=== PATIENT | female | born 1965 | race Caucasian/White ===

== ENCOUNTER 2023-10-03 13:04 | Outpatient (OUT) | payer OTHER, SELFPAY ==
--- NOTE | 2023-10-03 13:08 | VEIN_ITS ---
Patient Name: ANUPAMA CARDOSO MR#: [id number] : 1965 Exam Date: 10/03/2023 Ordering Doctor: DAISY ALEXANDER CNP RADIOLOGY REPORT PROCEDURE: VC EXT VENOUS REFLUX ALICIA LMTD COMPARISON: None. INDICATIONS: I83.813 Bilateral painful varicose veins TECHNIQUE: Duplex imaging of the lower extremity to assess the deep and superficial venous system for the presence of deep or superficial venous incompetence and to document the location and severity of disease. The study includes evaluation of the great saphenous vein (GSV), anterior accessory saphenous vein (AASV) and small saphenous vein (SSV). Patient scanned in reverse Trendelenburg and standing. FINDINGS: RIGHT LOWER EXTREMITY: Saphenofemoral Junction Reflux: Yes 8.6mm 3.4 sec GSV: Diam (mm) Reflux/ Time (sec) Proximal Thigh 7.5 Yes 0.7 Mid Thigh 5.2 Yes 0.5 Distal Thigh 4.7 Yes 1.1 Prox Calf 4.0 Yes 0.2 Mid Calf 5.2 Yes 0.7 Saphenopopliteal Junction Reflux: 6.3mm Yes 0.7 SSV: Proximal Calf 5.5 Yes 0.5 Mid Calf 5.0 Yes 3.8 AASV: Proximal Thigh 6.1 Yes 1.0 Mid Thigh 4.4 Yes 2.1 Distal Thigh Thrombi: No acute or chronic thrombus. Compressibility: Normal. Flow: Mild deep venous reflux. Preforator: None. Tech Note: Incompetent varicose vein mid posterior calf off of SSV measures 4.1 mm with 0.6s reflux. Varicose vein mid anterior thigh off of AASV measures 4.4 mm with 1.7s reflux. Varicose vein proximal lateral lower leg measures 5.0 mm with 2.1s reflux. Varicose vein proximal medial lower leg measures 4.0 mm with 0.8s reflux. LEFT LOWER EXTREMITY: Saphenofemoral Junction Reflux: Yes 7.0 mm 0.8 sec GSV: Diam (mm) Reflux/Time (sec) Proximal Thigh 8.0 Yes 1.2 Mid Thigh 4.8 Yes 1.0 Distal Thigh 4.2 Yes 3.1 Prox Calf 3.9 Yes 2.1 Mid Calf 2.6 Yes 0.3 Saphenopopliteal Junction Relux: 5.5 mm Yes 0.6 SSV: Proximal Calf 6.1 Yes 0.7 Mid Calf 4.4 Yes 0.7 AASV: Not present Proximal Thigh Mid Thigh Distal Thigh Thrombi: No acute or chronic thrombus. Compressibility: Normal. Flow: Mild deep venous reflux. Hydrochloric Acid Operator: Mid medial lower leg measures 3.2 mm with 3.3s reflux. Tech Note: Incompetent varicose vein proximal medial lower leg measures 4.1 mm with 2.0s reflux. Varicose vein mid lateral calf off of SSV measures 4.0 mm with 1.0s reflux. CONCLUSION: 1. Abnormally dilated and incompetent bilateral great saphenous veins, bilateral small saphenous veins, and right anterior accessory saphenous vein. 2. Multiple incompetent branch saphenous varicosities bilaterally. Dictated by: Heriberto Barnes M.D. on 10/03/2023 at 13:58 Approved by: Heriberto Barnes M.D. on 10/03/2023 at 14:19
--- NOTE | 2023-10-03 13:08 | VEIN_ITS ---
Patient Name: ANUPAMA CARDOSO MR#: [id number] : 1965 Exam Date: 10/03/2023 Ordering Doctor: DAISY ALEXANDER CNP RADIOLOGY REPORT PROCEDURE: FACILITY [facility] VEIN [facility] - OFFICE VISIT INITIAL COMPARISON: None. PROGRESS NOTES: [age] year old female who presents with a 15 year history of gradual onset dilated bulging veins, leg pain, swelling, discolored veins. The patient's leg symptoms are symmetric bilaterally. There has been a progression of symptoms over time. This increases with prolonged leg dependency. The patient describes an improvement with rest, elevation, exercise, support stockings. The patient denies any signs and symptoms to suggest arterial ischemia. The patient describes a family history varicose veins on maternal side. The patient has drinking and smoking history of occasional alcohol consumption; no tobacco use. Patient has a past medical history significant for hypothyroidism, migraine headaches. The patient denies a history of deep venous thrombus or pulmonary embolus. See separate history and physical for medication list. No prior treatment for varicose or spider veins. Current use of compression stockings. After review of nurse notes, history and physical exam I discussed at length the pathophysiology of venous hypertension and possible treatments, therapies and strategies available. We discussed at length the importance of elevating the lower extremities above the level of the heart, increased physical activity and compression stocking use. Ultrasound venous reflux study performed today was discussed at length with the patient. The report demonstrates abnormally dilated and incompetent bilateral great saphenous veins, bilateral small saphenous veins, and right anterior accessory saphenous vein. There are multiple dilated and incompetent branch saphenous varicosities. PHYSICAL EXAM: The right leg demonstrates several varicosities, multiple reticular and spider veins, no ulceration, mild edema, no skin discoloration. The left leg demonstrates several varicosities, multiple reticular and spider veins, no ulceration, mild edema, no skin discoloration. Both thighs, legs and feet were symmetrically warm to the touch. Good posterior tibial and dorsalis pedis pulses were present bilaterally. VEIN/ Facility NEW [facility] IMPRESSION: 1. Bilateral lower extremity venous insufficiency 2. Bilateral lower extremity varicose veins 3. Mild bilateral lower extremity subcutaneous edema 4. No flow significant arterial disease 5. CEAP: C3, EC, , [place] PLAN: 1. Continued use of compression stockings 2. Elevated legs and increased physical activity symptomatic relief 3. Endovenous laser ablation of right great saphenous vein, left great saphenous, right small saphenous, left small saphenous, right anterior accessory saphenous vein. 4. Microfoam chemical ablation of incompetent branch saphenous varicosities bilaterally. 5. Bilateral sclerotherapy for prominent reticular and spider veins. Nurse notes, history and physical were reviewed and confirmed, see attached forms. The nurse was present throughout the physical exam and consultation Dictated by: Heriberto Barnes M.D. on 10/03/2023 at 14:19 Approved by: Heriberto Barnes M.D. on 10/03/2023 at 14:24
== END 2023-10-03 13:05 | disposition home or self-care (01) ==
LOC: VC 13:04
PROVIDERS: PCP Student in an Organized Health Care Education/Training Program
DX: I78.1 Nevus, non-neoplastic (principal); I83.813 Varicose veins of bilateral lower extremities with pain
CPT/HCPCS: 93970; G0463

== ENCOUNTER 2023-10-25 13:03 | Outpatient (OUT) | payer OTHER, SELFPAY ==
--- NOTE | 2023-10-25 13:05 | VEIN_ITS ---
The [address] [address] Patient Name: ANUPAMA CARDOSO MRN: [id number] date: 1965 Sex: F Assigned Patient Location: Current Patient Location: Accession/Order Number: [id number] Exam Date: 10/25/2023 13:14 Report Date: 10/25/2023 15:25 At the request of: FRANCES LEWIS Procedure: VC Endovenous Ablation 1VeinRT EXAMINATION: VC Endovenous Ablation 1VeinRT HISTORY: Pain due to varicose veins of bilateral legs I83.813 The risks and benefits of the procedure had been previously discussed, and were rediscussed at length. Informed written consent was obtained. Rj Mathur RN and Roma Arevalo RDMS, RVT assisted. Time out procedure was performed. The right lower extremity was prepared and draped in the usual sterile fashion to allow knee flexion in the sterile field. Duplex ultrasound probe was draped in a sterile cover, sterile transmission gel was used. Venous mapping was performed with the areas of dilation and large tributaries marked. The total length was 42 cm from the entry proximal calf to 3 cm below the Saphenofemoral junction. The diameter of the right great saphenous vein ranged from 7.5 mm. A 30 gauge needle and 1% buffered lidocaine was used to anesthetize the entry site. A 4 mm incision was made with a scalpel and the saphenous vein was entered percutaneously under direct ultrasound guidance with a micropuncture set, a single stick was successful in gaining access. A micro-guide wire was inserted and the needle removed. A micro-set including a dilator was inserted over the microwire and the needle and dilator were removed. A guide wire was inserted through the micro-set and guided through the saphenous vein to the saphenofemoral junction. The dilator was removed and an introducer sheath was inserted over the wire until the end of the sheath entered the saphenofemoral junction. The dilator and wire were removed and the 600 micron fiber was introduced and placed and positioned so that it extended beyond the sheath and was 3 cm distal to the saphenofemoral or saphenopopliteal junction. Final position of the fiber was determined by ultrasound guidance and duplex imaging. Tumescent anesthetic was delivered by ultrasound guidance. 175 cc of fluid was delivered along the entire course of the saphenous vein. The solution consisted of 1000 cc of normal saline with 40 mL of 1% lidocaine and 20 mL of sodium bicarbonate. A final positioning check was made. The energy source was turned on by means of the foot pedal and the fiber and sheath were withdrawn. The total number of Joules delivered was 2077. The laser was active for 260 seconds under continuous pulse, average laser use of 8 J. Laser start time: 1:56 PM Laser stop time: 2:01 PM Date: 10/25/2023. A duplex ultrasound revealed compressibility and flow at the saphenofemoral junction immediately after the procedure. Hemostasis at the access site was achieved. The skin incision of the saphenous vein was closed with a 4 x 4. A compression stocking was applied. Postop instructions were given. A follow up appointment was recommended and scheduled. The patient tolerated the procedure well. Electronically authenticated by: JOSE FISHER Date: 10/25/2023 15:25
[2023-10-25] MEDS: LIDOCAINE HCL 1% 100 MG/10 ML MDV INJ (13:40)
[2023-10-25] MEDS: 0.9 % SODIUM CHLORIDE 500 ML, LIDOCAINE HCL 20 ML, SODIUM BICARBONATE 10 MEQ INJ (13:41)
== END 2023-10-25 13:04 | disposition home or self-care (01) ==
LOC: VC 13:04
PROVIDERS: PCP Radiology Diagnostic Radiology; Visit Provider Radiology Diagnostic Radiology
DX: I83.813 Varicose veins of bilateral lower extremities with pain (principal)
CPT/HCPCS: 36478

== ENCOUNTER 2023-11-01 14:23 | Outpatient (OUT) | payer OTHER, SELFPAY ==
--- NOTE | 2023-11-01 14:25 | VEIN_ITS ---
Patient Name: ANUPAMA CARDOSO MR#: [id number] : 1965 Exam Date: 11/01/2023 Ordering Doctor: DR DELBERT ROSA M.D. RADIOLOGY REPORT PROCEDURE: VC FACILITY [facility] VEIN CENTER - OFFICE VISIT FOLLOW UP COMPARISON: None. PROGRESS NOTES: The patient reports no significant problems following intravenous laser ablation of the right great saphenous vein. The patient has worn her compression stockings. The patient require oral analgesics. The patient has done exercises as instructed. Physical exam demonstrates no bruising. No erythema or warmth to suggest cellulitis or thrombophlebitis. No active ulceration. The thrombosed right great saphenous vein can be partially palpated Review of the ultrasound performed the same day demonstrates occlusive thrombus extending throughout the treated right great saphenous vein with heat induced thrombus 1.9 cm from the saphenofemoral junction. The patient expressed a desire to proceed with treatment of incompetent left great saphenous vein. VEIN/ Facility EST LMTD IMPRESSION: 1. Successful ablation of the right great saphenous vein. 2. Persistent incompetent left great saphenous vein. PLAN: Intravenous laser ablation left great saphenous vein Nurse notes, history and physical were reviewed and confirmed, see attached forms. The nurse was present throughout the physical exam and consultation Dictated by: Delbert Rosa MD on 11/01/2023 at 14:42 Approved by: Delbert Rosa MD on 11/01/2023 at 14:45
--- NOTE | 2023-11-01 14:26 | VEIN_ITS ---
Patient Name: ANUPAMA CARDOSO MR#: [id number] : 1965 Exam Date: 11/01/2023 Ordering Doctor: DR DELBERT ROSA M.D. RADIOLOGY REPORT PROCEDURE: VC EXT VENOUS RT LMTD COMPARISON: None. INDICATIONS: Phlebitis of superficial veins of rt lower extremity I80.01 TECHNIQUE: Lower extremity corrales scale and Duplex Doppler evaluation of the deep venous system from the inguinal ligament through the calf veins. FINDINGS: REGION: Right lower extremity. THROMBI: Negative for DVT. Heat induced thrombus visualized 1.9cm from the SFJ. The heat induced thrombus extends from groin to proximal calf. COMPRESSIBILITY: Non-compressible segments corresponding to thrombus FLOW: Areas of no flow corresponding to thrombus CONCLUSION: Post ablation occlusion of the right great saphenous vein with heat induced thrombus 1.9 cm from the saphenofemoral junction Dictated by: Delbert Rosa MD on 11/01/2023 at 14:39 Approved by: Delbert Rosa MD on 11/01/2023 at 14:39
== END 2023-11-01 14:24 | disposition home or self-care (01) ==
LOC: VC 14:23
PROVIDERS: PCP Radiology Diagnostic Radiology; Visit Provider Radiology Diagnostic Radiology
DX: I80.02 Phlebitis and thrombophlebitis of superficial vessels of left lower extremity (principal)
CPT/HCPCS: 93971; G0463

== ENCOUNTER 2023-12-14 12:21 | Outpatient (OUT) | payer OTHER, SELFPAY ==
[2023-12-14] MEDS: 0.9 % SODIUM CHLORIDE 500 ML, LIDOCAINE HCL 20 ML, SODIUM BICARBONATE 10 MEQ INJ (12:25)
[2023-12-14] MEDS: LIDOCAINE HCL 1% 100 MG/10 ML MDV INJ (12:25)
--- NOTE | 2023-12-14 12:25 | VEIN_ITS ---
[address] [address] Patient Name: ANUPAMA CARDOSO MRN: [id number] date: 1965 Sex: F Assigned Patient Location: Current Patient Location: Accession/Order Number: [id number] Exam Date: 12/14/2023 12:39 Report Date: 12/14/2023 13:19 At the request of: FRANCES LEWIS Procedure: VC Endovenous Ablation 1VeinLT EXAMINATION: VC Endovenous Ablation 1Vein, left great saphenous vein HISTORY: Pain due to varicose veins of bilateral legs I83.813 COMPARISON: No relevant comparison available. TECHNIQUE: The risks and benefits of the procedure had been previously discussed, and were rediscussed at length. Informed written consent was obtained. Carol Arevalo and Rj Mathur assisted. Time out procedure was performed. The left lower extremity was prepared and draped in the usual sterile fashion to allow knee flexion in the sterile field. Duplex ultrasound probe was draped in a sterile cover, sterile transmission gel was used. Venous mapping was performed with the areas of dilation and large tributaries marked. The total length was 39 cm from the entry mid calf to 3 cm below the saphenofemoral junction. The diameter of the greater saphenous vein ranged from 5-8 mm. A 30 gauge needle and 1% buffered lidocaine was used to anesthetize the entry site. A 4 mm incision was made with a scalpel and the saphenous vein was entered percutaneously under direct ultrasound guidance with a micropuncture set, a single stick was successful in gaining access. A micro-guide wire was inserted and the needle removed. A micro-set including a dilator was inserted over the microwire and the needle and dilator were removed. A 0.018 guide wire was inserted through the micro-set and threaded through the saphenous vein to the saphenofemoral junction. The dilator was removed and an introducer sheath was inserted over the wire until the end of the sheath entered the saphenofemoral junction. The dilator and wire were removed and the 600 micron fiber was introduced and placed and positioned so that it extended beyond the sheath and was 3 cm peripheral to the saphenofemoral femoral junction. Final position of the fiber was determined by ultrasound guidance and duplex imaging. Tumescent anesthetic was delivered by ultrasound guidance. 225 cc of fluid was delivered along the entire course of the saphenous vein. The solution consisted of 1000 cc of normal saline with 40 mL of 1% lidocaine and 20 mL of sodium bicarbonate. A final positioning check was made. The energy source was turned on by means of the foot pedal and the fiber and sheath were withdrawn. The total number of Joules delivered was 1901. The laser was active for 238seconds under continuous pulse, average laser use of 8 J. Laser start time 1311 12/14/2023 . Laser stop time 1315 12/14/2023 . A duplex ultrasound revealed compressibility and flow at the saphenofemoral junction immediately after the procedure. Hemostasis at the access site was achieved. The skin incision of the saphenous vein was closed with a 4 x 4. A compression stocking was applied. Postop instructions were given. A follow up appointment was recommended and scheduled. The patient tolerated the procedure well and was discharged in good condition . VEIN/VC Endovenous Ablation 1VeinLT IMPRESSION: Technically successful endovenous laser ablation of the left great saphenous vein Electronically authenticated by: FRANCES LEWIS Date: 12/14/2023 13:19
--- OUTSIDE RECORDS SUMMARY | 2023-12-14 12:28 | XMS_ITS | CCD ---
Author Organization [facility] Care Team Providers Care Rn Radiation Oncology Name Role Phone Paola ALEXANDER Primary Care Physician [phone] PAOLA ALEXANDER Attending Unavailab PAOLA Burden Attending Unavailab bud Medications Current Medications Medication Drug Class(es) Dates Sig (Normalized) Sig (Original) ciclopirox 80 mg/ml topical solution (3 sources) Start: 08-24-2021 ciclopirox topical 8% solution 1 kelsi, Topical, Daily, 9.9 mL, Refill(s) 2, Apply to adjacent skin and affected nails daily. Remove with alcohol every 7 days., [facility], 170, cm, 08/24/21 14:04:00 EST, Height/Length Dosing, 92.1, kg, 08/24/21 14:04:00 EST, Weight Dosing Start Date: 08/24/21 Status: Ordered FLUoxetine 20 mg oral capsule (3 sources) Serotonin Reuptake Inhibitor Start: 12-18-2014 take 1 capsule by mouth once daily FLUoxetine 20 mg Cap 20 mg = 1 cap(s), Oral, Daily, Refills(s) 0, Depression Start Date: 12/18/14 Status: Ordered levothyroxine sodium 0.05 mg oral tablet (3 sources) l-Thyroxine Start: 07-07-2019 levothyroxine 50 mcg (0.05 mg) Tab Refills(s) 0 Start Date: 07/07/19 Status: Ordered Ventolin HFA 90 mcg/inh Aerosol (3 sources) Start: 07-05-2020 take 2 puff(s) by inhalation four times daily Ventolin HFA 90 mcg/inh Aerosol 2 puff(s), Inhalation, QID Shortness of breath or wheezing, 1 EA, Refill(s) 0, [facility], 170, cm, 07/05/20 14:58:00 EST, Height/Length Dosing, 93.5, kg, 07/05/20 14:58:00 EST, Weight Dosing Start Date: 07/05/20 Status: Ordered Completed/Discontinued Medications Medication Drug Class(es) Dates Sig (Normalized) Sig (Original) rizatriptan 10 mg oral tablet (3 sources) Serotonin-1b and Serotonin-1d Receptor Agonist Start: 08-24-2021 Maxalt 10 mg Tab 10 mg = 1 tab(s), Oral, Daily, PRN Migraine headache, one po at onset migraine. 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 Mycoses (3 sources) Onychomycosis of toenails 08-24-2021 Episodic Other and unspecified benign neoplasm (3 sources) Polyp of colon 07-27-2021 Episodic Other nutritional; endocrine; and metabolic disorders (3 sources) Body mass index 30+ - obesity 08-24-2021 Chronic Other nutritional; endocrine; and metabolic disorders (3 sources) Simple obesity 07-05-2020 Chronic Thyroid disorders (3 sources) Hypothyroidism 07-07-2019 Chronic Results Test Name Value Interpretation Reference Range Facility CHEMISTRYOrdered By: SYSTEM SYSTEM on 07-11-2023 TSH Qn 1.44 m[IU]/L Normal 0.34 - 5.60 mcIU/mL Remisol Chem Physician Orderon 06-07-2023 Physician Order [id number] Normal [facility] Coding Summary.on 06-15-2022 Coding Summary. CD:[id number] +PGhlYWQ+PE1F ASQpE52zvDYaz S6WE8nJHF4TWX TVMIIMAM3KML9 ylJE8XIhuO6As biAv EiuffGDaGJ38U Qu4ATM6yQxhJI hktM3yrFQmW3w 1JeFyLL86zN31 XFtjNUCvBzY1G jZpbjsgbWFy B5exUvWswHHyX yc+PHRhYmxlIH dpZHRoPScxMDA vCsDxtSddVZ7v Ok0yTOGqMQFnj GxhcHNlOiBj l9viGMBqJCfqS M0whBqhM4ByyE S5DRByf5e9Fh2 8dHI+PHRkIHN0 yQqqAWteh206X aDvz0vbAJN6 yYBeJXviMTL7O 90km3Z9KXPzDQ BvUDR9oOX7uH6 jkUqjqjytA7Bw gBXzCbZ2AHZ1a RYgfJ6fwYky aumiiN2oPxw+Q 56FQD0HNCATDC 9GQcb6M7HwIak vdHI+FO21KMHs ML90sJChePMbq 0ejfEl8WzVe GBDiMSJ5kWfxM Cwrl4XdWWOmN1 8msZRxg1U6LHA vbGxhcHNlOyBl vIK9dG3zOGtir hrzm4jqilbj Bvolq3lkda52b P11Y45wSSxnIG ZkIKO1WXUdWWX brMjwsc5rcB9m Ii8+SNlha1jrm 1eroCr7XpLc JSIgdmFsaWduP UK0i2ZvXt51Z0 EnvLdku2LtJpk 2ol35fEKvk4M1 vQV8UBqcPHWml P5bVTutMwG6 QRNfLkYdeV02x HEgCIyaQt6deB ygtIpaVO2bEUY rlxgsWLKpfE6r LWJvdHRvbTogM F0aBKSvkmpf s482HuIdZXA8U YHezJFlX3GjgA 9yOiAjMDAwMDA xY2FvdHOpZUyu Z300ULtzJzY0P FUphsArR2Xv XNGzqNtiGgV8n 8S0Tf1Xu1Kate zgSNV9GZivHDU pQrB7HxDbUqR6 P3XaXdq3ECOil FlmYH7uV1Wn ZGRpbmctcmlna TH2TNVbYAIwlZ 94dQIePFvwPe7 bf9K0m093NVCl TOAqlM07Ld0kt DogMTBwdCBU dU3tmnhcm6xoc jogIzAwMDAwMD x1VAi6DBFenZf pNwNmATR1PjY5 PCP0sDZfxR7kb UfqwhsytU7f Oyc+A35gaF8vM KV7OTT7wqqzVF DiwdNwNF85IT3 8Y7XbTitqcQGy bGU+PGRpdiBzd GlzFM5nDgHl m4ujv0KkZDobA 2RkZGRkZDsnPj c8MGWbDGW8aXR 4xO2sFZAfYLzt q4H6jQG5F4Anc oJcte8ef1fd ECMsNRfxT33go ERad9N3OUYfsB I1XNEtlEmaUlA abU70Ugb+PGNv jLrzm9YcGlvwy 7kbg8gmbJj6 IjMwJSIgdmFsa JnoNJR9i2PdGr 79Q43cVRifKIB oPSIxNSUiIHZh eQehqi3ntH8yO i8+PGNvbCB3 bIC8cB1qNZQqL iX4MFnxV270Ms HjfQMsXrhim9p ie7hwuTy6NsCc JSIgdmFsaWduP DI3w2VyRh26 H89vOEjjQONyE SIyMCUiIHZhbG mvrn9txZ1xOt0 +ZK0lf6qneu38 jW15cBK+PHRkI JH9aNxwWBej CCWwrW6fVQwoH hS5XPIxJwQstP 20aXBvGCntEa3 imWrnnFzrUP3m XMYmrseos258H xBfr8baVVKd mCLwLGtpKII6X 16pd8W8WYQvAQ WpAXD0mPZ7hA5 hbGlnbjogbGVm dDsgdmVydGljY IapZXqiR625 IHRvcDsnPlBhd GllbnQgTmFtZT o7C4YcScy2YJC gcIorKW5iyBGh JIuvAs1jtFjia IqqRZ1hQYZi jolmn460MyUul 2xkIDEwcHQgVG woGWK3O72ox9Z 1TIFkTSOuELZ4 wMQ0wO5mnAsrl jogbGVmdDsg dmVydGljYWwtY KdaH562EAKyzT snPkJpcnRoIER zxUN9AA67CU84 rMHwz4S9yQG6K 3BhZGRpbmct fagngPQ9JZAtS CVrmK38Qn8cuC ppZc3tKTAnARE 4CNCovCZhO6We kF0jJeAyRNUeE INjP9RxnQBs MOocO009ZPyxF oN0KJAgazMeT8 FsLWFsaWduOiB 8v8X2Yv7FL6U4 UV09ZD91uMBjk 7J6kVS4C4Su ZGRpbmctcmlna EV1MTEcFEPttR 38Tz0udNdtGr6 cDAEwPWH2VVNt qMXdV8FjbQ7xB iAjMDAwMDAw S5BrsNIaFWgrA 824HSqnEwH9LK EmtiVfP1PhLLZ akAeiQkC3t0P2 Eq0PSXp6UK17I D33cPDke2X7 mSW8V6EvDHWbs fdqqsnqiVW7UJ NwZQBosF57Je6 wtYkgHc3nHVAy EHG2VXJjfJKkV 2AmqH1uThXw RPQwDIBzU5Gbh XDrIBceF133QG umCwC0NRDfpgM mK4OtUPOhrLgl PtQ2r3A2Qm2VO TFxJE52IPG3 pIA5ZH43EF64X 3RyPjwvdGFibG U+PHRhYmxlIHd pZHRoPScxMDAl JxKznFgiCJ8hQ j8bDPYrLCPp bGxhcHNlOiBjb 2xsYXBzZTsgZW 0qlOmdR2QlaLU 6VXJxq8b8Tb29 B68kK7ZkjIY+P NTleMO6uIP7 cC6yZyWvNsE2G RmlV711UsVvdT FnZpxnz2fmz3y xmBk2VmL6GOQn ntRiwStxLTD3u 3JrFn42Q95m IHdpZHRoPSIxN SUiIHZhbGlnbj 5hxP4wQe9+PGN wcIB6sMD5gQ1o UkNfWgY3PDimB 249InRvcCIv Riyqw5tmr6kaq Zm7AcLuERKiro TnxRsoXDQ7f2O dKg69K8ObnXaj t2IyEgo8lo18n KBpn1G6dUJ8 O5GdJHIuhpbyq SGkhMleZO1iPI BpbjtwYWRkaW5 hAUWuU7r4UcAr JjO2PCjkM4Ymt vR7TBJzwBMa ZAamXVN8V26gp 4L1DDYpXKStHU E0rJR9dP4raKa nbjogbGVmdDsg dmVydGljYWwtY TriL220WBZx wUclMTMgaG2bM WJvdHRvbTogMC 4wNTBpbjsnPlJ PVEhIQUFSLCBL QVRITEVFTiBNP P24HO68sNBi r8T2cBO4B5DyY GRpbmctcmlnaH W0PGQbVYRziS8 1vXGtXRavJv6e q7Z3b733ZSRwJ LIlmD63Al2l dDogMTBwdCBUa E9ljzelu6nsmk ogIzAwMDAwMDt 0ZSu5KZQiyFtk AvSyALE7XeL7K WD7rELhoS4u aGhxbjialI0sP yc+MDQvMDgvMT b0XtypzVB+PHR fVEL6yZfuLGkd XTYvrO9xXXEvK 4y5TwKaIhF4 ZLdbF2FbGQLoj wkeLs41tQ3mOr GeAyL8ASjzO2O edxK0ZYMcxUGr GWjkZXS8I39kb 0D5DMCvFCDq VIF1sWG7iW8zy GlnbjogbGVmdD sgdmVydGljYWw jGVxoM501IESn kWvqHhR5FBucX JMgTY38ED99 dZLcm8Z7kNU0U 3BhZGRpbmctcm jttON9ESZySIZ jxX77bYGpHRsw Cr1gl9E7o785V OGmJGTpgX60 Vx3smSenRPClz QOGdP6bcxwhy5 xvcjogIzAwMDA vNBd4UEh2BHWf pJtaKsErPAU5N wM0VRW9rLRj iP0hwVdaxidct G9wOyc+RmVtYW ldOX54FH47nPV rw0O7cRJ4A1It ZGRpbmctcmlna VD7VCZaKQTs iQ44rXVdELmtQ h5hw6A6j077HE YeEBQzrB03Gh7 udDogMTBwdCBU dG4pvyuru3cyp jogIzAwMDAw LTw9YDe4EFFgw VclVjLpPAS0Vz Y5VTD2yQFwgI5 jgMpujgnszG5i Oyc+A8E2gLZ7t WVudDwvdGQ+ AS82rk28Z6NgM xfdHzr3NHJiNJ N8tIC8lC3gSYI zUCmog3M8xOK7 F5LrbjUeca1es 2xsYXBzZTog P40qqAUzx7U3K WTtjAV2YGVifI xaZfGxqJ57Azq +OWEdnKskr2Id Mppfj6hly3ugf Lh7KmByXOSd ymYpsLwrMHC6t 3EkWp44O96zSW dpZHRoPSIzMCU lKSUyjMxhzf6k uP4qNf8+PGNvb DL8eNT8vC7l OuYoUkB3KUgdA 249InRvcCIvPj gfu2qjq2aqpFl 9IjIwJSIgdmFs nPonCBW3f2JuV c40G0EhwXpj p8CwVtp2pv97i RHzu4L6uCW4L6 BhZGRpbmctbGV ndJgfHI1gGSPq hfavCCVuyO2vX AVsG5w5HcRy ExX1WJddA3Jgo uI9BVKlmVWiQA KhfCVKgK4fgpr te7rwjdixSwBq UPGqPYu6QEd6X WFsaWduOiBs MJZ6QjU4PDI7q NCozB0qsBzzfs qxrZ3aZtd+UGh 1p0lapIHrID7k uZS8TI51SS52a KPmx9V0uZI7 S2EmIJOesmnlr xnwaJL9JMEsAE ZtkA05Uj2mqYf vBc7mHMTtWJB1 PNHtiVAiX2Arw B4mIrQzWCJs OQLnX5YyoFCjA OkuO220FMbnTy Z4ALCdgbHbQ7B sLWFsaWduOiB0 d4Z7Og1LCI31T F70QK53iYNw h3J3dVX8L4XbQ GRpbmctcmlnaH G4DKAwKYBbiS0 7Xw2gpYyjUz1d KAXsHVN1MVDci CHnS6BvoR4s OiAjMDAwMDAwO 6VhbKWuKFruL2 25UMhjZmB5JBL wltCcM6SeEADu bQegScE1j9E5X w0NWe60YN83 HZ48hWKbi8F2f AN1N2BtGHVnyy bkekrjnFE0HIV oCIRumO95Hy7t uSzbTe3oFQIjB TT1IERfiUYc R3FinI5sXnPhE EIkHZWxD8QzhP GyWRblH972SSl cEpL1AEEpwbSu C6GmOSSeyRifY yH6k9S9Wo5P OApeplj8R9ReS jwvdHI+PC90YW QoOB93uZFawZZ um7kyeLs9YaBi GQBkGHY3sRgiT Mcsq8KoBDGp Y29s (more content not included)... Normal [facility] CHEMISTRYOrdered By: SYSTEM SYSTEM on 06-09-2022 25-hydroxyvitamin D3 [Mass/Vol] 49.7 ng/mL Normal 30.0 - 100.0 ng/mL [facility] Remisol Albumin [Mass/Vol] 4.4 g/dL Normal 3.3 - 5.0 gm/dL [facility] Albumin/Globulin [Mass ratio] 1.3 {ratio} Normal 1.1 - 2.2 [facility] ALP [Catalytic activity/Vol] 60 [iU]/d Normal 21 - 98 Int._Unit/L [facility] ALT No additional P-5'-P [Catalytic activity/Vol] 15 [iU]/d Normal 6 - 46 Int._Unit/L [facility] Anion gap [Moles/Vol] 10 mmol/L Normal 6 - 16 mEq/L [facility] AST [Catalytic activity/Vol] 20 [iU]/d Normal 5 - 43 Int._Unit/L [facility] Bilirubin [Mass/Vol] 0.4 mg/dL Normal 0.0 - 1 .1 mg/dL [facility] Calcium [Mass/Vol] 9.6 mg/dL Normal 8.9 - 11. 1 mg/dL [facility] Chloride [Moles/Vol] 104 mmol/L Normal 101 - 1 11 mmol/L [facility] Cholesterol [Mass/Vol] 155 mg/dL Normal 120 - 200 mg/dL [facility] Cholesterol in HDL [Mass/Vol] 53 mg/dL Invalid Interpretation Code [facility] Cholesterol in LDL [Mass/Vol] 85 mg/dL Normal <=129mg/dL [facility] Cholesterol in VLDL [Mass/Vol] 14 mg/dL Normal 7 - 40 mg/dL [facility] CO2 [Moles/Vol] 26 mmol/L Normal 21 - 31 mmol/L [facility] Creatinine [Mass/Vol] 0.8 mg/dL Normal 0.5 - 1.3 mg/dL [facility] GFR/1.73 sq M.predicted among blacks MDRD (S/P/Bld) [Vol rate/Area] mL/min/1.73 m2 Normal >=59mL/min/1.7 3 m2 [facility] Chem S GFR/1.73 sq M.predicted among non-blacks MDRD (S/P/Bld) [Vol rate/Area] mL/min/1.73 m2 Normal >=59mL/min/1.7 3 m2 [facility] Chem S Globulin (S) [Mass/Vol] 3.5 g/dL Normal 1.4 - 4.0 gm/dL [facility] Glucose [Mass/Vol] 98 mg/dL Normal 55 - 199 mg/dL [facility] Potassium [Moles/Vol] 4.4 mmol/L Normal 3.5 - 5.3 mmol/L [facility] Protein [Mass/Vol] 7.9 g/dL High 6.0 - 7.8 gm/dL [facility] Sodium [Moles/Vol] 136 mmol/L Normal 135 - 145 mmol/L [facility] Triglyceride [Mass/Vol] 69 mg/dL Normal <=149mg/dL [facility] TSH Qn 0.75 m[IU]/L Normal 0.34 - 5.60 mcIU/mL [facility] Urea nitrogen [Mass/Vol] 14 mg/dL Normal 5 - 21 mg/dL [facility] Urea nitrogen/Creatinine [Mass ratio] 18 mg/mg Normal 10 - 20 [facility] HEMATOLOGYOrdered By: Darline lewis on 06-09-2022 Erythrocyte distribution width (RBC) [Ratio] 14.0 % Normal 10.9 - 14.2 % [facility] Hematocrit (Bld) [Volume fraction] 42.7 % Normal 34.0 - 46.0 % [facility] S Hemoglobin (Bld) [Mass/Vol] 13.7 g/dL Normal 12.0 - 16.0 gm/dL [facility] MCH (RBC) [Entitic mass] 29.2 pg Normal 27.0 - 34.0 pg [facility] HemeAutoSS MCHC (RBC) [Mass/Vol] 32.0 g/dL Normal 31.4 - 36.0 gm/dL [facility] MCV (RBC) [Entitic vol] 91.1 fL Normal 80.0 - 100.0 fL [facility] Platelet mean volume (Bld) [Entitic vol] 10.3 fL Normal 6.4 - 10.8 fL [facility] HemeAut oSS Platelets (Bld) [#/Vol] 219.0 E9/L Normal 150. 0 - 500.0 E9/L [facility] RBC (Bld) [#/Vol] 4.7 E12/L Normal 4.3 - 5.9 E12/L [facility] HemeAutoSS WBC corrected for nucl RBC Auto (Bld) [#/Vol] 5.7 E9/L Normal 4.0 - 11.0 E9/L [facility] HemeAutoSS Encounters Encounter Date Encounter Type Care Provider Facility Start: 09-18-2023 End: 09-18-2023 ambulatory PAOLA A DONNAMILLER Not Available Start: 08-21-2023 End: 08-21-2023 ambulatory PAOLA A DONNAMILLER Not Available Start: 07-11-2023 End: 07-11-2023 Patient encounter procedure Jonnathan Miranda [facility] Start: 06-09-2022 End: 06-09-2022 Patient encounter procedure Jonnathan Miranda [facility] Start: 05-10-2022 End: 05-10-2022 Lab Drop off Jonnathan Miranda [facility] Procedures Date Procedure Procedure Detail Performing Clinician Start: 12-25-2014 left needle-localize d ultrasound-guided left breast biopsy times two Jonnathan Miranda Start: 07-02-2001 Diagnostic laparoscopy Jonnathan Miranda Comment on above: 2001 Start: 07-02-1999 section Jonnathan Miranda Breast biopsy and re lated procedures Jonnathan Mirnada Comment on above: multiple both breast s Endometrial ablation Jonnathan encarnacion Excisional biopsy of breast Jonnathan Miranda Comment on above: left; 12/2003, 10/2006 Hernia repair Jonnathan Miranda Comment on above: pedriatric, right Immunizations Immunization Date Immunization Notes Care Provider Fa cility 03-23-2022 influenza virus vaccine, unspecified formulation Jonnathan Miranda [facility] Comment on above: Result Comment: R melva m - Lot#[id number] - Exp 12/18/2022 04-29-2021 influenza virus vaccine, unspecified formulation Jonnathan Miranda [facility] 04-01-2021 influenza virus vaccine, unspecified formulation Jonnathan Miranda [facility] 05-16-2020 zoster vaccine, live Jonnathan encarnacion [facility] 02-23-2020 zoster vaccine, live Jonnathan encarnacion [facility] 02-20-2020 influenza virus vaccine, unspecified formulation Jonnathan Miranda [facility] Payers Date Payer Category Payer Unknown [id number] 1965 Unknown [id number] 1965 Unknown [id number] Social History Date Type Detail Facility Start: 08-24-2021 Tobacco smoking status Never s moked tobacco (finding) [facility] Tobacco smoking status Never Nayane [facility] Sex Assigned At Female [facility] Evaluation + Plan note Radiology Note Date & Type Note Facility Evaluation + Plan note Future Appointments Appointment Date:06/19/2022 03:00:00 PM Scheduled Provider: Location:FT.BD Appointment Type:BD Bone Density (FT) Appointment Date:06/19/2022 03:30:00 PM Scheduled Provider: Location:FT.MAMMOGRAM Appointment Type:MA Screen (FT) Future Scheduled TestsBD Bone Density DEXA 06/19/22MA Mamm Screen w/CAD if perf and 3D Yosi 06/19/22 [facility] Hospital course Narrative Note Date & Type Note Facility Hospital course Narrative No data available for this section [facility] Hospital Discharge instructions Note Date & Type Note [facility] Hospital Discharge instructions No data available for this section [facility] Progress note Note Date & Type Note [facility] Progress note No data available for this section [facility] Summary Purpose Family History No Family History Records Found No data available for this section No Family History Records Found Advance Directives No Advanced Directives Records FoundNo Advanced Directives Records Found Additional Source Comments Patient Care team informatio n (unrecognized section and content) Personnel Name: Paola ALEXANDER CNP Address: Address: [place] [address]- Personnel Name: Paola ALEXANDER CNP Address: Address: [place] [address]- Personnel Name: Paola ALEXANDER CNP Address: Address: [place] [address]- INFORMATION SOURCE (unrecogn ized section and content) DATE CREATED AUTHOR 06/10/2023 [facility] DATE CREATED AUTHOR AUTHOR'S ORGANIZ ATION 09/19/2023 [facility] EPIC FOR RECORDS PERTAINING TO PATIENTS WHO ARE OR HAVE BEEN ENROLLED IN A CHEMICAL DEPENDENCY/SUBSTANCEABUSE PROGRAM, SOME INFORMATION MAY BE OMITTED. This clinical summary was aggregated from multiple sources. Caution should be exercised in using it in the provision of clinical care. This summary normalizes information from multiple sources, and as a consequence, information in this document may materially change the coding, format and clinical context of patient data. In addition, data may be omitted in some cases. CLINICAL DECISIONS SHOULD BE BASED ON THE PRIMARY CLINICAL RECORDS. [facility]. provides no warranty or guarantee of the accuracy or completeness of information in this document.
== END 2023-12-14 12:22 | disposition home or self-care (01) ==
LOC: VC 12:21
PROVIDERS: PCP Radiology Diagnostic Radiology; Visit Provider Radiology Diagnostic Radiology
DX: I83.813 Varicose veins of bilateral lower extremities with pain (principal)
CPT/HCPCS: 36478

== ENCOUNTER 2023-12-19 14:21 | Outpatient (OUT) | payer OTHER, SELFPAY ==
--- NOTE | 2023-12-19 14:24 | VEIN_ITS ---
Patient Name: ANUPAMA CARDOSO MR#: [id number] : 1965 Exam Date: 12/19/2023 Ordering Doctor: DR FRANCES LEWIS M.D. RADIOLOGY REPORT PROCEDURE: VC EXT VENOUS LT LIMITED COMPARISON: None. INDICATIONS: Phlebitis of superficial veins of left lower extremity I80.02 TECHNIQUE: FINDINGS: REGION: Left lower extremity. THROMBI: Negative for DVT. Heat induced thrombus in left GSV 1.6 cm from SFJ and extends to proximal calf. COMPRESSIBILITY: Non-compressible segments corresponding to thrombus FLOW: Areas of no flow corresponding to thrombus OTHER: CONCLUSION: 1. Successful post ablation occlusion of left great saphenous vein. Dictated by: Heriberto Barnes M.D. on 12/19/2023 at 15:03 Approved by: Heriberto Barnes M.D. on 12/19/2023 at 15:05
--- NOTE | 2023-12-19 14:24 | VEIN_ITS ---
Patient Name: ANUPAMA CARDOSO MR#: [id number] : 1965 Exam Date: 12/19/2023 Ordering Doctor: DR FRANCES LEWIS M.D. RADIOLOGY REPORT PROCEDURE: [facility] EST [facility] - OFFICE VISIT FOLLOW UP [facility] PROGRESS NOTES: The patient reports improvement in leg symptoms. There has been interval reduction in varicosities. The patient has followed our recommendations to walk 20-30 minutes once or twice per day since the procedure. Physical exam demonstrates decrease in varicosities of the leg. Persistent varicosities are identified along the legs bilaterally. Review of the ultrasound performed the same day demonstrates occlusive thrombus extending throughout the treated vein(s), see separate report, consistent with a successful ablation. No thrombus extending into or beyond the saphenofemoral junction. The patient expressed a desire to proceed with treatment of remaining incompetent varicosities. The patient was informed that treatment was a process and would require several procedures/sessions. VEIN/[facility] EST LMTD IMPRESSION: 1. Successful ablation of the left great saphenous vein(s). 2. Persistent varicose veins and lower extremity symptoms. PLAN: Endovenous laser ablation of right small saphenous vein. Nurse notes, history and physical were reviewed and confirmed, see attached forms. The nurse was present throughout the physical exam and consultation Dictated by: Heriberto Barnes M.D. on 12/19/2023 at 15:05 Approved by: Heriberto Barnes M.D. on 12/19/2023 at 15:06
--- OUTSIDE RECORDS SUMMARY | 2023-12-19 14:41 | XMS_ITS | CCD ---
Author Organization [facility] Care Team Providers Care Private Client Advisor Name Role Phone Paola ALEXANDER Primary Care Physician [phone] PAOLA ALEXANDER Attending Unavailab PAOLA Burden Attending [...] 24hrs, # 18 tab(s), Refills(s) 1, Pharmacy: [id number], 170, cm, 08/24/21 14:04:00 [...] Chem Physician Orderon 06-07-2023 Physician Order [id number] Normal [facility] Coding Summary.on 06-15-2022 Coding Summary. CD:[id number] +PGhlYWQ+PE1F HROiW51ejIYfr V4QI2qMAD4LIK HYPOGZQR6NDM9 ltDD5ONeaQ5Di biAv GluphSRlOI44O Hk2TBU7aZtrZC lvuT4zkJQoT7y 4HbHhYV03jZ80 WStrIVWsVsI8R jZpbjsgbWFy A3luLfKgrGBxI yc+PHRhYmxlIH dpZHRoPScxMDA pFgJnkVfgUL7i Ci2wIVAqSHRzj GxhcHNlOiBj v1ryIRUpVTyiR Z9liGmkJ1BtbW D2LVElw3d7Cr5 8dHI+PHRkIHN0 tXlpKOfrm146B eLff2xjTSV4 aFNzTEonLQF8J 96rx6U4OLSiVB HkLXS2cND3aO3 jfUfzfwflU7Km hRDhReW4LQW0m QIonQ3gcVos ohcsmS0pQfe+Q 24JZW3ZFBQGAR 2AUui8K3PaMaj vdHI+GX76MJOt LK59xXVgeKKyp 7ivfEp2OrBf RVHgKKE9bSxqZ Mryf2WeXVKlL9 5fdUKyg8V5DMH vbGxhcHNlOyBl rSJ2dG9yNCoff vozl3kdunlq Jmkst5ktdm66b P04R09iEXxeAV GvKMN6GBKmYHH hgJhxxm1apX9j Ii8+HKzoe9xdv 9gtdNk2NmUw JSIgdmFsaWduP HI8z1KaJv30N7 EluUwaz0YiZmp 4bp06dLEve3N9 oYV3VLefQVQvc D9bXVrlDuY3 RJAqUgAsuX69n LNoXPehUh0mfF laeVmsNQ4fGLM odytjEMQiiX2h LWJvdHRvbTogM P7wARJrjkob x613XjQlMRR2O WXvuEUnG4KpzS 9yOiAjMDAwMDA yX6MawQMcJBfn O497PArrQhX7W DDjqpJgL5Ex TOWhjAlyAkS3w 9O1Km1Je2Uhvx ilIKM4VJcuJAG mYlX6AdIjIcZ3 A9TyYxo3BTTrn LrcYQ2uD8Ei ZGRpbmctcmlna II6EPMjXDOvjM 35vPFfMEwuDi4 uf6U9g974LVNo KCWhjV00Ce9ya DogMTBwdCBU cF4jnwibb2ohj jogIzAwMDAwMD x5YQd9CZIiqPn dClAgXIK9YmF9 XLQ5nTQepI4bd HcokmhaoV5p Oyc+Y66bjT9oA YC9GDX8yrbhWF WzpwRaAL88OZ0 9W6YwUvsagJXi bGU+PGRpdiBzd IbzBG2eZjDl d6yae4UnRZzdX 2RkZGRkZDsnPj p9IECaTHB9rAY 8bQ1fWGIpLFnm n1U7vDJ9Y9Uez wNewu5fw9zh TFSxEDxqI05ui MBbw7X5XXRpsX X3VZLykEckOtK ldF57Dst+PGNv cOfwh1GiElvfh 9eof1tpxIk3 IjMwJSIgdmFsa DnyBXI7s9FrAg 77K12uIYczTIH oPSIxNSUiIHZh cKuzzc7hkK0zJ i8+PGNvbCB3 qXZ0yY6fAEBmE rL3FYwoM178Pk AgpRZfCwflr2r qw9oseNo0TfPz JSIgdmFsaWduP ZN5q0NkGe47 I36vWQjmYYFkI SIyMCUiIHZhbG qbfk9hzD2xBl6 +KZ2fk6bzfl02 uB75mDC+PHRkI GL6aIpqGWsk DXPpyU1rMOiyR qH2DAYxUmJjfF 34aCMyWWcpEn5 zdXnzzBdsCC2l OKBiljwac785M cPdd0dsUGCv uVGdEGygHFK9R 14pz4Q4QTPoHM YwWTI5kDG9mE3 hbGlnbjogbGVm dDsgdmVydGljY HorNLfvN818 IHRvcDsnPlBhd GllbnQgTmFtZT o7N7MtMgb9OZJ xtRxdDM1apJNn ITgpGx5oaHidi QhwNX0rWEYr tydje030DkZah 2xkIDEwcHQgVG qfSIZ8Z21sm1V 9EHSgEJYuVXN7 hBH9dJ4vuWarh jogbGVmdDsg dmVydGljYWwtY JwgM420PDUyvU snPkJpcnRoIER ecDD0IE30SR72 hFDax6V6eYY2P 3BhZGRpbmct eoxudFT9PWWxF MKxxX71Xl5xzI naLe3tVNOxCUM 8WITcjJJeG6Ce jL9gPzJyGNLbR BFfY4WlcMIy QKlgV862FLogL uQ4MKHpmmRqD5 FsLWFsaWduOiB 5p7J1Wu2YJ3C8 TG96ZA93xGVxn 4W3cKB1V9Ne ZGRpbmctcmlna RO0BUHgKEIdoK 76Ah1kmWtzNn4 xWQXmZSP9RZLy kBWnW3VzqO3lQ iAjMDAwMDAw X0BebZZvAGazO 179GBowNnF5ZR BmwkQnJ1BcKMG srPsiZcY9t0B1 Wf1ONHp4HY63N I82rWMnt2V0 hLY6J2FeGRJdp gvfdxfgpRH8ZC IiPNFmjA17Vi4 bbNyfQu6xCABf CBM0MCPzgBJzG 9DtvW8lSaQy YUSxDZLdV1Jdu GDuHVggU345UV fvSwM4XIVqkwB hF2VzWCFxtEay BzZ3m9A1Sv7NV JByNU40ARQ6 sMY8LF63PS10W 3RyPjwvdGFibG U+PHRhYmxlIHd pZHRoPScxMDAl JeYpgMkaQU0cD s8oRBIhQAHc bGxhcHNlOiBjb 2xsYXBzZTsgZW 0tiGwlE8AvxPD 1YYCxb3h6Af74 O92cY0RraIK+P PSdyNY5tVH3 bW0dQyJcDeF3L KkzJ481KgGeoR TsJhzlc8oxx4x msAs0LjR5JVJl uxSluKzgPBI4q 1PbOd84B71a IHdpZHRoPSIxN SUiIHZhbGlnbj 0mpX9jVr2+PGN jdNJ8hGK1oF5q OpRoVgZ5XIrhL 249InRvcCIv Eictf7yvm7bjx Iv0KgXmGRWmyr SygOcpYCT0z5R zIl53U6ToxQez i7LtPpj2xj10v XMao8I7dRA0 N6JcDYZkyasly FIzfTuiDJ2tQT BpbjtwYWRkaW5 lHCQrL5u5UqLp XwW2ZMtuS3Osx cI0MAJmnSGu SKrlFXW7W96ji 1N4MDBdVLOfDE U3oOG6nB8nqNv nbjogbGVmdDsg dmVydGljYWwtY YfwO338WMIg pSxnCRZwcJ4xX WJvdHRvbTogMC 4wNTBpbjsnPlJ PVEhIQUFSLCBL QVRITEVFTiBNP G96II74fRBa u3D4nZE5S5OiL GRpbmctcmlnaH K5RUIeRTOfjC5 0uXWrKIvyEy0k o9E6s669OFZaI CUqfB32Ks3y dDogMTBwdCBUa J2eyhctr6bdbv ogIzAwMDAwMDt 7LNu4IJJazByb WuLqTBY3EbU8W DO2vYRxcM8w nPhtyzakyP3jP yc+MDQvMDgvMT r4FfpyuWR+PHR rDDR7fYgyCYck DRJtaJ4iECYqT 9r7LwMvDoX2 CYziH7ViLHHsm wfdGg49jG5dQk HiWgF7NYgvP8V gfnD1OXKghKLp CSpbETA8Q88fw 7H8ZIMtUUOa TYJ5yHZ8tB8ks GlnbjogbGVmdD sgdmVydGljYWw yUYglR991CABa cOdnAvW0JChyD YDxRC39HE62 hWCme0R1qIG5N 3BhZGRpbmctcm pilDZ0PDMoQUG ckH24yVXtMDks Eg6ra6M7v537C BZwUYRpcX29 Xg5ikWwoSOMbp DFUsX8orsmla8 xvcjogIzAwMDA jXYa4DFr0VKTo aPnpCdApGBY8Y kK7ZYP3cZFj pY0siBqupzswj G9wOyc+RmVtYW bnIZ33MU39zTY yx3N4uOX0M1Cq ZGRpbmctcmlna JO6DSRcQNOk xA63gKXjDFloE n4rb0N8t311TI KlGDStxZ73Os5 udDogMTBwdCBU bX8yrvkiu2pja jogIzAwMDAw ZMx7MNy2YDYme AhcAwDlAUG7Lh D5PCZ6mLNrhE3 eePiexdtepL1k Oyc+F8C4vPJ2x WVudDwvdGQ+ RK31gk27S7MeJ fqzWix7DBBpKF E5oVQ4bL8wGJW aVUcfe9I1hWK6 A1DydxTvou3md 2xsYXBzZTog R57wxMPio6K3W QXvfBT3SCCkuG zpRgQhfG17Cqv +ZEWydLylb1Cr Xpxcy0oov6jum Xd8CuAmMVNu ruDqoVthEJI7y 7FcGe76A78wYG dpZHRoPSIzMCU tANKbhGecpa0p uZ3iUv1+PGNvb ER0vGA6wT0x EpByNxH9XEfaK 249InRvcCIvPj wxd1vat8kbzLm 9IjIwJSIgdmFs fXxqZQJ7b0RyH c19F7NldZvi u4RiOao3mi29x CPrl5B4qEX7E9 BhZGRpbmctbGV wkUuvDD7nIXJp ldoiGYTenG1vD CNhB0g4SnUa ObY5UIupP2Bwg uN0BBLkjRMrPH DayAUWyD4rcoz pm2jqwxytIxLo GYHoZVk3HXl2D WFsaWduOiBs PJJ4HhF0MQB7n JXybC8gkCjuqd blfI7aEmu+UGh 3u4slbRLnPP3b bKS0KZ75ZK74g TFvs3V4sPC8 N0GzFVRpooait dufvBS0KZEfAU BfxC59Tk8btVq zXp9jZSBuTWK1 SIPkiNZyV3Mkm B0bKcPqMLWr NNKcW1NfxPRpB MozM039VNciAh W1HLKzbxPaH6R sLWFsaWduOiB0 z8K5Uf9KDR36Q Z36AH01kGNx p4G1jYO3D4QbZ GRpbmctcmlnaH S8JQJqTKDhnC6 5Qv0faOsiYf0g DIPpDTF0MIFmd DXbA3AovH0v OiAjMDAwMDAwO 7VcdWMpBRiqG6 78AAxoZhJ8HEY ojiBzA1PvABNl lGkbOyM3j2T9D r3KKm59KS06 VH30qAJzz8U3x JW3O9VmWGUwut triutvvYE2PYL eNSPtfY53Oy5d lQctSz8yOMRqE GB7KJObhVRs J1YosA7mPvIyX EQuTOFiL5KulA XkXSvjZ574LWi hRbQ7CYRpaxDz G9EzTVCplYyxN sD5t7U0Pz2Y MPyhaoq3L1DwT jwvdHI+PC90YW XlAZ71dIAfgFF ym1gnfAf5BpPk OMUiMJX8mFasG Xilw0OwDUDd Y29s (more content not included)... Normal [facility] CHEMISTRYOrdered By: SYSTEM SYSTEM on 06-09-2022 [...] 29.2 pg Normal 27.0 - 34.0 pg [facility] HemeAutoSS MCHC (RBC) [Mass/Vol] 32.0 g/dL Normal 31.4 - 36.0 gm/dL FT HemeAutoSS MCV (RBC) [Entitic vol] 91.1 fL Normal 80.0 - 100.0 fL FT HemeAutoSS Platelet mean volume (Bld) [Entitic vol] 10.3 fL Normal 6.4 - 10.8 fL [facility] HemeAut oSS Platelets (Bld) [#/Vol] 219.0 E9/L Normal 150. 0 - 500.0 E9/L FT HemeAutoSS RBC (Bld) [#/Vol] 4.7 E12/L Normal 4.3 - 5.9 E12/L [facility] HemeAutoSS WBC corrected for nucl RBC Auto (Bld) [#/Vol] 5.7 E9/L Normal 4.0 - 11.0 E9/L [facility] HemeAutoSS Encounters Encounter Date Encounter Type Care Provider Facility Start: 09-18-2023 End: 09-18-2023 ambulatory PAOLA A DONNAMILLER Not Available Start: 08-21-2023 End: 08-21-2023 ambulatory PAOLA A DONNAMILLER Not Available Start: 07-11-2023 End: 07-11-2023 Patient encounter procedure Jonnathan Miranda [facility] Start: 06-09-2022 End: 06-09-2022 Patient encounter procedure Jonnathan Miranda [facility] Start: 05-10-2022 End: 05-10-2022 Lab Drop off Jonnathan Miranda [facility] Procedures Date Procedure Procedure Detail Performing Clinician Start: 12-25-2014 left needle-localize d ultrasound-guided left breast biopsy times two Jonnathan Miranda Start: 07-02-2001 Diagnostic laparoscopy Jonnathan Miranda Comment on above: 2001 Start: 07-02-1999 section Jonnathan Miranda Breast biopsy and re lated procedures Jonnathan Miranda Comment on above: multiple both breast s Endometrial ablation Jonnathan encarnacion Excisional biopsy of breast Jonnathan Miranda Comment on above: left; 12/2003, 10/2006 Hernia repair Jonnathan Miranda Comment on above: pedriatric, right Immunizations Immunization Date Immunization Notes Care Provider Fa cility 03-23-2022 influenza virus vaccine, unspecified formulation Jonnathan Miranda [facility] Comment on above: Result Comment: R melva m - Lot#[id number] - Exp 12/18/2022 04-29-2021 influenza virus vaccine, unspecified formulation Jonnathan Miranda [facility] 04-01-2021 influenza virus vaccine, unspecified formulation Jonnathan Miranda [facility] 05-16-2020 zoster vaccine, live Jonnathan encarnacion [facility] 02-23-2020 zoster vaccine, live Jonnathan encarnacion [facility] 02-20-2020 influenza virus vaccine, unspecified formulation Jonnathan Miranda [facility] Payers Date Payer Category Payer Unknown [id number] 1965 Unknown [id number] 1965 Unknown [id number] Social History Date Type Detail Facility Start: 08-24-2021 Tobacco smoking status Never s moked tobacco (finding) [facility] Tobacco smoking status Never Nayane [facility] Sex Assigned At Female [facility] Evaluation + Plan note Radiology Note Date & Type Note Facility Evaluation + Plan note Future Appointments Appointment Date:06/19/2022 03:00:00 PM Scheduled Provider: Location:FT.BD Appointment Type:BD Bone Density (FT) Appointment Date:06/19/2022 03:30:00 PM Scheduled Provider: Location:FT.MAMMOGRAM Appointment Type:MA Screen (FT) Future Scheduled TestsBD Bone Density DEXA 06/19/22MA Mamm Screen w/CAD if perf and 3D Yosi 06/19/22 [facility] Hospital course Narrative Note Date & Type Note Facility Hospital course Narrative No data available for this section [facility] Hospital Discharge instructions Note Date & Type Note [facility] Hospital Discharge instructions No data available for this section [facility] Progress note Note Date & Type Note [facility] Progress note No data available for this section [facility] Summary Purpose Family History No Family History Records Found No data available for this section No Family History Records Found Advance Directives No Advanced Directives Records FoundNo Advanced Directives Records Found Additional Source Comments Patient Care team informatio n (unrecognized section and content) Personnel Name: Paola ALEXANDER CNP Address: Address: [address] [place] [address]- Personnel Name: Paola ALEXANDER CNP Address: Address: [address] [place] [address]- Personnel Name: Paola ALEXANDER CNP Address: Address: [address] [place] [address]- INFORMATION SOURCE (unrecogn ized section and content) DATE CREATED AUTHOR 06/10/2023 [facility] DATE CREATED AUTHOR AUTHOR'S ORGANIZ ATION 09/19/2023 [facility] EPIC FOR RECORDS PERTAINING TO [...] BE BASED ON THE PRIMARY CLINICAL RECORDS. [facility]. provides no warranty or guarantee of the accuracy or completeness of information in this document.
== END 2023-12-19 14:22 | disposition home or self-care (01) ==
LOC: VC 14:21
PROVIDERS: PCP Radiology Diagnostic Radiology; Visit Provider Radiology Diagnostic Radiology
DX: I80.02 Phlebitis and thrombophlebitis of superficial vessels of left lower extremity (principal)
CPT/HCPCS: 93971; G0463

== ENCOUNTER 2023-12-31 12:50 | Outpatient (OUT) | payer OTHER, SELFPAY ==
--- NOTE | 2023-12-31 12:52 | VEIN_ITS ---
[address] [address] Patient Name: ANUPAMA CARDOSO MRN: [id number] date: 1965 Sex: F Assigned Patient Location: Current Patient Location: Accession/Order Number: [id number] Exam Date: 12/31/2023 12:52 Report Date: 12/31/2023 14:44 At the request of: FRANCES LEWIS Procedure: VC Endovenous Ablation 1VeinRT EXAMINATION: VC Endovenous Ablation 1VeinRT HISTORY: Pain due to varicose veins of bilateral legs I83.813 The risks and benefits of the procedure had been previously discussed, and were rediscussed at length. Informed written consent was obtained. Aliya Horne RDMS and Roma Arevalo RDMS, RVCayla assisted. Time out procedure was performed. The right lower extremity was prepared and draped in the usual sterile fashion to allow knee flexion in the sterile field. Duplex ultrasound probe was draped in a sterile cover, sterile transmission gel was used. Venous mapping was performed with the areas of dilation and large tributaries marked. The total length was 24 cm from the entry 3 cm above the ankle to 3 cm below the Saphenopopliteal junction. The diameter of the right small saphenous vein ranged from 6.3 mm. A 30 gauge needle and 1% buffered lidocaine was used to anesthetize the entry site. A 4 mm incision was made with a scalpel and the saphenous vein was entered percutaneously under direct ultrasound guidance with a micropuncture set, a single stick was successful in gaining access. A micro-guide wire was inserted and the needle removed. A micro-set including a dilator was inserted over the microwire and the needle and dilator were removed. A guide wire was inserted through the micro-set and guided through the saphenous vein to the saphenofemoral junction. The dilator was removed and an introducer sheath was inserted over the wire until the end of the sheath entered the saphenofemoral junction. The dilator and wire were removed and the 600 micron fiber was introduced and placed and positioned so that it extended beyond the sheath and was 3 cm distal to the saphenofemoral or saphenopopliteal junction. Final position of the fiber was determined by ultrasound guidance and duplex imaging. Rhondacent anesthetic was delivered by ultrasound guidance. 100 cc of fluid was delivered along the entire course of the saphenous vein. The solution consisted of 1000 cc of normal saline with 40 mL of 1% lidocaine and 20 mL of sodium bicarbonate. A final positioning check was made. The energy source was turned on by means of the foot pedal and the fiber and sheath were withdrawn. The total number of Joules delivered was 1147. The laser was active for 143 seconds under continuous pulse, average laser use of 8 J. Laser start time: 1:41 PM Laser stop time: 1:43 PM Date: 12/31/2023. A duplex ultrasound revealed compressibility and flow at the saphenofemoral junction immediately after the procedure. Hemostasis at the access site was achieved. The skin incision of the saphenous vein was closed with a 4 x 4. A compression stocking was applied. Postop instructions were given. A follow up appointment was recommended and scheduled. The patient tolerated the procedure well. Electronically authenticated by: JOSE FISHER Date: 12/31/2023 14:44
--- OUTSIDE RECORDS SUMMARY | 2023-12-31 13:09 | XMS_ITS | CCD ---
Author Organization [facility] Care Team Providers Care Automation Specialist Name Role Phone Paola ALEXANDER Primary Care Physician PAOLA ALEXANDER Attending Unavailab PAOLA Burden Attending [...] 24hrs, # 18 tab(s), Refills(s) 1, Pharmacy: [facility]-[address], 170, cm, 08/24/21 14:04:00 [...] Chem Physician Orderon 06-07-2023 Physician Order [id number] Normal [facility] Coding Summary.on 06-15-2022 Coding Summary. [id number] +PGhlYWQ+PE1F JMItC52hbYJjb P4YK4sAQH8UNI DIFKQSEU0KUE5 awCM6EKizH5Tk biAv WujrdDNmOQ86G Xi7BFD3nPcuHH sbbC7diUCtX0w 9MdVuHM01sP67 AYftQVDeGaH1P jZpbjsgbWFy Z0pkWjYsnPQmA yc+PHRhYmxlIH dpZHRoPScxMDA lJrRsbKflNV2j Kr1zSOVlTMWug GxhcHNlOiBj l1saNJAtZNpdN P2suUssT4UpeI Q2WWPyo2b6Xp6 8dHI+PHRkIHN0 gGohIGowf961D yIkf7raRHG4 pGQhWVmgGVY5O 18qp1J7XCRvEI UkBOS4qAO8cF8 owRvigrhsG7Bo kTDbKkQ5LSM3c LVfsZ5dmDwp fwshgY9uBjr+Q 79GOP7NXDLUHN 7QFsu0W6YqLnp vdHI+RR63LUFd HK71vPNaoYBkp 1fbeRy9NmEe HEVwSEK3mDplP Gbkq6JeDIQyT7 7jaXQsu6J4USY vbGxhcHNlOyBl yCH3tH8uHYqds msra3eyohtd Ohdii5arzu36j F17H20zDGhyUK DbCUK9JNMfOGP yxBqltv4trD7n Ii8+QThoe0kpy 7goyUi4KvUo JSIgdmFsaWduP MG2c7SqSc96W7 PuvMqaa1EgSuk 1kz89zBDnx3G9 lIX1SHstGXHst I9eAJapYhC3 CAXuGbTwiD21g PCmFUwzFg1njU aijGtoYR0gNLI impkcMIUluW0l LWJvdHRvbTogM Y1pRLOssfxo d583UhTjPNL6G QViiCTdB1UsbH 9yOiAjMDAwMDA dZ0HruUVjQOnp J017UCleGkN1V OBjevRxE0Wz NBOoaDwtRiT4l 0U7Pa9Yv6Vspy wfOZF4IOxyXOR aPdI9FrAmHiV0 X5HoScx4JEDbt ZwxQN6kN8Jr ZGRpbmctcmlna WO9ORVmLPHavK 03iZJsIBsiNu8 kf2C5w893PJYj CBNbfB04Ly5fp DogMTBwdCBU mW3nlxdus2kin jogIzAwMDAwMD p9DOy1BPBomVx hOyPvJCG3ZdQ3 DHE1vLYqjK5mx GmdvoracK2p Oyc+K54pdX1sD DZ2FUJ4yzpkVI EmceSjGB58CW0 2H4EnIzyxlJHc bGU+PGRpdiBzd NdxQV6lOnRb k6nbl1KkYMxhV 2RkZGRkZDsnPj w1HTLyOTU9jWA 3vC3yILRmYNan i5I6pPT9O3Mic pIpjt7ej7dv LVXuVJqkP71oi IVgx4K4RINnuD X1YUIsnUzvSjC yoJ07Knh+PGNv kZjxh9WkZftou 2jcd9zgaFr1 IjMwJSIgdmFsa GiwKBP8c9PbFu 92D70aPKleNML oPSIxNSUiIHZh rDdowq4rnV5wI i8+PGNvbCB3 gMN4nO7eKCQrW tU0WVndP321Qm PhpSLvWtgdk5i oy7extEf3NnRc JSIgdmFsaWduP QG4r0VmEq67 X83rXHprUMZpC SIyMCUiIHZhbG vvlu7msG3pXt9 +QD1og6uufd38 sI27iHY+PHRkI BN1gOucSDdf AWHwfZ2cQGzkU oY7AMNwGuYsdL 92dZAnTEuyVm7 poQzgbErxLY4b PFAcsodmj029R qOle2pkQYMx kJAmPLolDWQ6Y 57lv4A7UYCpLP QxJVT5pJJ5bG5 hbGlnbjogbGVm dDsgdmVydGljY LeuENbwL143 IHRvcDsnPlBhd GllbnQgTmFtZT s6W7LcUmq1RZT boUbfPT0ojPBf FHbcSe6hcXtds FmiFW1vGHCo zsqnk347NhYih 2xkIDEwcHQgVG ehHQE1S58vh7H 3WFDiAJXdCIO4 bHW1hX6mnQcso jogbGVmdDsg dmVydGljYWwtY BfiZ733NBUzyU snPkJpcnRoIER byJL1BX42PP85 sKYqg6U1jOF7N 3BhZGRpbmct skjfgMD8DWJzY BMdpO87Tb9vtT qeHj2kHROcZLE 7AIOwvJIhK7Mz iE3lUqGuAVPqP MXhJ5DdsPGb LDaqX088DIvxW qF3VZEvagMoS6 FsLWFsaWduOiB 3i3M9Tk2UA5G9 JA47RS12zDBjm 1Z5hAC9I5Ui ZGRpbmctcmlna RU9VXKmKNYqeA 64Xy3gwKxlQc1 oPORnZOM5RRYf uEYxK1IqfJ9cZ iAjMDAwMDAw W6MfhASbEEvfK 182EQjcFaX0XE SmxgGwY0CiZAC mjCxxFnK7i4U4 Ov1PPJq9JA55R W49bNCrl9W5 qMT2S1DoZSBad yzsphojxQQ1AX WvIJNuiF95Ce1 srEgaFa7fUEFw UXT9JPDhkVEzR 7MhvC4nEeAw IVLzQDIoK0Mpy XOwQCrxI807JH guLyS0PRQhhyG cM2EkGMImkQub GbG6t0H2Oi8RM XYhUY48DZO0 vSW1IX21WH10R 3RyPjwvdGFibG U+PHRhYmxlIHd pZHRoPScxMDAl HqNhbHglWH0rV m4oTOYpQSYr bGxhcHNlOiBjb 2xsYXBzZTsgZW 1eyYjxI9HulWF 3EEWtu0y1Tr64 B56jU3DofBF+P PJqmNM0oDC7 oM6cLdPiPxA1W MkyW888FyFnvR ZkHwskz7ygi9r agAk0NkX5GTEc yoEjsHrqLDI1i 4PmTi59K93r IHdpZHRoPSIxN SUiIHZhbGlnbj 8ppK2qVt9+PGN xfES0gXZ3lI8f WpSwVvV8XVlnJ 249InRvcCIv Vdqap9muo7vpg Cf5LbIyQHUkmh SpuTvfNFW7l0N hSj85S7IldDjy u1ZiIik0ga75j CCnk1F0vQF6 Z4TfUNRfdutej HFzfLwtCG7qGG BpbjtwYWRkaW5 wPDVhW9n9UsPi IqW5YPtkZ3Mhw oW1NWTopEGu VWdxGWX9C16pi 7T4CPYvKQEmHE W7yTK4qC8idRy nbjogbGVmdDsg dmVydGljYWwtY AzvH905IWZi cLpuFSKbjL3cI WJvdHRvbTogMC 4wNTBpbjsnPlJ PVEhIQUFSLCBL QVRITEVFTiBNP H20AB20vYHk i9V3dBE6T6PmZ GRpbmctcmlnaH B3RGChOVGcmX0 3cXHzXRkvXe6r g9M6t594BLUcI SEsaO39Qj1o dDogMTBwdCBUa G5rhaanq8ukiu ogIzAwMDAwMDt 9PKu6AVMvcHvr RwUbRCS0HhV5J DZ7oMLvvX6v bXhfiwfdtS4bP yc+MDQvMDgvMT r0IhtopIB+PHR pZFO7kAryGKcd TVSbwF5mWCJsP 0u0HsNsZzJ8 GOewE9CeFWKqh mtnMt62oI6wRu NhDoF0OBcfL7T hryU9ZFCpaJJz GBskZKF7L00mc 0U8WVDzUBZa HHG2uXY2bB2xp GlnbjogbGVmdD sgdmVydGljYWw vSQlyS928NDTi gWdlVxL9SLofP VWnKL02LP80 tWHat3G1gXN7B 3BhZGRpbmctcm sclAW7YLCaVXI soZ15pYGlIZpp Hc6xn1C3v358V DPsCUDvyR01 Sp4jbBheHNWqz BKNeA1qcgzwj9 xvcjogIzAwMDA vYZo5USh9GWKs oIlmJmTbXAL8V bX9XMF5zGZf aT7yzEzyvfosn G9wOyc+RmVtYW vqQB46QH07iQQ ej7E2nXH9I0Nu ZGRpbmctcmlna XO6UZUiHPUt jI10dSMfNQzpC b9nk6C6r029GI TnGYFewR08Ti6 udDogMTBwdCBU fW0xbupio1bxp jogIzAwMDAw EVx0UGp1EANwo JsjGcJoXYQ5Pz E2CLB5wLZacT7 ldFlaxafngB5e Oyc+X6A7aJM2d WVudDwvdGQ+ RB58oq49I9ViM likExx6HUWuCQ J8nZP9pC5lESN hHIuup9V7sTD7 H2JxomNhsb1gf 2xsYXBzZTog K68tcQVlm8Q3F PJcsYG9OPZkaG xyBhNcqB41Cxj +QPZyfUczo2Hn Jswmr3mjk1ahd Yb4NfEeXUPq ebOjtUhzSPX4e 4GtNi36W01tBM dpZHRoPSIzMCU kMPLpjMmdyo5y wH7eAl9+PGNvb BZ8jIY5mU1w TsYqNeQ2HOtyH 249InRvcCIvPj hbg1jjd7odoIg 9IjIwJSIgdmFs hSrvGTP0h4GxR s93N4HjkPyu k0GvRpz8ww15h BJwu1R2qPM9B9 BhZGRpbmctbGV lpGhpGB9uRGHl mxhsFYInpH6rR UTdF3m9IdJr GaE9BBzfC1Vzk oY8IVWfrONdRI VofSYFrE9hywo yx9ulhvrsDkQj GPYdQOt7ZNt5D WFsaWduOiBs LWV8CuS7LUY4z ZMvjX4ubLqkhk mplD7gCkv+UGh 6e5kdrSDuTC0j dXK8XO80IT76i UVkk5G9aWW4 A5DbMIYmqcdqf deorMU5DXEcHU DmqT50Pq3wbXo oCo2sTJFvRJM8 PBLmtWTjW2Kzt R0yWhQhVREh DYBfM1PljCEoO RzzY638JKubIx C5NOGgxjQoG1T sLWFsaWduOiB0 v2D5Hu1NIN06F D06CH20bDLi t4L3xQL2R4EoT GRpbmctcmlnaH C3QVBhNJIreV6 1Ko8qvVcwKl5j RIPnBFT2WOLji QZoU3UfwJ7p OiAjMDAwMDAwO 8NeeYNyOKczW8 06OHalDeT8VKZ bfoBsP7UmBRYe ySzwQhM4p7A8U c7BGn80CO85 JO55bIJqm8T0g UL8A9WmUCGsbh looxypyIE5MIT tHVDgsI70Ry4e rIbeDc5jPENuN GX8TIVdySJn U0MugF1uHuMsZ JFbUYUfH8OrbO XcTNvsH769HZg kJmI5KDRbqaQb C3UnHHKiyNuiT aO7a0N3We2M GUtxpqn0Z3MiZ jwvdHI+PC90YW RmDU08rSHeaMX td7cflDz0WbZl EASnVUL6hOhlA Sfdf2LdATEx Y29s (more content not included)... Normal [facility] CHEMISTRYOrdered By: SYSTEM SYSTEM on 06-09-2022 25-hydroxyvitamin [...] 29.2 pg Normal 27.0 - 34.0 pg [facility] HemeAutoSS MCHC (RBC) [Mass/Vol] 32.0 g/dL Normal 31.4 - 36.0 gm/dL FT HemeAutoSS MCV (RBC) [Entitic vol] 91.1 fL Normal 80.0 - 100.0 fL FT HemeAutoSS Platelet mean volume (Bld) [Entitic vol] 10.3 fL Normal 6.4 - 10.8 fL [facility] HemeAut oSS Platelets (Bld) [#/Vol] 219.0 E9/L Normal 150. 0 - 500.0 E9/L FT HemeAutoSS RBC (Bld) [#/Vol] 4.7 E12/L Normal 4.3 - 5.9 E12/L [facility] HemeAutoSS WBC corrected for nucl RBC Auto (Bld) [#/Vol] 5.7 E9/L Normal 4.0 - 11.0 E9/L [facility] HemeAutoSS Encounters Encounter Date Encounter Type Care Provider Facility Start: 09-18-2023 End: 09-18-2023 ambulatory PAOLA A DONNAMILLER Not Available Start: 08-21-2023 End: 08-21-2023 ambulatory PAOLA A DONNAMILLER Not Available Start: 07-11-2023 End: 07-11-2023 Patient encounter procedure Jonnathan Miranda [facility] Start: 06-09-2022 End: 06-09-2022 Patient encounter procedure Jonnathan Miranda [facility] Start: 05-10-2022 End: 05-10-2022 Lab Drop off Jonnathan Miranda [facility] Procedures Date Procedure Procedure Detail Performing Clinician [...] influenza virus vaccine, unspecified formulation Jonnathan Miranda [facility] Comment on above: Result Comment: R melva m - Lot#[id number] - Exp 12/18/2022 04-29-2021 influenza virus vaccine, unspecified formulation Jonnathan Miranda [facility] 04-01-2021 influenza virus vaccine, unspecified formulation Jonnathan Miranda [facility] 05-16-2020 zoster vaccine, live Jonnathan encarnacion [facility] 02-23-2020 zoster vaccine, live Jonnathan encarnacion [facility] 02-20-2020 influenza virus vaccine, unspecified formulation Jonnathan Miranda [facility] Payers Date Payer Category Payer Unknown [id number] 1965 Unknown [id number] 1965 Unknown [id number] Social History Date Type Detail Facility Start: 08-24-2021 Tobacco smoking status Never s moked tobacco (finding) [facility] Tobacco smoking status Never [facility] Sex Assigned At Female [facility] Evaluation + Plan note Radiology Note Date & Type Note Facility Evaluation + Plan note Future Appointments Appointment Date:06/19/2022 03:00:00 PM Scheduled Provider: Location:FT.BD Appointment Type:BD Bone Density (FT) Appointment Date:06/19/2022 03:30:00 PM Scheduled Provider: Location:FT.MAMMOGRAM Appointment Type:MA Screen (FT) Future Scheduled TestsBD Bone Density DEXA 06/19/22MA Mamm Screen w/CAD if perf and 3D Yosi 06/19/22 [facility] Hospital course Narrative Note Date & Type Note Facility Hospital course Narrative No data available for this section [facility] Hospital Discharge instructions Note Date & Type Note [facility] Hospital Discharge instructions No data available for this section [facility] Progress note Note Date & Type Note [facility] Progress note No data available for this section [facility] Summary Purpose Family History No Family History Records Found No data available for this section No Family History Records Found Advance Directives No Advanced Directives Records FoundNo Advanced Directives Records Found Additional Source Comments Patient Care team informatio n (unrecognized section and content) Personnel Name: Paola ALEXANDER CNP Address: Address: [place] [address]- Personnel Name: Paola ALEXANDER CNP Address: Address: [place] [address]- Personnel Name: Paola ALEXANDER CNP Address: Address: [place] [address]- INFORMATION SOURCE (unrecogn ized section and content) DATE CREATED AUTHOR 06/10/2023 [facility] DATE CREATED AUTHOR AUTHOR'S ORGANIZ ATION 09/19/2023 [facility] EPIC FOR RECORDS PERTAINING [...] BE BASED ON THE PRIMARY CLINICAL RECORDS. [facility]. provides no warranty or guarantee of the accuracy or completeness of information in this document.
[2023-12-31] MEDS: LIDOCAINE HCL 1% 100 MG/10 ML MDV INJ (13:13)
[2023-12-31] MEDS: 0.9 % SODIUM CHLORIDE 500 ML, LIDOCAINE HCL 20 ML, SODIUM BICARBONATE 10 MEQ INJ (13:13)
[2023-12-31 15:09] VITALS: BP 104/74; PULSE 82; BMI 28.2
--- NOTE | 2023-12-31 15:09 | VEINCLINIC_ITS ---
Vital Signs 12/31/23 15:09 Height 5 ft 7 in Weight 81.647 kg BMI 28.2 BP 104/74 BP Location Left Brachial BP Position Sitting BP Cuff Size Adult BP Source Manual Cuff Respiration 18 Pulse 82 Varicose Veins Heriberto Miller MD personally performed the services described in this documentation, as scribed by Roma Arevalo RVT, RDMS in my presence and it is both accurate and complete. Roma Miller RVT, RDMS, am scribing for, and in the presence of, Dr. Heriberto Barnes and in the presence of the patient. medial thigh: bilateral, knee: bilateral, calf: bilateral, ankle: bilateral and nunes: bilateral sharp, intermittent and tender 6 15+ years Worsened in recent months: Yes standing and sitting bed rest, elevating extremities, compression stockings and other Reports edema, leg edema and other History of lower extremity trauma: No Superficial thrombophlebitis: No Family history of varicose veins: yes Has patient had previous lower extremity venous surgery: No Patient has previously received the following treatment(s) for lower extremity varicose veins: Reports sclerotherapy Does patient have a history of : yes Does patient intend to have future pregnancies: no Has patient had lower extremity venous scan with relux testing: Yes Support hose used: Yes (15+ years) Problems walking or doing physical activity: No How does it affect you: prolonged sitting required for work Do you walk much: Yes Do you stand much: Yes Medication compliance: good Large amounts of Vitamin K: No Review of Systems ROS Narrative Heriberto Miller MD personally performed the services described in this documentation, as scribed by Roma Arevalo RVT, RDMS in my presence and it is both accurate and complete. Roma Miller RVT, RDMS, am scribing for, and in the presence of, Dr. Heriberto Barnes and in the presence of the patient. Status of ROS 10 or more systems reviewed and unremark able except as noted in history and below Cardiovascular Reports: edema, swelling of feet/ankles and leg pain with exertion Musculoskeletal Reports: extremity pain, extremity swelling and muscle cramps Integumentary/Breast Reports: itching, skin pain, skin tenderness, skin swelling and changes in skin color [facility] Medical History (Updated 12/31/23 @ 15:21 by Roma Arevalo) Parity 3 ?Z87.898 - Personal history of other specified conditions (ICD-10) 4 Onychomycosis ?B35.1 - Tinea unguium (ICD-10) Hypothyroidism ?E03.9 - Hypothyroidism, unspecified (ICD-10) Depression ?F32.A - Depression, unspecified (ICD-10) Varicose veins of bilateral lower extremities with pain ?I83.813 - Varicose veins of bilateral lower extremities with pain (ICD-10) Migraine ?G43.909 - Migraine, unspecified, not intractable, without status migrainosus (ICD-10) Telangiectasia ?I78.1 - Nevus, non-neoplastic (ICD-10) Surgical History (Updated 12/31/23 @ 15:28 by Roma Arevalo) Status post laser ablation of incompetent vein ?Z98.890 - Other specified postprocedural states (ICD-10) S/P sclerotherapy of varicose veins ?Z98.890 - Other specified postprocedural states (ICD-10) ?Z86.79 - Personal history of other diseases of the circulatory system (ICD- 10) History of laparoscopy-assisted vaginal hysterectomy ?Z90.710 - Acquired absence of both cervix and uterus (ICD-10) Previous section ?Z98.891 - History of uterine scar from previous surgery (ICD-10) Family History (Updated 12/31/23 @ 15:22 by Roma Arevalo) Father Family history of cancer Family history of hypertension Mother Family history of hypertension Varicose veins of bilateral lower extremities with pain Social History (Updated 12/31/23 @ 15:22 by Roma Arevalo) Within the past year, how often did you have a drink containing alcohol: 2-4 times a month Smoking status: Never smoker Non-prescribed substance use: denies use Meds Home Medications and Allergies Home Medications ?Medication ?Instructions ?Recorded ?Confirmed ?Type albuterol 90 mcg-budesonide 80 2 inh inhalation DAILY PRN 12/31/23 12/31/23 History mcg/actuation HFA aerosol inhaler shortness of breath (Airsupra) amoxicillin 875 mg-potassium 1 tab PO BID 12/31/23 12/31/23 History clavulanate 125 mg tablet atogepant 60 mg tablet (Qulipta) 60 mg PO DAILY 12/31/23 12/31/23 History fluoxetine 20 mg capsule 20 mg PO DAILY 12/31/23 12/31/23 History levothyroxine 75 mcg tablet 75 mcg PO DAILY 12/31/23 12/31/23 History (Euthyrox) rizatriptan 10 mg tablet (Maxalt) See Rx Instructions PO .COMPLEX 12/31/23 12/31/23 History terbinafine HCl 250 mg tablet 250 mg PO DAILY 12/31/23 12/31/23 History ubrogepant 100 mg tablet (Ubrelvy) mg 12/31/23 History Allergies Allergy/AdvReac Type Severity Reaction Status Date / Time No Known Drug Allergies Allergy Verified 10/19/23 15:25 Exam Narrative Exam Narrative: IHeriberto MD personally performed the services described in this documentation, as scribed by Roma Arevalo RVT, RDMS in my presence and it is both accurate and complete. I, Roma Arevalo RVT, RDMS, am scribing for, and in the presence of, Dr. Heriberto Barnes and in the presence of the patient. Constitutional Documenting provider has reviewed patient's vital signs: yes Common normals: oriented x3 Lymph Lymphatic: no lymphedema noted Cardio Common normals: regular rate Rate: regular rate Peripheral pulses: posterior tibial pulses present and dorsalis pedis pulses present Extremity Common normals: normal capillary refill General: calf tenderness and edema Right lower extremity: upper leg and lower leg Left lower extremity: upper leg and lower leg Neuro Common normals: oriented x3 Assessment and Plan Assessment and Plan (1) Status post laser ablation of incompetent vein: Plan Plan of care: Risks and benefits of the procedure were discussed at length and informed w ritten consent was obtained.? Time-out completed for verification of correct patient, procedure and site.? Staff present during time-out: ? Heriberto Barnes MD, Roma Arevalo RDMS, RVT and Aliya Menendez RDMS Time Out Time___1331____ Patient prepped and procedure performed in usual sterile fashion. Risk of injury related to use of Diode laser and/or laser devices? __ME___ ? Serial number of laser used :? [id number] Control panel self test performed, electrical cords in good condition, floor is dry, basin of water available, fire extinguisher in close proximity_EM__ Polycarbonate goggles available and Laser warning signs outside of doors___ME___ Eye protection provided to patient and staff in room_ME___ Use of laser retardant drapes and dull blackened instruments as directed__ME___ Use of nonflammable prep solutions and use of saline soaked sponges to protect tissues as indicated _ME___ Length ____24____ cm Laser operated by ____Dr. Barnes Physician verbal confirmation laser locked in place__ME__ Laser start time (date and time) 1341____ Laser stop time(date and time) ____1343 Forrester _8.0___ Average laser use __1147 Joules Average laser use__143 seconds Pulse continuous ___ME_? Pulse intermittent ___ Amount of Tumescent used __100____ Evaluated patient for signs and symptoms of electrical injury __ME___ ? Skin clear at insertion site __ME__ Patient tolerated procedure well.? Right leg Coban dressing applied to access site.? Applied Right thigh high leg compression stocking. Will return on 01/07/2024 for Right leg limited venous ultrasound and exam. IHeriberto MD personally performed the services described in this documentation, as scribed by Roma Arevalo RVT, RDMS in my presence and it is both accurate and complete. I, Roma Arevalo RVT, RDMS, am scribing for, and in the presence of, Dr. Heriberto Barnes and in the presence of the patient.
--- NOTE | 2023-12-31 15:32 | P.DS_ITS ---
Discharge Plan Discharge Disposition: Home, Self-Care Outpatient Diagnostics: VC EXT Venous RT LMTD (Routine) Timeframe: 2 Weeks Facility: [facility] - Location: [facility] Center Ordered By: Heriberto Barnes Follow Up Appointments: 01/07/2024 Patient Instructions: Endovenous Ablation (DC) Print Language: Paraguayan Discharge Date/Time: 12/31/23 15:34
== END 2023-12-31 15:34 | disposition home or self-care (01) ==
PROVIDERS: PCP Radiology Diagnostic Radiology; Visit Provider Radiology Diagnostic Radiology
DX: I83.813 Varicose veins of bilateral lower extremities with pain (principal)
CPT/HCPCS: 36478

== ENCOUNTER 2024-01-07 13:53 | Outpatient (OUT) | payer OTHER, SELFPAY ==
--- NOTE | 2024-01-07 13:55 | VEIN_ITS ---
Patient Name: ANUPAMA CARDOSO MR#: [id number] : 1965 Exam Date: 01/07/2024 Ordering Doctor: DR DELBERT ROSA M.D. RADIOLOGY REPORT PROCEDURE: VC EXT VENOUS RT LMTD COMPARISON: VC EXT VENOUS RT LMTD, 11/01/2023. INDICATIONS: Phlebitis of superficial veins of rt lower extremity I80.01 TECHNIQUE: Lower extremity corrales scale and Duplex Doppler evaluation of the deep venous system from the inguinal ligament through the calf veins. FINDINGS: REGION: Right lower extremity. THROMBI: Negative for DVT. Heat induced thrombus in right SSV 1.8cm from SPJ and extends to distal lower leg. COMPRESSIBILITY: Non-compressible segments corresponding to thrombus FLOW: Areas of no flow corresponding to thrombus CONCLUSION: Post ablation occlusion of the right small saphenous vein with heat induced thrombus 1.8 cm from the saphenopopliteal junction Dictated by: Delbert Rosa MD on 01/07/2024 at 14:18 Approved by: Delbert Rosa MD on 01/07/2024 at 14:19
--- NOTE | 2024-01-07 13:55 | VEIN_ITS ---
Patient Name: ANUPAMA CARDOSO MR#: [id number] : 1965 Exam Date: 01/07/2024 Ordering Doctor: DR DELBERT ROSA M.D. RADIOLOGY REPORT PROCEDURE: [facility] EST LMTD VEIN [facility]ENTER - OFFICE VISIT FOLLOW UP COMPARISON: [facility] EST LMTD, 12/19/2023. [facility] EST LMTD, 11/01/2023. PROGRESS NOTES: The patient reports no significant problems following intravenous laser ablation of the right small saphenous vein. The patient did not require oral analgesics. The patient has worn her compression stocking and tried exercise. Physical exam demonstrates no erythema or warmth to suggest cellulitis or thrombophlebitis. no active ulceration. The small saphenous vein cannot be palpated. The incision cannot be visualized. Review of the ultrasound performed the same day demonstrates occlusive thrombus extending throughout the treated right small saphenous vein with heat induced thrombus 1.8 cm from the saphenous popliteal junction. The patient expressed a desire to proceed with treatment of incompetent left small saphenous vein. VEIN/[facility] EST LMTD IMPRESSION: 1. Successful ablation of the right small saphenous vein. 2. Persistent incompetent left small saphenous vein. PLAN: Intravenous laser ablation left small saphenous vein Nurse notes, history and physical were reviewed and confirmed, see attached forms. The nurse was present throughout the physical exam and consultation Dictated by: Delbert Rosa MD on 01/07/2024 at 14:27 Approved by: Delbert Rosa MD on 01/07/2024 at 14:28
[2024-01-07 14:20] VITALS: BP 122/78; PULSE 71; O2SAT 95; BMI 28.2
--- NOTE | 2024-01-07 14:20 | V.VEINS.HP ---
Vital Signs 01/07/24 14:20 Height 5 ft 7 in Weight 81.647 kg BMI 28.2 BP 122/78 BP Location Left Brachial BP Position Sitting BP Cuff Size Adult Respiration 16 Pulse 71 Pulse Oximetry (%) 95 Comment The patient's blood pressure is elevated. Varicose Veins Delbert Miller MD personally performed the services described in this documentation, as scribed by Aliya Menendez RDMS in my presence and it is both accurate and complete. I, Aliya Menendez RDMS, am scribing for, and in the presence of, Dr. Delbert Rosa and in the presence of the patient. medial thigh: bilateral, knee: bilateral, calf: bilateral, ankle: bilateral and nunes: bilateral sharp, intermittent and tender 6 15+ years Worsened in recent months: Yes standing and sitting bed rest, elevating extremities, compression stockings and other Reports edema, leg edema and other History of lower extremity trauma: No Superficial thrombophlebitis: No Family history of varicose veins: yes Has patient had previous lower extremity venous surgery: No Patient has previously received the following treatment(s) for lower extremity varicose veins: Reports vein ablation (Rt GSV, Rt SSV, Lt GSV) and sclerotherapy Does patient have a history of : yes Does patient intend to have future pregnancies: no Has patient had lower extremity venous scan with relux testing: Yes Support hose used: Yes (15+ years) Problems walking or doing physical activity: No How does it affect you: prolonged sitting required for work Do you walk much: Yes Do you stand much: Yes Medication compliance: good Large amounts of Vitamin K: No Review of Systems ROS Narrative Delbert Miller MD personally performed the services described in this documentation, as scribed by Aliya Menendez RDMS in my presence and it is both accurate and complete. Aliya Miller RDMS, am scribing for, and in the presence of, Dr. Delbert Rosa and in the presence of the patient. Status of ROS 10 or more systems reviewed and unremarkable except as noted in history and below Cardiovascular Reports: edema, swelling of feet/ankles and leg pain with exertion Musculoskeletal Reports: extremity pain, extremity swelling and muscle cramps Integumentary/Breast Reports: itching, skin pain, skin tenderness, skin swelling and changes in skin color [facility] Medical History (Updated 12/31/23 @ 15:33 by Roma Arevalo) Phlebitis and thrombophlebitis of superficial vessels of right lower extremity ?I80.01 - Phlebitis and thrombophlebitis of superficial vessels of right lower extremity (ICD-10) Parity 3 ?Z87.898 - Personal history of other specified conditions (ICD-10) 4 Onychomycosis ?B35.1 - Tinea unguium (ICD-10) Hypothyroidism ?E03.9 - Hypothyroidism, unspecified (ICD-10) Depression ?F32.A - Depression, unspecified (ICD-10) Varicose veins of bilateral lower extremities with pain ?I83.813 - Varicose veins of bilateral lower extremities with pain (ICD-10) Migraine ?G43.909 - Migraine, unspecified, not intractable, without status migrainosus (ICD-10) Telangiectasia ?I78.1 - Nevus, non-neoplastic (ICD-10) Surgical History (Updated 12/31/23 @ 15:28 by Roma Arevalo) Status post laser ablation of incompetent vein ?Z98.890 - Other specified postprocedural states (ICD-10) S/P sclerotherapy of varicose veins ?Z98.890 - Other specified postprocedural states (ICD-10) ?Z86.79 - Personal history of other diseases of the circulatory system (ICD-10) History of laparoscopy-assisted vaginal hysterectomy ?Z90.710 - Acquired absence of both cervix and uterus (ICD-10) Previous section ?Z98.891 - History of uterine scar from previous surgery (ICD-10) Family History (Updated 12/31/23 @ 15:22 by Roma Arevalo) Father Family history of cancer Family history of hypertension Mother Family history of hypertension Varicose veins of bilateral lower extremities with pain Social History (Updated 12/31/23 @ 15:22 by Roma Arevalo) Within the past year, how often did you have a drink containing alcohol: 2-4 times a month Smoking status: Never smoker Non-prescribed substance use: denies use Meds Home Medications and Allergies Home Medications ?Medication ?Instructions ?Recorded ?Confirmed ?Type albuterol 90 mcg-budesonide 80 2 inh inhalation DAILY PRN 12/31/23 12/31/23 History mcg/actuation HFA aerosol inhaler shortness of breath (Airsupra) amoxicillin 875 mg-potassium 1 tab PO BID 12/31/23 12/31/23 History clavulanate 125 mg tablet atogepant 60 mg tablet (Qulipta) 60 mg PO DAILY 12/31/23 12/31/23 History fluoxetine 20 mg capsule 20 mg PO DAILY 12/31/23 12/31/23 History levothyroxine 75 mcg tablet 75 mcg PO DAILY 12/31/23 12/31/23 History (Euthyrox) rizatriptan 10 mg tablet (Maxalt) See Rx Instructions PO .COMPLEX 12/31/23 12/31/23 History terbinafine HCl 250 mg tablet 250 mg PO DAILY 12/31/23 12/31/23 History ubrogepant 100 mg tablet (Ubrelvy) mg 12/31/23 History Allergies Allergy/AdvReac Type Severity Reaction Status Date / Time No Known Drug Allergies Allergy Verified 10/19/23 15:25 Exam Narrative Exam Narrative: Delbert Miller MD personally performed the services described in this documentation, as scribed by Aliya Menendez RDMS in my presence and it is both accurate and complete. Aliya Miller RDMS, am scribing for, and in the presence of, Dr. Delbert Rosa and in the presence of the patient. Constitutional Documenting provider has reviewed patient's vital signs: yes Common normals: oriented x3 Lymph Lymphatic: no lymphedema noted Cardio Common normals: regular rate Rate: regular rate Peripheral pulses: posterior tibial pulses present and dorsalis pedis pulses present Extremity Common normals: normal capillary refill General: calf tenderness and edema Right lower extremity: upper leg and lower leg Left lower extremity: upper leg and lower leg Neuro Common normals: oriented x3 Results Imaging Venous US: Radiologist's impression: Heat induced thrombus in right SSV 1.8 cm from SPJ and extends to distal lower leg. Delbert Miller MD personally performed the services described in this documentation, as scribed by Aliya Menendez RDMS in my presence and it is both accurate and complete. Aliya Miller RDMS, am scribing for, and in the presence of, Dr. Delbert Rosa and in the presence of the patient. Assessment and Plan Assessment and Plan (1) Varicose veins of bilateral lower extremities with pain: Plan Patient in today for follow up ultrasound of right lower extremity following EVLT of right SSV completed on 12/31/23. IDelbert MD personally performed the services described in this documentation, as scribed by Aliya Menendez RDMS in my presence and it is both accurate and complete. I, Aliya Menendez RDMS, am scribing for, and in the presence of, Dr. Delbert Roas and in the presence of the patient.
--- NOTE | 2024-01-07 14:31 | W.VEIN ---
Discharge Plan Discharge Disposition: Home, Self-Care Outpatient Diagnostics: [facility] Facility EST LMTD (Routine) Timeframe: 2 Weeks Facility: [facility] - Location: [facility] Center Ordered By: Delbert Rosa VC Endovenous Ablation 1VeinLT (Routine) Timeframe: 2 Weeks Facility: [facility] - Location: Vein Center Ordered By: Delbert Rosa Follow Up Appointments: 01/29/24 EVLT of left SSV Plan of Treatment: Left SSV Allergies: NKDA EVLT Tumescent Anesthesia: 500 mL 0.9% NS with 20 mL 1% Lidocaine and 10 mL 8.4% NAHCO3 Buffered Local Anesthesia: 10 mL of 1% Lidocaine Buffered Print Language: [place] Discharge Date/Time: 01/07/24 14:33
== END 2024-01-07 14:33 | disposition home or self-care (01) ==
PROVIDERS: PCP Radiology Diagnostic Radiology; Visit Provider Radiology Diagnostic Radiology
DX: I80.01 Phlebitis and thrombophlebitis of superficial vessels of right lower extremity (principal)
CPT/HCPCS: 93971; G0463

== ENCOUNTER 2024-01-29 13:59 | Outpatient (OUT) | payer OTHER, SELFPAY ==
--- NOTE | 2024-01-29 07:41 | V.VEINS.HP ---
Vital Signs 01/29/24 07:46 01/29/24 14:05 Height 5 ft 7 in Weight 81.647 kg BP 118/56 BP Location Left Brachial BP Position Sitting BP Cuff Size Adult BP Source Manual Cuff Respiration 16 Pulse 82 Pulse Source Monitor Pulse Oximetry (%) 97 Oxygen Delivery Method Room Air Varicose Veins Patient in this day for EVLT of left small saphenous vein . Delbert Miller MD personally performed the services described in this documentation, as scribed by Rj Mathur RN in my presence and it is both accurate and complete. IRj RN, am scribing for, and in the presence of, Dr. Delbert Rosa and in the presence of the patient. medial thigh: bilateral, knee: bilateral, calf: bilateral, ankle: bilateral and nunes: bilateral sharp, intermittent and tender 6 15+ years Worsened in recent months: Yes standing and sitting bed rest, elevating extremities, compression stockings and other Reports edema, leg edema and other History of lower extremity trauma: No Superficial thrombophlebitis: No Family history of varicose veins: yes Has patient had previous lower extremity venous surgery: No Patient has previously received the following treatment(s) for lower extremity varicose veins: Reports vein ablation (Rt GSV, Rt SSV, Lt GSV) and sclerotherapy Does patient have a history of : yes Does patient intend to have future pregnancies: no Has patient had lower extremity venous scan with relux testing: Yes Support hose used: Yes (15+ years) Problems walking or doing physical activity: No How does it affect you: prolonged sitting required for work Do you walk much: Yes Do you stand much: Yes Medication compliance: good Large amounts of Vitamin K: No Review of Systems ROS Narrative Delbert Miller MD personally performed the services described in this documentation, as scribed by Rj Mathur RN in my presence and it is both accurate and complete. Rj Miller RN, am scribing for, and in the presence of, Dr. Delbert Rosa and in the presence of the patient. Status of ROS 10 or more systems reviewed and unremarkable except as noted in history and below Cardiovascular Reports: edema, swelling of feet/ankles and leg pain with exertion Musculoskeletal Reports: extremity pain, extremity swelling and muscle cramps Integumentary/Breast Reports: itching, skin pain, skin tenderness, skin swelling and changes in skin color PFSH PFS Medical History (Updated 01/29/24 @ 07:47 by Rj Mathur) Phlebitis of superficial vein of left lower extremity ?I80.02 - Phlebitis and thrombophlebitis of superficial vessels of left lower extremity (ICD-10) Phlebitis and thrombophlebitis of superficial vessels of right lower extremity ?I80.01 - Phlebitis and thrombophlebitis of superficial vessels of right lower extremity (ICD-10) Parity 3 ?Z87.898 - Personal history of other specified conditions (ICD-10) 4 Onychomycosis ?B35.1 - Tinea unguium (ICD-10) Hypothyroidism ?E03.9 - Hypothyroidism, unspecified (ICD-10) Depression ?F32.A - Depression, unspecified (ICD-10) Varicose veins of bilateral lower extremities with pain ?I83.813 - Varicose veins of bilateral lower extremities with pain (ICD-10) Migraine ?G43.909 - Migraine, unspecified, not intractable, without status migrainosus (ICD-10) Telangiectasia ?I78.1 - Nevus, non-neoplastic (ICD-10) Surgical History (Updated 12/31/23 @ 15:28 by Roma Arevalo) Status post laser ablation of incompetent vein ?Z98.890 - Other specified postprocedural states (ICD-10) S/P sclerotherapy of varicose veins ?Z98.890 - Other specified postprocedural states (ICD-10) ?Z86.79 - Personal history of other diseases of the circulatory system (ICD-10) History of laparoscopy-assisted vaginal hysterectomy ?Z90.710 - Acquired absence of both cervix and uterus (ICD-10) Previous section ?Z98.891 - History of uterine scar from previous surgery (ICD-10) Family History (Updated 12/31/23 @ 15:22 by Roma Arevalo) Father Family history of cancer Family history of hypertension Mother Family history of hypertension Varicose veins of bilateral lower extremities with pain Social History (Updated 12/31/23 @ 15:22 by Roma Arevalo) Within the past year, how often did you have a drink containing alcohol: 2-4 times a month Smoking status: Never smoker Non-prescribed substance use: denies use Meds Home Medications and Allergies Home Medications ?Medication ?Instructions ?Recorded ?Confirmed ?Type albuterol 90 mcg-budesonide 80 2 inh inhalation DAILY PRN 12/31/23 12/31/23 History mcg/actuation HFA aerosol inhaler shortness of breath (Airsupra) amoxicillin 875 mg-potassium 1 tab PO BID 12/31/23 12/31/23 History clavulanate 125 mg tablet atogepant 60 mg tablet (Qulipta) 60 mg PO DAILY 12/31/23 12/31/23 History fluoxetine 20 mg capsule 20 mg PO DAILY 12/31/23 12/31/23 History levothyroxine 75 mcg tablet 75 mcg PO DAILY 12/31/23 12/31/23 History (Euthyrox) rizatriptan 10 mg tablet (Maxalt) See Rx Instructions PO .COMPLEX 12/31/23 12/31/23 History terbinafine HCl 250 mg tablet 250 mg PO DAILY 12/31/23 12/31/23 History ubrogepant 100 mg tablet (Ubrelvy) mg 12/31/23 History Allergies Allergy/AdvReac Type Severity Reaction Status Date / Time No Known Drug Allergies Allergy Verified 10/19/23 15:25 Exam Narrative Exam Narrative: IDelbert MD personally performed the services described in this documentation, as scribed by Rj Mathur RN in my presence and it is both accurate and complete. IRj RN, am scribing for, and in the presence of, Dr. Delbert Rosa and in the presence of the patient. Constitutional Documenting provider has reviewed patient's vital signs: yes Common normals: oriented x3 Lymph Lymphatic: no lymphedema noted Cardio Common normals: regular rate Rate: regular rate Peripheral pulses: posterior tibial pulses present and dorsalis pedis pulses present Extremity Common normals: normal capillary refill General: calf tenderness and edema Right lower extremity: upper leg and lower leg Left lower extremity: upper leg and lower leg Neuro Common normals: oriented x3 Assessment and Plan Assessment and Plan (1) Varicose veins of bilateral lower extremities with pain: Procedures Procedure Instructions Procedures Plan of care: Risks and benefits of the procedure were discussed at length and informed written consent was obtained.? Time-out completed for verification of correct patient, procedure and site.? Staff present during time-out: Rj Mathur RN,? Delbert Rosa MD, Roma Arevalo RDOH,RVT. Time Out Time_1426__ Patient prepped and procedure performed in usual sterile fashion. Risk of injury related to use of Diode laser and/or laser devices? __CR___ ? Serial number of laser used :? [id number] Control panel self test performed, electrical cords in good condition, floor is dry, basin of water available, fire extinguisher in close proximity_CR__ Polycarbonate goggles available and Laser warning signs outside of doors___CR__ Eye protection provided to patient and staff in room_CR___ Use of laser retardant drapes and dull blackened instruments as directed__CR___ Use of nonflammable prep solutions and use of saline soaked sponges to protect tissues as indicated _CR___ Length _25___ cm Laser operated by __Dr. Barnes Physician verbal confirmation laser locked in place__CR__ Laser start time (date and time) __01/29/2024@_1438 Laser stop time(date and time) __01/29/2024@__1440 Forrester _8.0___ Average laser use __1205 Joules Average laser use__151 seconds Pulse continuous ___CR_? Pulse intermittent ___ Amount of Tumescent used __150cc____ Evaluated patient for signs and symptoms of electrical injury __CR___ ? Skin clear at insertion site __CR___ Patient tolerated procedure well.? Left leg Coban dressing applied to access site.? Applied Left thigh high leg compression stocking. Will return on 02/05/2024 for Left leg limited venous ultrasound and exam. IDelbert MD personally performed the services described in this documentation, as scribed by Rj Mathur RN in my presence and it is both accurate and complete. I, Rj Mathur RN, am scribing for, and in the presence of, Dr. Delbert Rosa and in the presence of the patient.
--- NOTE | 2024-01-29 07:44 | P.DS_ITS ---
Discharge Plan Discharge Disposition: Home, Self-Care Outpatient Diagnostics: [facility] Facility EST LMTD (Routine) Timeframe: 2 Weeks Facility: [facility] - Location: Vein Center Ordered By: Delbert Rosa VC EXT Venous LT Limited (Routine) Timeframe: 2 Weeks Facility: [facility] - Location: Vein Center Ordered By: Delbert Rosa Follow Up Appointments: 02/05/2024 Plan of Treatment: f/u evaluation along with left limited leg u/s Patient Instructions: Endovenous Ablation (DC) Print Language: [place]se Discharge Date/Time: 01/29/24 14:52
[2024-01-29] MEDS: LIDOCAINE HCL 1% 100 MG/10 ML MDV INJ (13:59)
--- NOTE | 2024-01-29 13:59 | VEIN_ITS ---
[address] [address] Patient Name: ANUPAMA CARDOSO MRN: [id number] date: 1965 Sex: F Assigned Patient Location: Current Patient Location: Accession/Order Number: [id number] Exam Date: 01/29/2024 14:01 Report Date: 01/29/2024 15:03 At the request of: FRANCES LEWIS Procedure: VC Endovenous Ablation 1VeinLT EXAMINATION: VC Endovenous Ablation 1Vein left small saphenous vein HISTORY: I83.813 - Varicose veins of bilateral lower extremities w... COMPARISON: No relevant comparison available. TECHNIQUE: The risks and benefits of the procedure had been previously discussed, and were rediscussed at length. Informed written consent was obtained. Carol Arevalo and Rj Mathur assisted. Time out procedure was performed. The left lower extremity was prepared and draped in the usual sterile fashion. Duplex ultrasound probe was draped in a sterile cover, sterile transmission gel was used. Venous mapping was performed with the areas of dilation and large tributaries marked. The total length was 25 cm from the entry 10 cm above the lateral malleolus to when the vein begins to dive towards the popliteal vein. The diameter of the small saphenous vein ranged from 4-6 mm. A 30 gauge needle and 1% buffered lidocaine was used to anesthetize the entry site. A 4 mm incision was made with a scalpel and the saphenous vein was entered percutaneously under direct ultrasound guidance with a micropuncture set, a single stick was successful in gaining access. A micro-guide wire was inserted and the needle removed. A micro-set including a dilator was inserted over the microwire and the needle and dilator were removed. A 0.018 guide wire was inserted through the micro-set and threaded through the saphenous vein to the saphenofemoral junction. The dilator was removed and an introducer sheath was inserted over the wire until the end of the sheath entered the saphenofemoral junction. The dilator and wire were removed and the 600 micron fiber was introduced and placed and positioned so that it extended beyond the sheath and was 3 cm peripheral to the saphenofemoral femoral junction. Final position of the fiber was determined by ultrasound guidance and duplex imaging. Rhondacent anesthetic was delivered by ultrasound guidance. 150 cc of fluid was delivered along the entire course of the saphenous vein. The solution consisted of 1000 cc of normal saline with 40 mL of 1% lidocaine and 20 mL of sodium bicarbonate. A final positioning check was made. The energy source was turned on by means of the foot pedal and the fiber and sheath were withdrawn. The total number of Joules delivered was 1205. The laser was active for 151seconds under continuous pulse, average laser use of 8 J. Laser start time 2:38 PM 01/29/2024 . Laser stop time 2:40 PM 01/29/2024 . A duplex ultrasound revealed compressibility and flow at the saphenofemoral junction immediately after the procedure. Hemostasis at the access site was achieved. The skin incision of the saphenous vein was closed with a 4 x 4. A compression stocking was applied. Postop instructions were given. A follow up appointment was recommended and scheduled. The patient tolerated the procedure well and was discharged in good condition . VEIN/VC Endovenous Ablation 1VeinLT IMPRESSION: Technically successful endovenous laser ablation left small saphenous vein Electronically authenticated by: FRANCES LEWIS Date: 01/29/2024 15:03
[2024-01-29] MEDS: 0.9 % SODIUM CHLORIDE 500 ML, LIDOCAINE HCL 20 ML, SODIUM BICARBONATE 10 MEQ INJ (14:00)
[2024-01-29 14:05] VITALS: BP 118/56; PULSE 82; O2SAT 97
== END 2024-01-29 14:52 | disposition home or self-care (01) ==
LOC: VC 13:59
PROVIDERS: PCP Radiology Diagnostic Radiology; Visit Provider Radiology Diagnostic Radiology
DX: I83.813 Varicose veins of bilateral lower extremities with pain (principal)
CPT/HCPCS: 36478

== ENCOUNTER 2024-02-05 14:28 | Outpatient (OUT) | payer OTHER, SELFPAY ==
--- NOTE | 2024-02-05 14:32 | VEIN_ITS ---
Patient Name: ANUPAMA CARDOSO MR#: [id number] : 1965 Exam Date: 02/05/2024 Ordering Doctor: DR FRANCES LEWIS M.D. RADIOLOGY REPORT PROCEDURE: VC EXT VENOUS LT LIMITED COMPARISON: VC EXT VENOUS LT LIMITED, 12/19/2023. INDICATIONS: I80.02 - Phlebitis and thrombophlebitis of superficial ve... TECHNIQUE: Lower extremity corrales scale and Duplex Doppler evaluation of the deep venous system from the inguinal ligament through the calf veins. FINDINGS: REGION: Left lower extremity. THROMBI: Negative for DVT. Heat induced thrombus visualized arising at proximal calf and extending through distal calf. COMPRESSIBILITY: Non-compressible segments corresponding to thrombus FLOW: Areas of no flow corresponding to thrombus OTHER: CONCLUSION: 1. Successful post ablation occlusion of left small saphenous vein. Dictated by: Heriberto Barnes M.D. on 02/05/2024 at 14:53 Approved by: Heriberto Barnes M.D. on 02/05/2024 at 15:18
--- NOTE | 2024-02-05 14:32 | VEIN_ITS ---
Patient Name: ANUPAMA CARDOSO MR#: [id number] : 1965 Exam Date: 02/05/2024 Ordering Doctor: DR FRANCES LEWIS M.D. RADIOLOGY REPORT PROCEDURE: [facility] EST LMTD [facility] - OFFICE VISIT FOLLOW UP [facility] PROGRESS NOTES: The patient reports improvement in leg symptoms. There has been interval reduction in varicosities. The patient has followed our recommendations to walk 20-30 minutes once or twice per day since the procedure. Physical exam demonstrates decrease in varicosities of the leg. Persistent varicosities are identified along the legs. Review of the ultrasound performed the same day demonstrates occlusive thrombus extending throughout the treated vein(s), see separate report, consistent with a successful ablation. No thrombus extending into or beyond the saphenofemoral junction. The patient expressed a desire to proceed with treatment of remaining incompetent varicosities. The patient was informed that treatment was a process and would require several procedures/sessions. [facility]: 1. Successful ablation of the left small saphenous vein(s). 2. Persistent varicose veins and lower extremity symptoms. PLAN: Endovenous laser ablation of right anterior accessory saphenous vein. Nurse notes, history and physical were reviewed and confirmed, see attached forms. The nurse was present throughout the physical exam and consultation Dictated by: Heriberto Barnes M.D. on 02/05/2024 at 15:18 Approved by: Heriberto Barnes M.D. on 02/05/2024 at 15:19
--- OUTSIDE RECORDS SUMMARY | 2024-02-05 14:37 | XMS_ITS | CCD ---
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 CD:[id number] +PGhlYWQ+PE1F WNUvW72gcOHsd J7XR3nSPC6MRO FSUBYVPC2SHA1 eiFX8ADcgU5Dn biAv KmquxKWtQQ59A Mk9LJS8xKveEY bnwH9xuHIqC7m 8NtCwPU10tW15 SJlsHKGiRgP8D jZpbjsgbWFy A6qvLxUuaBTkA yc+PHRhYmxlIH dpZHRoPScxMDA wGaDdpOaaFJ7h Je8aIBCoBPXfy GxhcHNlOiBj x0nbVGUwVYqdI Z9yxFhgY0AhqK V7PURio2s7Cz9 8dHI+PHRkIHN0 xLoaSNbkz867I vVzs6qcSZU0 iZNkPLakYVU4O 77gp7O7JETpQC AsQCR1pNF3vP0 vqMcgbxhiU9Jb iIOpYoI9LNR6i QAzgI2uzZtf zwhmpX6yVhw+Q 79XLK8GMUVLKK 0PKes3O4QzQwu vdHI+EK51ZAMz AM20eJXefUNhe 3bewJv6QdUs QJYbBXU7cUjuV Gatz8LuEHEeO9 6mnPGvz3C1YWR vbGxhcHNlOyBl yHZ1hH7gSWqnb tiwj4otarhp Wtzhi8viqi14w H12O00lJHngDV CbDKZ8FPKrIJH jwTyrnb0fsM1x Ii8+NSldu1xcs 1bzmXh5DtMy JSIgdmFsaWduP MC3u6GrVk42R6 UtaKjai8JhPeg 4nf40lPIam5M7 jEU6TFhjQQEfc W4pQGdzEzM1 MOTsKkDqrT65v NDoULklGu7llK lthNwpEA0uJRI qvnmoKUVbjM4h LWJvdHRvbTogM Q6lKYRprejs d435ZpHbEOD0L OWyjEJkG7YfeY 9yOiAjMDAwMDA xQ5OmyUBgWCyn I072OGjuPyQ4S DXvgmSaZ1Hr PLMhxTolKxL1e 6P7Sa2Ia6Pvvu osUUT2LZjpBIX dOcC2EaIlZpX4 Q5AfRhc6TXFmo NslEC5wP8Ep ZGRpbmctcmlna JR8EKYoMWJvzB 69lPPjSQjcWz9 yu0Y8p099OQZd ZOYsmT99Xm0su DogMTBwdCBU tT6ueotwh2mgb jogIzAwMDAwMD d4MVe7CQIqkJz dWkXuBRI9ZpW3 GDQ2qMRdtR6yy JserwfexU0j Oyc+C02tnV6fV XZ4ITZ4gadmEY XwjkSsBR91VV5 0F8TiZkhhcPBu bGU+PGRpdiBzd HagFX1kSuGq d4twp4YgRLlxY 2RkZGRkZDsnPj b6AWZwBMQ7wJE 4vY8tDYDaFUib i1W1cOW7K3Rax aPkyr4sm1es VCLmJFodT81es CWod8W2DQZyaQ K2SIUtfAoxQdS zyH01Luk+PGNv aIzys2KvEiukf 5bub8zoxOd2 IjMwJSIgdmFsa MpuBHC3v4MoTu 58P37aYXzcBCP oPSIxNSUiIHZh iNaltd2ywN2wV i8+PGNvbCB3 xZH0hI7xURFyV nT8FNelR999Bd XuqFKwJyzvn1w ut2ztuMv2IiCa JSIgdmFsaWduP KR8d7LbLk83 Q31yUIlrIHUpS SIyMCUiIHZhbG tsvx2jtM4zJj0 +QU4di1jhby13 hM86oWP+PHRkI MA2dCrvBXyu MXSwnA7hBLvuY nN8ROSpAxWwkQ 74lZTxBFuoJg3 rgEjisDvrIE8o SBSknnluf579R gXes8ioFRAj nDXqNYavAWD1L 05jx5Y4SUSfWJ HuXOK7oWJ6mL4 hbGlnbjogbGVm dDsgdmVydGljY SnxZBaxX243 IHRvcDsnPlBhd GllbnQgTmFtZT v5H5LuEuu5JFK hnEwwIF9mtOVf TKtxGj5naNabr RijAA9sSOLf ladat167FlKqq 2xkIDEwcHQgVG txAOP5Z48lv7R 8BZTtSJWvRWB9 bAL4cV8syLjcc jogbGVmdDsg dmVydGljYWwtY RsjW481ZGNtrY snPkJpcnRoIER ukLA9UF76GT13 yBVmh6J6qPT1A 3BhZGRpbmct dgnsrDH7WGUtA JFpcQ90Sh4yrM zyEl9fQLDmIHO 1GSMtuNPtS3Dd fJ4hKxEsSNLsZ WZjF7PtvJZp TUmhO141AQyjP pA4RPUifkZdZ7 FsLWFsaWduOiB 4k8X3Yo9GN3H3 VX82TL03hUCay 5Y4dOL4L5Xg ZGRpbmctcmlna XF8WRChOAKflT 50Kb9phEghUa3 rNLCqAJQ4OZNk gWUiT8HekC9oU iAjMDAwMDAw T3EepGXsPNscZ 527ZNebQrA5CU NvlgDzV2MzJYT tzWmgHpF1i6P2 Co1QPDm6VM43Q O98hSPux5A0 oKB6B2QhMXOiu ilmqesauRO4MJ ZhZRBqrZ18Fa1 wrVfeTq9eXVIu IVK6EOGfoRZeM 4FswT3bPiIa DRXzFCVsG4Fif DKiNRqcC041IU akXqF5YOZtebJ tR9YoTCAxtJuo XgC0z5G6Gn0FT GXeYB39SNG6 vWS3ZK62RS50G 3RyPjwvdGFibG U+PHRhYmxlIHd pZHRoPScxMDAl CsHfjUxbVC0aN p7tKXJnTSNb bGxhcHNlOiBjb 2xsYXBzZTsgZW 6xpLxpP5MbaXB 0XXKcs0u7Pq57 Y07iB2VmoLT+P BGtoCX5tZT4 jT1mDaOxByK3P UjoA420MoJioD NsUcrrz7vza7s ppMm9EzS0RYIw zbKgnRuiBEE8l 3IhAq18X09k IHdpZHRoPSIxN SUiIHZhbGlnbj 6biP5mNc7+PGN akYU1tDY3wQ9h ZuAcHzC1QMzcS 249InRvcCIv Cfyrx7sgj4gpb Ob8QaCrQVIrgy NbnTmxVIV0c3O aLu31R9YrhUfq z5XvYqc9re28t OXmi9H7gIV1 Y7VtLSKenrpim ZCqtYbyYS5jPJ BpbjtwYWRkaW5 zTCIzO4x3NbFm YzN4HZyhA7Fir xB9JDJbzFHg NMgbPLE7Y11aj 5W7TLPgNCEqTQ N8aFG2qV5klAx nbjogbGVmdDsg dmVydGljYWwtY PgyK995DDXe gMnoPZRamR9yR WJvdHRvbTogMC 4wNTBpbjsnPlJ PVEhIQUFSLCBL QVRITEVFTiBNP H16LZ69fZAf t7T4cOB6R5ZdB GRpbmctcmlnaH W1LSZcFEXczJ5 5dUNaQKfgSa5q g7M0a123DHRbO DJrqF73Tk1d dDogMTBwdCBUa O0kxzdam7onqc ogIzAwMDAwMDt 2QNo7SJHanZte UbKaXBX9HcU5G GS0hRDbuH7o hLsqiktdvJ5aY yc+MDQvMDgvMT t1NagsrKK+PHR dTPG2rGhkBPrt CUYalJ7rKMYnW 3f8DiDkReP4 BHipH8CoNBRiu yjdKj95sS7sRo EdEeH1ULqoU8D igmV5NBHmdUQt FCpjXMB0V65bp 0J4URUeXSRs JZP1mPR7kE0de GlnbjogbGVmdD sgdmVydGljYWw pXIlxB478LPXr hWxsDdM8ERirR BZyPT21WS67 nJStd8W8gME6Y 3BhZGRpbmctcm vibJK1VRXlZYF xzA87nGFnSBbv Xl5ab3T9j553P DFlVEWrqA32 Zv2cuNktMSIbd XPUaO5bhqbmk8 xvcjogIzAwMDA vCHz4HQe0DGMz dMsoHdVnVTZ9K kC5BAM6mSFm lY6uxNqjlurvo G9wOyc+RmVtYW ibMF68XN57vTH is6J0bFC9I2Fs ZGRpbmctcmlna JO0QAUcQAMb vF93hTObTIftF d3sp0K7h224YZ BsZUZllU98Ff0 udDogMTBwdCBU vS7cxhkaa1xcg jogIzAwMDAw MVw6GIe9XGJil PeeYtAeQCT1Jo P2JYY7uXDkbN4 clDiicdzbcZ8c Oyc+O8V1qEP4k WVudDwvdGQ+ ZX52jp12A8TgA akgMwq8TTXbDW T9rJA8gK4zHMY uRFpdl2B7tIQ6 T6MmmbGcaz2gh 2xsYXBzZTog W23vmTNqm9M8U IFlbQN8RGRqyU shOvCapT04Jrj +BFLmeFzny0Qa Kgmpq0smf0hxq Jl8OqWhEZPe ooCkcWajXVQ1t 3OpAh95S68hYZ dpZHRoPSIzMCU dDEDjjGulql5c nY2dGm6+PGNvb TR5kYJ9dN8d UgDlBiI0HWvmQ 249InRvcCIvPj evd3xmh5vrvKy 9IjIwJSIgdmFs dJoeJVS4w1QxO a58K1YxkApt o7GxQvo4hl17z LSaa0P6mBQ5Y8 BhZGRpbmctbGV inHnmQX2jIYAz ctgbDHXtwV0lO BEfU5e3QbGj WwE3VFczT7Aki gG4CURpyKKhIE QsuMKQtF8ccqo nw9bgjeibCrLi MGMmZUd6BWa4S WFsaWduOiBs MPB8KqY1AVH6v STulX6deJygfw tewC6lQvw+UGh 6o1lgbGVjRD3j dAX9KE81OJ93v OWuc8H0rRV7 T3EtATGzmgebv gnjbVM0KAJcES DteO37Jr4xgDd eLe2kUYFtHDP6 ZPQqeSNaJ5Mum N7vTeWmRGZf CKGuH8RctTYzQ EqxC886SWvmAb C2PJZzliCpX6I sLWFsaWduOiB0 a9F4Tm6XDA75E X51FP37tFZr m6Y9aEV1K0ImA GRpbmctcmlnaH J2PZCiAWYqqS8 6In4zaOreCd1a AAVjMSM3OPFpu QGeH2HljU1b OiAjMDAwMDAwO 0VdeFRcXWxxS1 39CEhnQjP2NXL tgmKaU4QgTDKe kPczGrB5z5G6Z z2CVi52FN07 AA63xREqc8U3g GJ2M0TgNPXpbs zajfbrbNG1OLI bVVLtvG58Yb8m qSsaIs6oOHGwJ AK5KRExrLYn E7TgzL9aYbBmO CCpKBCaY6IdnV VkLMhhR691JWy jEiF7BARcyzIo Z5UdEOXdeEgxE sD6i5S8Aw1Z RCkillb5C9SbF jwvdHI+PC90YW JdVA73vLSdiBD qj2uiaAx4JdYd DXZwVWJ1pDwqO Qosf2FkXZOt Y29s (more content not included)... Normal [facility] CHEMISTRYOrdered By: SYSTEM SYSTEM on 06-09-2022 [...] 29.2 pg Normal 27.0 - 34.0 pg [facility] [place] HemeAutoSS MCHC (RBC) [Mass/Vol] 32.0 g/dL Normal 31.4 - 36.0 gm/dL FT HemeAutoSS MCV (RBC) [Entitic vol] 91.1 fL Normal 80.0 - 100.0 fL FT HemeAutoSS Platelet mean volume (Bld) [Entitic vol] 10.3 fL Normal 6.4 - 10.8 fL [facility] [place] HemeAut oSS Platelets (Bld) [#/Vol] 219.0 E9/L Normal 150. 0 - 500.0 E9/L FT HemeAutoSS RBC (Bld) [#/Vol] 4.7 E12/L Normal 4.3 - 5.9 E12/L [facility] [place] HemeAutoSS WBC corrected for nucl RBC Auto (Bld) [#/Vol] 5.7 E9/L Normal 4.0 - 11.0 E9/L [facility] [place] HemeAutoSS Encounters Encounter Date Encounter Type Care Provider Facility Start: 09-18-2023 End: 09-18-2023 ambulatory PAOLA A DONNAMILLER Not Available Start: 08-21-2023 End: 08-21-2023 ambulatory PAOLA A DONNAMILLER Not Available Start: 07-11-2023 End: 07-11-2023 Patient encounter procedure Jonnathan Miranda [facility] Start: 06-09-2022 End: 06-09-2022 Patient encounter procedure Jonnathan Miranda [facility] Start: 05-10-2022 End: 05-10-2022 Lab Drop off Jonnathan Miranda [facility] Procedures Date Procedure Procedure Detail Performing [...] influenza virus vaccine, unspecified formulation Jonnathan Miranda [facility] Comment on above: Result Comment: R melva m - Lot#[id number] - Exp 12/18/2022 04-29-2021 influenza virus vaccine, unspecified formulation Jonnathan Miranda [facility] 04-01-2021 influenza virus vaccine, unspecified formulation Jonnathan Miranda [facility] 05-16-2020 zoster vaccine, live Jonnathan encarnacion [facility] 02-23-2020 zoster vaccine, live Jonnathan encarnacion [facility] 02-20-2020 influenza virus vaccine, unspecified formulation Jonnathan Miranda [facility] Payers Date Payer Category Payer Unknown [id number] 1965 Unknown [id number] 1965 Unknown [id number] Social History Date Type Detail Facility Start: 08-24-2021 Tobacco smoking status Never s moked tobacco (finding) [facility] Tobacco smoking status Never [facility] Sex Assigned At Female [facility] Evaluation + Plan note Radiology Note Date & Type Note Facility Evaluation + Plan note Future Appointments Appointment Date:06/19/2022 03:00:00 PM Scheduled Provider: Location:FT.BD Appointment Type:BD Bone Density (FT) Appointment Date:06/19/2022 03:30:00 PM Scheduled Provider: Location:FT.MAMMOGRAM Appointment Type:MA Screen (FT) Future Scheduled TestsBD Bone Density DEXA 06/19/22MA Mamm Screen w/CAD if perf and 3D Yosi 06/19/22 [facility] Hospital course Narrative Note Date & Type Note Facility Hospital course Narrative No data available for this section [facility] Hospital Discharge instructions Note Date & Type Note [facility] Hospital Discharge instructions No data available for this section [facility] Progress note Note Date & Type Note [facility] Progress note No data available for this section [facility] Summary Purpose Family History No Family History Records Found No data available for this section No Family History Records Found Advance Directives No Advanced Directives Records FoundNo Advanced Directives Records Found Additional Source Comments Patient Care team informatio n (unrecognized section and content) Personnel Name: Paola ALEXANDER CNP Address: Address: [place] [address]- Personnel Name: Paola ALEXANDER CNP Address: Address: [place] [address]- Personnel Name: Paola ALEXANDER CNP Address: Address: [place] [address]- INFORMATION SOURCE (unrecogn ized section and content) DATE CREATED AUTHOR 06/10/2023 [facility] DATE CREATED AUTHOR AUTHOR'S ORGANIZ ATION 09/19/2023 [facility] EPIC FOR RECORDS PERTAINING [...] BE BASED ON THE PRIMARY CLINICAL RECORDS. [facility] CURRENT [facility]. provides no warranty or guarantee of the accuracy or completeness of information in this document.
[2024-02-05 14:55] VITALS: BP 122/64; PULSE 72; O2SAT 99; BMI 28.0
--- NOTE | 2024-02-05 14:55 | VEINCLINIC_ITS ---
Vital Signs 02/05/24 14:55 Height 5 ft 7 in Weight 81 kg BMI 28.0 BP 122/64 BP Location Left Brachial BP Position Standing BP Cuff Size Adult BP Source Automatic Cuff Respiration 16 Pulse 72 Pulse Oximetry (%) 99 Comment The patient's blood pressure is elevated. Varicose Veins Patient in this day for follow up ultrasound post EVLT of left small saphenous vein. . Heriberto Miller MD personally performed the services described in this documentation, as scribed by Roma Arevalo RVT, RDMS in my presence and it is both accurate and complete. Roma Miller RVT, RDMS, am scribing for, and in the presence of, Dr. Heriberto Barnes and in the presence of the patient. medial thigh: bilateral, knee: bilateral, calf: bilateral, ankle: bilateral and nunes: bilateral sharp, intermittent and tender 6 15+ years Worsened in recent months: Yes standing and sitting bed rest, elevating extremities, compression stockings and other Reports edema, leg edema and other History of lower extremity trauma: No Superficial thrombophlebitis: No Family history of varicose veins: yes Has patient had previous lower extremity venous surgery: No Patient has previously received the following treatment(s) for lower extremity varicose veins: Reports vein ablation (Rt GSV, Rt SSV, Lt GSV) and sclerotherapy Does patient have a history of : yes Does patient intend to have future pregnancies: no Has patient had lower extremity venous scan with relux testing: Yes Support hose used: Yes (15+ years) Problems walking or doing physical activity: No How does it affect you: prolonged sitting required for work Do you walk much: Yes Do you stand much: Yes Medication compliance: good Large amounts of Vitamin K: No Review of Systems ROS Narrative Heriberto Miller MD personally performed the services described in this documentation, as scribed by Roma Arevalo RVT, RDMS in my presence and it is both accurate and complete. Roma Miller RVT, RDMS, am scribing for, and in the presence of, Dr. Heriberto Barnes and in the presence of the patient. Status of ROS 10 or more systems reviewed and unremark able except as noted in history and below Cardiovascular Reports: edema, swelling of feet/ankles and leg pain with exertion Musculoskeletal Reports: extremity pain, extremity swelling and muscle cramps Integumentary/Breast Reports: itching, skin pain, skin tenderness, skin swelling and changes in skin color PFSH PFSH Medical History (Updated 01/29/24 @ 07:47 by Rj Mathur) Phlebitis of superficial vein of left lower extremity ?I80.02 - Phlebitis and thrombophlebitis of superficial vessels of left lower extremity (ICD-10) Phlebitis and thrombophlebitis of superficial vessels of right lower extremity ?I80.01 - Phlebitis and thrombophlebitis of superficial vessels of right lower extremity (ICD-10) Parity 3 ?Z87.898 - Personal history of other specified conditions (ICD-10) 4 Onychomycosis ?B35.1 - Tinea unguium (ICD-10) Hypothyroidism ?E03.9 - Hypothyroidism, unspecified (ICD-10) Depression ?F32.A - Depression, unspecified (ICD-10) Varicose veins of bilateral lower extremities with pain ?I83.813 - Varicose veins of bilateral lower extremities with pain (ICD-10) Migraine ?G43.909 - Migraine, unspecified, not intractable, without status migrainosus (ICD-10) Telangiectasia ?I78.1 - Nevus, non-neoplastic (ICD-10) Surgical History (Updated 12/31/23 @ 15:28 by Roma Arevalo) Status post laser ablation of incompetent vein ?Z98.890 - Other specified postprocedural states (ICD-10) S/P sclerotherapy of varicose veins ?Z98.890 - Other specified postprocedural states (ICD-10) ?Z86.79 - Personal history of other diseases of the circulatory system (ICD- 10) History of laparoscopy-assisted vaginal hysterectomy ?Z90.710 - Acquired absence of both cervix and uterus (ICD-10) Previous section ?Z98.891 - History of uterine scar from previous surgery (ICD-10) Family History (Updated 12/31/23 @ 15:22 by Roma Arevalo) Father Family history of cancer Family history of hypertension Mother Family history of hypertension Varicose veins of bilateral lower extremities with pain Social History (Updated 12/31/23 @ 15:22 by Roma Arevalo) Within the past year, how often did you have a drink containing alcohol: 2-4 times a month Smoking status: Never smoker Non-prescribed substance use: denies use Meds Home Medications and Allergies Home Medications ?Medication ?Instructions ?Recorded ?Confirmed ?Type albuterol 90 mcg-budesonide 80 2 inh inhalation DAILY PRN 12/31/23 12/31/23 History mcg/actuation HFA aerosol inhaler shortness of breath (Airsupra) amoxicillin 875 mg-potassium 1 tab PO BID 12/31/23 12/31/23 History clavulanate 125 mg tablet atogepant 60 mg tablet (Qulipta) 60 mg PO DAILY 12/31/23 12/31/23 History fluoxetine 20 mg capsule 20 mg PO DAILY 12/31/23 12/31/23 History levothyroxine 75 mcg tablet 75 mcg PO DAILY 12/31/23 12/31/23 History (Euthyrox) rizatriptan 10 mg tablet (Maxalt) See Rx Instructions PO .COMPLEX 12/31/23 12/31/23 History terbinafine HCl 250 mg tablet 250 mg PO DAILY 12/31/23 12/31/23 History ubrogepant 100 mg tablet (Ubrelvy) mg 12/31/23 History Allergies Allergy/AdvReac Type Severity Reaction Status Date / Time No Known Drug Allergies Allergy Verified 10/19/23 15:25 Exam Narrative Exam Narrative: Heriberto Miller MD personally performed the services described in this documentation, as scribed by Roma Arevalo RVT, RDMS in my presence and it is both accurate and complete. Roma Miller RVT, RDMS, am scribing for, and in the presence of, Dr. Heriberto Barnes and in the presence of the patient. Constitutional Documenting provider has reviewed patient's vital signs: yes Common normals: oriented x3 Lymph Lymphatic: no lymphedema noted Cardio Common normals: regular rate Rate: regular rate Peripheral pulses: posterior tibial pulses present and dorsalis pedis pulses present Extremity Common normals: normal capillary refill General: calf tenderness and edema Right lower extremity: upper leg and lower leg Left lower extremity: upper leg and lower leg Neuro Common normals: oriented x3 Results Imaging Venous US: Radiologist's impression: The ultrasound demonstrates heat induced thrombus visualized arising at proximal calf and extending through distal calf. Assessment and Plan Assessment and Plan (1) Phlebitis of superficial vein of left lower extremity: (2) Varicose veins of bilateral lower extremities with pain: Plan Patient in today for follow up ultrasound of lower extremity following treatment of EVLT of left leg SSV completed on 01/29/24. The plan is for the patient to return for EVLT of right leg AASV. Heriberto Miller MD personally performed the services described in this documentation, as scribed by Roma Arevalo RVT, RDMS in my presence and it is both accurate and complete. Roma Miller RVT, RDMS, am scribing for, and in the presence of, Dr. Heriberto Barnes and in the presence of the patient.
--- NOTE | 2024-02-05 14:59 | P.DS_ITS ---
Discharge Plan Discharge Disposition: Home, Self-Care Outpatient Diagnostics: VC Endovenous Ablation 1VeinRT (Routine) Timeframe: 2 Weeks Facility: [facility] - Location: [facility] Ordered By: Delbert Rosa Follow Up Appointments: 02/12/24 Plan of Treatment: EVLT of right leg AASV. Print Language: Azeri Discharge Date/Time: 02/05/24 15:01
== END 2024-02-05 15:01 | disposition home or self-care (01) ==
PROVIDERS: PCP Radiology Diagnostic Radiology; Visit Provider Radiology Diagnostic Radiology
DX: I83.813 Varicose veins of bilateral lower extremities with pain (principal); I80.02 Phlebitis and thrombophlebitis of superficial vessels of left lower extremity
CPT/HCPCS: 93971; G0463

== ENCOUNTER 2024-02-12 14:33 | Outpatient (OUT) | payer OTHER, SELFPAY ==
--- NOTE | 2024-02-11 15:32 | VEINCLINIC_ITS ---
Vital Signs 02/11/24 15:38 02/12/24 14:43 Height 5 ft 7 in Weight 81.647 kg BP 130/72 BP Location Right Brachial BP Position Sitting BP Cuff Size Adult BP Source Manual Cuff Respiration 16 Pulse 78 Pulse Source Monitor Pulse Oximetry (%) 98 Oxygen Delivery Method Room Air Comment The patient's blood pressure is elevated. Varicose Veins Patient in this day for EVLT of Right AASV . Delbert Miller MD personally performed the services described in this documentation, as scribed by Rj Mathur RN in my presence and it is both accurate and complete. Rj Miller RN, am scribing for, and in the presence of, Dr. Delbert Rosa and in the presence of the patient. medial thigh: bilateral, knee: bilateral, calf: bilateral, ankle: bilateral and nunes: bilateral sharp, intermittent and tender 6 15+ years Worsened in recent months: Yes standing and sitting bed rest, elevating extremities, compression stockings and other Reports edema, leg edema and other History of lower extremity trauma: No Superficial thrombophlebitis: No Family history of varicose veins: yes Has patient had previous lower extremity venous surgery: No Patient has previously received the following treatment(s) for lower extremity varicose veins: Reports vein ablation (Rt GSV, Rt SSV, Lt GSV) and sclerotherapy Does patient have a history of : yes Does patient intend to have future pregnancies: no Has patient had lower extremity venous scan with relux testing: Yes Support hose used: Yes (15+ years) Problems walking or doing physical activity: No How does it affect you: prolonged sitting required for work Do you walk much: Yes Do you stand much: Yes Medication compliance: good Large amounts of Vitamin K: No Review of Systems ROS Narrative Delbert Miller MD personally performed the services described in this documentation, as scribed by Rj Mathur RN in my presence and it is both accurate and complete. Rj Miller RN, am scribing for, and in the presence of, Dr. Delbert Rosa and in the presence of the patient. Status of ROS 10 or more systems reviewed and unremark able except as noted in history and below Cardiovascular Reports: edema, swelling of feet/ankles and leg pain with exertion Musculoskeletal Reports: extremity pain, extremity swelling and muscle cramps Integumentary/Breast Reports: itching, skin pain, skin tenderness, skin swelling and changes in skin color PFSH PFSH Medical History (Updated 01/29/24 @ 07:47 by Rj Mathur) Phlebitis of superficial vein of left lower extremity ?I80.02 - Phlebitis and thrombophlebitis of superficial vessels of left lower extremity (ICD-10) Phlebitis and thrombophlebitis of superficial vessels of right lower extremity ?I80.01 - Phlebitis and thrombophlebitis of superficial vessels of right lower extremity (ICD-10) Parity 3 ?Z87.898 - Personal history of other specified conditions (ICD-10) 4 Onychomycosis ?B35.1 - Tinea unguium (ICD-10) Hypothyroidism ?E03.9 - Hypothyroidism, unspecified (ICD-10) Depression ?F32.A - Depression, unspecified (ICD-10) Varicose veins of bilateral lower extremities with pain ?I83.813 - Varicose veins of bilateral lower extremities with pain (ICD-10) Migraine ?G43.909 - Migraine, unspecified, not intractable, without status migrainosus (ICD-10) Telangiectasia ?I78.1 - Nevus, non-neoplastic (ICD-10) Surgical History (Updated 12/31/23 @ 15:28 by Roma Arevalo) Status post laser ablation of incompetent vein ?Z98.890 - Other specified postprocedural states (ICD-10) S/P sclerotherapy of varicose veins ?Z98.890 - Other specified postprocedural states (ICD-10) ?Z86.79 - Personal history of other diseases of the circulatory system (ICD- 10) History of laparoscopy-assisted vaginal hysterectomy ?Z90.710 - Acquired absence of both cervix and uterus (ICD-10) Previous section ?Z98.891 - History of uterine scar from previous surgery (ICD-10) Family History (Updated 12/31/23 @ 15:22 by Roma Arevalo) Father Family history of cancer Family history of hypertension Mother Family history of hypertension Varicose veins of bilateral lower extremities with pain Social History (Updated 12/31/23 @ 15:22 by Roma Arevalo) Within the past year, how often did you have a drink containing alcohol: 2-4 times a month Smoking status: Never smoker Non-prescribed substance use: denies use Meds Home Medications and Allergies Home Medications ?Medication ?Instructions ?Recorded ?Confirmed ?Type albuterol 90 mcg-budesonide 80 2 inh inhalation DAILY PRN 12/31/23 12/31/23 History mcg/actuation HFA aerosol inhaler shortness of breath (Airsupra) amoxicillin 875 mg-potassium 1 tab PO BID 12/31/23 12/31/23 History clavulanate 125 mg tablet atogepant 60 mg tablet (Qulipta) 60 mg PO DAILY 12/31/23 12/31/23 History fluoxetine 20 mg capsule 20 mg PO DAILY 12/31/23 12/31/23 History levothyroxine 75 mcg tablet 75 mcg PO DAILY 12/31/23 12/31/23 History (Euthyrox) rizatriptan 10 mg tablet (Maxalt) See Rx Instructions PO .COMPLEX 12/31/23 12/31/23 History terbinafine HCl 250 mg tablet 250 mg PO DAILY 12/31/23 12/31/23 History ubrogepant 100 mg tablet (Ubrelvy) mg 12/31/23 History Allergies Allergy/AdvReac Type Severity Reaction Status Date / Time No Known Drug Allergies Allergy Verified 10/19/23 15:25 Exam Narrative Exam Narrative: IDelbert MD personally performed the services described in this documentation, as scribed by Rj Mathur RN in my presence and it is both accurate and complete. IRj RN, am scribing for, and in the presence of, Dr. Delbert Rosa and in the presence of the patient. Constitutional Documenting provider has reviewed patient's vital signs: yes Common normals: oriented x3 Lymph Lymphatic: no lymphedema noted Cardio Common normals: regular rate Rate: regular rate Peripheral pulses: posterior tibial pulses present and dorsalis pedis pulses present Extremity Common normals: normal capillary refill General: calf tenderness and edema Right lower extremity: upper leg and lower leg Left lower extremity: upper leg and lower leg Neuro Common normals: oriented x3 Assessment and Plan Assessment and Plan (1) Varicose veins of bilateral lower extremities with pain: Plan f/u evaluation with physician along with right leg limited u/s Procedures Procedure Instructions Procedures Plan of care: Risks and benefits of the procedure were discussed at length and informed writte n consent was obtained.? Time-out completed for verification of correct patient, procedure and site.? Staff present during time-out: Rj Mathur RN,? [facility] MD, [facility]. Time Out Time_1455 Patient prepped and procedure performed in usual sterile fashion. Risk of injury related to use of Diode laser and/or laser devices__CR___ ? Serial number of laser used :? [id number] Control panel self test performed, electrical cords in good condition, floor is dry, basin of water available, fire extinguisher in close proximity_CR__ Polycarbonate goggles available and Laser warning signs outside of doors___CR__ Eye protection provided to patient and staff in room_CR___ Use of laser retardant drapes and dull blackened instruments as directed__CR___ Use of nonflammable prep solutions and use of saline soaked sponges to protect tissues as indicated _CR___ Length __15__ cm Laser operated by _Dr. Rosa Physician verbal confirmation laser locked in place__CR__ Laser start time (date and time) __02/12/2024@_1504___ Laser stop time(date and time) _02/12/2024@_1506___ Forrester _8.0___ Average laser use __755 Joules Average laser use_94 seconds Pulse continuous ___CR_? Pulse intermittent ___ Amount of Tumescent used __100cc____ Evaluated patient for signs and symptoms of electrical injury __CR___ ? Skin clear at insertion site __CR___ Patient tolerated procedure well.? Left leg Coban dressing applied to access site.? Applied Left thigh high leg compression stocking. Will return on 02/19/2024. for Left leg limited venous ultrasound and exam. IDelbert MD personally performed the services described in this documentation, as scribed by Rj Mathur RN in my presence and it is both accurate and complete. I, Rj Mathur RN, am scribing for, and in the presence of, Dr. Delbert Rosa and in the presence of the patient.
--- NOTE | 2024-02-11 15:37 | P.DS_ITS ---
Discharge Plan Discharge Disposition: Home, Self-Care Outpatient Diagnostics: VC Facility EST LMTD (Routine) Timeframe: 2 Weeks Facility: [facility] - Location: [facility] Ordered By: Delbert Rosa VC EXT Venous RT LMTD (Routine) Timeframe: 2 Weeks Facility: [facility] - Location: Vein Center Ordered By: Delbert Rosa Follow Up Appointments: 02/19/2024 Plan of Treatment: f/u evaluation with physician along with right leg limited u/s Patient Instructions: Endovenous Ablation (DC) Print Language: Pashto Discharge Date/Time: 02/12/24 15:29
[2024-02-12] MEDS: LIDOCAINE HCL 1% 100 MG/10 ML MDV INJ (14:33)
[2024-02-12] MEDS: 0.9 % SODIUM CHLORIDE 500 ML, LIDOCAINE HCL 20 ML, SODIUM BICARBONATE 10 MEQ INJ (14:34)
--- NOTE | 2024-02-12 14:34 | VEIN_ITS ---
[address] [address] Patient Name: ANUPAMA CARDOSO MRN: [id number] date: 1965 Sex: F Assigned Patient Location: Current Patient Location: Accession/Order Number: [id number] Exam Date: 02/12/2024 14:35 Report Date: 02/12/2024 15:28 At the request of: FRANCES LEWIS Procedure: VC Endovenous Ablation 1VeinRT EXAMINATION: VC Endovenous Ablation 1VeinRT HISTORY: I83.813 - Varicose veins of bilateral lower extremities w... COMPARISON: No relevant comparison available. TECHNIQUE: The risks and benefits of the procedure had been previously discussed, and were rediscussed at length. Informed written consent was obtained. Carol Arevalo and Rj Mathur assisted. Time out procedure was performed. The right lower extremity was prepared and draped in the usual sterile fashion to allow knee flexion in the sterile field. Duplex ultrasound probe was draped in a sterile cover, sterile transmission gel was used. Venous mapping was performed with the areas of dilation and large tributaries marked. The total length was 15 cm from the entry mid thigh to 3 cm below the saphenofemoral junction. The diameter of the anterior accessory saphenous vein ranged from 4-6 mm. A 30 gauge needle and 1% buffered lidocaine was used to anesthetize the entry site. A 4 mm incision was made with a scalpel and the saphenous vein was entered percutaneously under direct ultrasound guidance with a micropuncture set, a single stick was successful in gaining access. A micro-guide wire was inserted and the needle removed. A micro-set including a dilator was inserted over the microwire and the needle and dilator were removed. A 0.018 guide wire was inserted through the micro-set and threaded through the saphenous vein to the saphenofemoral junction. The dilator was removed and an introducer sheath was inserted over the wire until the end of the sheath entered the saphenofemoral junction. The dilator and wire were removed and the 600 micron fiber was introduced and placed and positioned so that it extended beyond the sheath and was 3 cm peripheral to the saphenofemoral femoral junction. Final position of the fiber was determined by ultrasound guidance and duplex imaging. Tumescent anesthetic was delivered by ultrasound guidance. 100 cc of fluid was delivered along the entire course of the saphenous vein. The solution consisted of 1000 cc of normal saline with 40 mL of 1% lidocaine and 20 mL of sodium bicarbonate. A final positioning check was made. The energy source was turned on by means of the foot pedal and the fiber and sheath were withdrawn. The total number of Joules delivered was 755. The laser was active for 94seconds under continuous pulse, average laser use of 8 J. Laser start time 1:04 PM 02/12/2024 . Laser stop time 1:06 PM 02/12/2024 . A duplex ultrasound revealed compressibility and flow at the saphenofemoral junction immediately after the procedure. Hemostasis at the access site was achieved. The skin incision of the saphenous vein was closed with a 4 x 4. A compression stocking was applied. Postop instructions were given. A follow up appointment was recommended and scheduled. The patient tolerated the procedure well and was discharged in good condition . VEIN/VC Endovenous Ablation 1VeinRT IMPRESSION: Technically successful endovenous laser ablation of the right anterior accessory saphenous vein Electronically authenticated by: FRANCES LEWIS Date: 02/12/2024 15:28
[2024-02-12 14:43] VITALS: BP 130/72; PULSE 78; O2SAT 98
--- OUTSIDE RECORDS SUMMARY | 2024-02-12 14:51 | XMS_ITS | CCD ---
Author Organization [facility] Care Team Providers Care Division Order Technician Name Role Phone Paola ALEXANDER Primary Care Physician [phone] PAOLA ALEXANDER Attending Unavailab PAOLA Burden Attending [...] 24hrs, # 18 tab(s), Refills(s) 1, Pharmacy: [facility], 170, cm, 08/24/21 14:04:00 [...] Chem Physician Orderon 06-07-2023 Physician Order [id number] F#1.00TIFF Normal Cruz [facility] Coding Summary.on 06-15-2022 Coding Summary. [id number] +PGhlYWQ+PE1F JLMyX08oiYIib N9FI7mPST2XWF CHOBCZWP0HZS4 cvCP9LXikH9Wk biAv YutidWGxYM79J Vj8LMR1lWogYI dfcJ0imMVhQ6s 9YoBpBS77zB15 CFcdCQMaScF8C jZpbjsgbWFy A8liUmWxeDTpP yc+PHRhYmxlIH dpZHRoPScxMDA iBaCruUcxHD7j Nh0kXRXjVUEck GxhcHNlOiBj r7wfHUAqEVorI U6cuWrqG0EwzT H0EEPal6d5Fa0 8dHI+PHRkIHN0 sEiyLCkoh374L uFsw2sdDYB7 aRRaOIihXEH4Z 10id8Z6WZJcCW QuAFC4kMH9nZ8 dhXuqybjiV3Rl qYOvQwU7SRF1a PPpbO0uwMmu etvvpS6oQah+Q 91JRS8LWYWVNK 4TZpo1B9QcHzw vdHI+OA16KRTu FF00zDIgwYDzn 5mwoAd5SpBh BLFaIQK9oZccG Nnir6HtUMPlN9 0gfMXtk7J5MFY vbGxhcHNlOyBl bWL3nH1uVChzy mcpu7xakxam Fcvhq9aatg63n D49P54vVAbxLK XcUUK8YZVkNMP lvCfuwa4ueY0k Ii8+FHodc4crm 8aatGo0FeWq JSIgdmFsaWduP RR0g9HvKy95C9 VuaVpqi3CtNsi 7nd44gTLdd2Y9 fNJ1DPoyVXCyo R9nBXefAyX5 EWLlFxVhhD97o VFeXYypYe3oaP izcPzvEJ7mATQ gfvdzPAUwnX5q LWJvdHRvbTogM Y5xCXWuaikw g137TxMmFKP8A YQhnWHrM3ZdlR 9yOiAjMDAwMDA kB1WhaJZsMOfb K925WTuiSmN3D FNebgImT2Ml XJUlbJsjZkM6d 1I6Uu4Nu9Qhli atBVY5MQjkLZY yKpG6GpQbXvM6 G6ThXtg6VBQea RczKF6dJ1Mr ZGRpbmctcmlna UN6JXYrBFOhlZ 69rZAqVEndDi6 qk7M5k103AOEn UOLrdG05Yi6qb DogMTBwdCBU uS7uievwo0oyg jogIzAwMDAwMD z3JHc8VIApzEx oEvPeERC3HtJ0 VCL1bRZlxD3tn AjwnekvgL2t Oyc+N30xwG7rY DW5YVJ4hwssPA VcbyUsRH31WN5 4S9MsNeblaJYa bGU+PGRpdiBzd FsySG2xNtQs w2gvj9VsPOcmC 2RkZGRkZDsnPj n2GRUjROH1iQV 0oL3oNDXlALym n9Y6mRX4X5Pav nPdpa4dp7eo AQXaFIcaK79mu RScv9E2MFMyzA U9BFHueTqqRlO fyC85Raq+PGNv jKrfg3MyFnuud 4cnq6njnDu0 IjMwJSIgdmFsa SgkEJI2q2SxFe 15L81cANgiORD oPSIxNSUiIHZh mUgbij2riJ6aP i8+PGNvbCB3 gWX4tK2dWGTyB dC3JQpjJ227Wc EkoYWlAvdxi7c gy6bveTq7XsLq JSIgdmFsaWduP YV4h4YiMp45 S47lBGwoIKRyV SIyMCUiIHZhbG rjnl4bfX2fEe4 +CB0ak4vuhn84 dA10gMF+PHRkI GA9hKgvTCjq RGMqtI7lULmyX iV8LTTbKxToiD 30sOWmHSjuKt5 whLfwoEnpDD2s DLOtrsnsp923W qWhf9exOMDx bEUlULguNLK2I 62ev8I7ALDkWH EaELM8rSX6wG7 hbGlnbjogbGVm dDsgdmVydGljY YiyYMxkQ236 IHRvcDsnPlBhd GllbnQgTmFtZT w2O5BdNzb8DFG zsZubVG9noSHz OOycBv1fyGwyz UtcET8tKPJb klggb611GrLfy 2xkIDEwcHQgVG hqSQT4B23yt1Q 2ADNaTJHcXZS6 oBD6tF3ibTbcd jogbGVmdDsg dmVydGljYWwtY VczT735PIFcoH snPkJpcnRoIER cyTD6UB98FZ63 bIQvt2K6mIX8P 3BhZGRpbmct kqedqRP5DIAsH XMzxR95Xb6vfA alMv1gLKSlKNP 9KJMzwROhD6Ij uP5iRoWgYYFxV MLgW5GmhRKy GQvfP327UUgoN fT3QZOzhgDvO6 FsLWFsaWduOiB 0j8E7Zt5FC9S8 SP03MS18nEIto 7B5sGO2T2El ZGRpbmctcmlna XU4TLZwQWHneY 42Nz8csPguFj4 tQOUxYKF5GIOz yZDeD4XxsY9sF iAjMDAwMDAw U3BbyAByWLpgW 459MBhdKgC8ZF DsrzPqO1CqJSV mbVvuYqW1l8W7 Oo7XIGu2VQ08V H80mGOmm6X2 lXD3H2CxUSBlb xhygcbwvTD2LY PfIQWaqG17Pu5 saValGj1jUDEq WPO5PEKrvQOdK 5PrdA8zNzNy TORyUXWvG1Xyd CKdBXgqI706ZS ndXmL4HMFgejX jD7GcVPGqqTmf ZzU6h1J3No5KT HEwKL13XBO7 qPF0QV09NB13O 3RyPjwvdGFibG U+PHRhYmxlIHd pZHRoPScxMDAl MiNonHanIU9iE h2kUIOvVAVt bGxhcHNlOiBjb 2xsYXBzZTsgZW 5qvMptZ5LvhMT 9NAVwx4h7Dh94 J53mJ1GylWD+P EOioPG3uUA3 gJ1jPnTyXyE4O EllN250ZwEnzQ LgExzsu2lcd8r csHq7SoO8XUSj mgJscIpwPVF0v 5TzEa98P71r IHdpZHRoPSIxN SUiIHZhbGlnbj 1kwS3cDt2+PGN ynOS8gPU1hM2z ZeHpMiZ9GUnxV 249InRvcCIv Qxpwb1jnn8puv Ax4OiFpDZIgjg LxbAhyIAZ4z0H uZw89E4QcrOur b8FpAye1se42s GGyj4J8hHO8 D1MzKKNtowomk DJjuGlmWW3iPM BpbjtwYWRkaW5 fZQVvR5x7WdRs RzR2BSptN1Vwp jP5IWBagHZw TAtqZYO7A20om 8E5YAXuNDGsYO R0yTB1xC8sdOx nbjogbGVmdDsg dmVydGljYWwtY ExuW818XAWm fHpuZHHisX8zD WJvdHRvbTogMC 4wNTBpbjsnPlJ PVEhIQUFSLCBL QVRITEVFTiBNP S99LV71yRGe f5K5uBS3E7FqG GRpbmctcmlnaH H1ZYMxRGPfyL5 6jCJpIEblVp4x s3A0d161JKGnR XSjaJ37Fh2g dDogMTBwdCBUa G1rqnapr0nzto ogIzAwMDAwMDt 9MLy1KVQlnGwg XmKrJWK5UvP7R YL9lAOofJ1y gHqdcjiuiV0gB yc+MDQvMDgvMT l4WwgyiYM+PHR wHLB6bCvuBQpa BRAprP5yTKRjG 6w0WeMuXvE1 ZMqhA4QfMLCpd hrpEh28bB1zQo YoFjP2UWeeZ5V roaN7BNEpoMLr AOwqXUP1Q63uh 4Q4QFZhVMYf GAZ7fMS5iO1mt GlnbjogbGVmdD sgdmVydGljYWw tXTcxH121RCOo tPjrQnI2SDlxA EJqOT89NO78 gHHrz1I1dSD7H 3BhZGRpbmctcm puoJD0GZXgQXE khU54fKWrQCxx Iv5ok3Y1f996W OBeUEWfiL78 Ri0luUbzDHMoq CLMcF2xjyanv1 xvcjogIzAwMDA wUWi3HQb7URCr vLxiDmNdMHJ7Z nU7RJF0uTAg uG4zvIgzwotjk G9wOyc+RmVtYW xlTL34RS58zJD ur2N8aJQ7S6Dm ZGRpbmctcmlna CZ7YSXfKDDo dN14qRNjQAdiS m8uw4T8c921KP FzLMObiM17Mu6 udDogMTBwdCBU sZ0kfujxy9kjk jogIzAwMDAw RSt4KKt5ADSvz AyaHyMjCNE7Sb W9SUW9gJTruS7 iwJiffzlfpJ6h Oyc+O1H4aOC6t WVudDwvdGQ+ FZ71lf37Y9QxS aqsLii2EKFqQA R3wNM5iA9sOQV fKUyaf1X1gYS2 O3JgdpUsey7gs 2xsYXBzZTog G94eaTRer7Q4L VFroFH3UAYmsL ufMiFrxA38Sjt +CJDhgIdhs3Di Axglj6hff7nxp Fi3BzHvAAGk sePrgAlrIZF4h 4AkRm59W74lSJ dpZHRoPSIzMCU yYSFghZwhoa1y tP2gGh9+PGNvb TU7dLA9eO4a IjQvOmB0WSdpV 249InRvcCIvPj jjv7qnx2tkhMw 9IjIwJSIgdmFs aMtoJDR8r6YmL d86B0QzpIaz f3XpGnu2jo13r FSmo6B7vZR4E3 BhZGRpbmctbGV gcQwqKZ6gDISd aztzQYAmtJ2bC FRiC5j0KpYd HoY9YErdQ1Tua pD9YPMckLWdQY VrsAFZpV9xekx pm8vazoabQaKb GCLlVRa9PAe1G WFsaWduOiBs SMQ3BzV3RSL4i JKzbK5djDdfdi qsrP5pFxw+UGh 0j1aedKMnCI5c nMT2GS55BB41x YWie3X9zUE4 O8KwTTQpjckcn ppwxAD7DSFtZF LmbJ38Je4xrGe lMb7eETRkCCO8 YYJfrOTmI9Btl J7uYvWsKCFq JDIyE9WygXXqM TrzW382SItaJn C7VYDrtfSpY5I sLWFsaWduOiB0 t1T5Od6KIP66K B42DT19gHDo y4G8tXB7H7CcN GRpbmctcmlnaH E4XYOqPIJqjS6 9Pt7kxJeoIv6m MSAkGPZ2OPEma QLzM6EmcE4n OiAjMDAwMDAwO 3XcmOUuUFpvV0 72PRgxHgQ9RXQ nduWiF7SeDUDh cDjaSdC4a6N2Z e9MGt06AS24 XU47wWGqy5J0t WC6C2LnPSHbln kchzpxoVY5YJW cUBLlzW87Lv9z hYjaWv6mKTAfP HN1QQEfpDCw O2JpsH7tVqTvG QJhCUYxI2IrcK ClVYzjM626ROl jQcO9EFLtttDh J9JcISSzzQvkY zZ0w5B1Qm3F ETtkoei7O9JlD jwvdHI+PC90YW RgSO37dOUoqLB uw9opuEz9ZfWh XAZrYDG7eDjwE Nwtf8PbRXEj Y29s (more content not included)... Normal [facility] CHEMISTRYOrdered By: SYSTEM SYSTEM on 06-09-2022 25-hydroxyvitamin [...] 29.2 pg Normal 27.0 - 34.0 pg [facility] HemeAutoSS MCHC (RBC) [Mass/Vol] 32.0 g/dL Normal 31.4 - 36.0 gm/dL [facility] HemeAutoSS MCV (RBC) [Entitic vol] 91.1 fL Normal 80.0 - 100.0 fL [facility] HemeAutoSS Platelet mean volume (Bld) [Entitic vol] 10.3 fL Normal 6.4 - 10.8 fL [facility] HemeAut oSS Platelets (Bld) [#/Vol] 219.0 E9/L Normal 150. 0 - 500.0 E9/L [facility] HemeAutoSS RBC (Bld) [#/Vol] 4.7 E12/L Normal 4.3 - 5.9 E12/L [facility] HemeAutoSS WBC corrected for nucl RBC Auto (Bld) [#/Vol] 5.7 E9/L Normal 4.0 - 11.0 E9/L [facility] HemeAutoSS Encounters Encounter Date Encounter Type Care Provider Facility Start: 09-18-2023 End: 09-18-2023 ambulatory PAOLA A DONNAMILLER Not Available Start: 08-21-2023 End: 08-21-2023 ambulatory PAOLA A DONNAMILLER Not Available Start: 07-11-2023 End: 07-11-2023 Patient encounter procedure Jonnathan Miranda [facility] Start: 06-09-2022 End: 06-09-2022 Patient encounter procedure Jonnathan Miranda [facility] Start: 05-10-2022 End: 05-10-2022 Lab Drop off Jonnathan Miranda [facility] Procedures Date Procedure Procedure Detail Performing [...] influenza virus vaccine, unspecified formulation Jonnathan Miranda [facility] Comment on above: Result Comment: R melva m - Lot#[id number] - Exp 12/18/2022 04-29-2021 influenza virus vaccine, unspecified formulation Jonnathan Miranda [facility] 04-01-2021 influenza virus vaccine, unspecified formulation Jonnathan Miranda [facility] 05-16-2020 zoster vaccine, live Jonnathan encarnacion [facility] 02-23-2020 zoster vaccine, live Jonnathan encarnacion [facility] 02-20-2020 influenza virus vaccine, unspecified formulation Jonnathan Miranda [facility] Payers Date Payer Category Payer Unknown [id number] 1965 Unknown [id number] 1965 Unknown [id number] Social History Date Type Detail Facility Start: 08-24-2021 Tobacco smoking status Never s moked tobacco (finding) [facility] Tobacco smoking status Never [facility] Sex Assigned At Female [facility] Evaluation + Plan note Radiology Note Date & Type Note Facility Evaluation + Plan note Future Appointments Appointment Date:06/19/2022 03:00:00 PM Scheduled Provider: Location:FT.BD Appointment Type:BD Bone Density (FT) Appointment Date:06/19/2022 03:30:00 PM Scheduled Provider: Location:FT.MAMMOGRAM Appointment Type:MA Screen (FT) Future Scheduled TestsBD Bone Density DEXA 06/19/22MA Mamm Screen w/CAD if perf and 3D Yosi 06/19/22 [facility] Hospital course Narrative Note Date & Type Note Facility Hospital course Narrative No data available for this section [facility] Hospital Discharge instructions Note Date & Type Note [facility] Hospital Discharge instructions No data available for this section [facility] Progress note Note Date & Type Note [facility] Progress note No data available for this section [facility] Summary Purpose Family History No Family History Records Found No data available for this section No Family History Records Found Advance Directives No Advanced Directives Records FoundNo Advanced Directives Records Found Additional Source Comments Patient Care team informatio n (unrecognized section and content) Personnel Name: Paola ALEXANDER CNP Address: Address: [address] [place] [address]- Personnel Name: Paola ALEXANDER CNP Address: Address: [address] [place] [address]- Personnel Name: Paola ALEXANDER CNP Address: Address: [address] [place] [address]- INFORMATION SOURCE (unrecogn ized section and content) DATE CREATED AUTHOR 06/10/2023 [facility] DATE CREATED AUTHOR AUTHOR'S ORGANIZ ATION 09/19/2023 [facility] EPIC FOR RECORDS PERTAINING [...] BE BASED ON THE PRIMARY CLINICAL RECORDS. [facility]. provides no warranty or guarantee of the accuracy or completeness of information in this document.
== END 2024-02-12 15:29 | disposition home or self-care (01) ==
LOC: VC 14:33
PROVIDERS: PCP Radiology Diagnostic Radiology; Visit Provider Radiology Diagnostic Radiology
DX: I83.813 Varicose veins of bilateral lower extremities with pain (principal)
CPT/HCPCS: 36478

== ENCOUNTER 2024-02-20 14:32 | Outpatient (OUT) | payer OTHER, SELFPAY ==
--- NOTE | 2024-02-20 14:35 | VEIN_ITS ---
Patient Name: ANUPAMA CARDOSO MR#: [id number] : 1965 Exam Date: 02/20/2024 Ordering Doctor: DR FRANCES LEWIS M.D. RADIOLOGY REPORT PROCEDURE: VC EXT VENOUS RT LMTD COMPARISON: VC EXT VENOUS RT LMTD, 01/07/2024. INDICATIONS: I80.01 - Phlebitis and thrombophlebitis of superficial veins right leg TECHNIQUE: Lower extremity corrales scale and Duplex Doppler evaluation of the deep venous system from the inguinal ligament through the calf veins. FINDINGS: REGION: Right lower extremity. THROMBI: Negative for DVT. Heat induced thrombus in right AASV 3.7 cm from SFJ and extends to mid thigh. COMPRESSIBILITY: Non-compressible segments corresponding to thrombus FLOW: Areas of no flow corresponding to thrombus OTHER: CONCLUSION: 1. Successful post ablation occlusion of right anterior accessory saphenous vein. Dictated by: Heriberto Barnes M.D. on 02/20/2024 at 15:22 Approved by: Heriberto Barnes M.D. on 02/20/2024 at 15:23
--- NOTE | 2024-02-20 14:35 | VEIN_ITS ---
Patient Name: ANUPAMA CARDOSO MR#: [id number] : 1965 Exam Date: 02/20/2024 Ordering Doctor: DR FRANCES LEWIS M.D. RADIOLOGY REPORT PROCEDURE: [facility] - OFFICE VISIT FOLLOW [facility] PROGRESS NOTES: The patient reports improvement in leg symptoms. There has been interval reduction in varicosities. The patient has followed our recommendations to walk 20-30 minutes once or twice per day since the procedure. Physical exam demonstrates decrease in varicosities of the leg. Persistent varicose veins, reticular veins and spider veins are identified along the legs bilaterally. Review of the ultrasound performed the same day demonstrates occlusive thrombus extending throughout the treated vein(s), see separate report, consistent with a successful ablation. No thrombus extending into or beyond the saphenofemoral junction. The patient expressed a desire to proceed with treatment of remaining incompetent varicosities, reticular veins and spider veins scattered along legs bilaterally.. The patient was informed that treatment was a process and would require several procedures/sessions. VEIN/[facility] EST TD IMPRESSION: 1. Successful ablation of the right anterior accessory saphenous vein(s). 2. Persistent varicose veins, reticular veins and spider veins and lower extremity symptoms. PLAN: 1. Microfoam chemical ablation of left leg incompetent and dilated branch saphenous varicosities. Nurse notes, history and physical were reviewed and confirmed, see attached forms. The nurse was present throughout the physical exam and consultation Dictated by: Heriberto Barnes M.D. on 02/20/2024 at 15:23 Approved by: Heriberto Barnes M.D. on 02/20/2024 at 15:25
--- OUTSIDE RECORDS SUMMARY | 2024-02-20 14:48 | XMS_ITS | CCD ---
Author Organization [facility] Inform ion Partnership [facility] Care Team Providers Care Supervisor Coke Handling Name Role Phone Paola ALEXANDER Primary Care Physician PAOLA ALEXANDER Attending PAOLA Kahn Attending Eddiab Charley Rodriguez Attending Charley Padgett Admitting Unavailable Medications Current Medications Medication Drug Class(es) Dates [...] 24hrs, # 18 tab(s), Refills(s) 1, Pharmacy: [facility], 170, cm, 08/24/21 [...] Test Name Value Interpretation Reference Range Facility Glu Fastingon 02-18-2024 Glucose [Mass/Vol] 86 mg/dL Normal 55-99 [facility] Comment on above: Performed By: #### 2 [id number] #### [facility] [address] [place] [address] Lipid Panelon 02-18-2024 Cholesterol [Mass/Vol] 164 mg/dL Normal 120-200 [facility] Comment on above: Performed By: #### 2 [id number] #### [facility] [address] [place] [address] Cholesterol in HDL [Mass/Vol] 50 mg/dL Invalid Interpretation Code [facility] Comment on above: Result Comment: '>= 60 LOW RISK' '<= 40 HIGH RISK' Performed By: #### 2 [id number] #### [facility] [address] [place] [address] Cholesterol in LDL [Mass/Vol] 102 mg/dL Normal <=129 [facility] Comment on above: Performed By: #### 2 [id number] #### [facility] [address] [place] [address] Cholesterol in VLDL [Mass/Vol] 19 mg/dL Normal 7-40 [facility] Comment on above: Performed By: #### 2 [id number] #### [facility] [address] [place] [address] Triglyceride [Mass/Vol] 95 mg/dL Normal <=149 [facility] Comment on above: Performed By: #### 2 [id number] #### [facility] [address] [place] [address] CHEMISTRYOrdered By: SYSTEM SYSTEM on 07-11-2023 TSH Qn 1.44 m[IU]/L Normal 0.34 - 5.60 mcIU/mL Remisol Chem Physician Orderon 06-07-2023 Physician Order [id number] TIFF Normal [facility] Coding Summary.on 06-15-2022 Coding Summary. [id number]+PGh lYWQ+NK4HDDWxL4 7mnBIlbA2UC6aRP L1OJSEGCWIVAO3C TB1vmIB4DCxbN4N ybiAv NoqwyCEyHT10CEa 2JUK0dLhtBCrzhO 4onMKgY6c1JlTcI D92sX15OEjhMTEx CjI0XeWvlybrtBC y Q3uzHbQphKClYek +PHRhYmxlIHdpZH RoPScxMDAlJyBzd PsiIT7aLl8pDWQh LWNvbGxhcHNlOiB j l1ooUCSvIVqqTY2 wrImtN4MwdHG9YH Ccy0t7Bw16rRI+P UPkYPS9fKsoSUjc h877PeCes0uaNOO 3 hDMhDSeuJIM2R95 at1Q1XHZrTQKaZN I9bHT0zD8ndEvnu bcrO9XvrGJqYuL6 VIN1fHCnlH4gmJp n zysfcL2rKaz+Q09 QUL5BWOCDPQ8STo k6K4RxVchqjGU+P V77YLNeIN63vXIn vMIms5yjfQt8WhQ w UPLiNUY5nTmnENn jq3VpLTDlG92bpA Uge6Q6DJGhcJmfx JUgGhAyzYC7aP2u UBzpuqqle5xfusz n Facrn2jhxe68vO6 9Y84kFBizSSPaZT U1SKBlPJOpxKaqv f2anA8dKv9+IDxj q2svm6rikYa3GnR w JSIgdmFsaWduPSJ 9r0VdRm59E3KrcJ bqu1WlJue6oe48h RLhx8H0jBZ6LInr AQEtjW8oNYwuAaR 6 ERZrThZtvK30wTI tPMtnUf7ieCdidO juMH7cGBHhgjacV SUguP2pMTAemZHf rRayMM0nFOPuhqt m t473MqTdPQH0CCN seGCoN4UjzC4vSs SnTWLmGJVjE6Lig FFtPMbeA277DDis DaP8EDVzogXnH2H s WOTdcGayZyR4e4Y 0Hs6Vu1XakdgdAI G6YYloFFMaYtG2P rHcTeE5U7FgBqx7 LJDsmRsnFR7qW9O h ZGRpbmctcmlnaHQ 2YHEbBZJaoL38zU PyRMibSi4kx7Q0e 574YQUeYJLxyG63 Vq6riIanDVVrcSP U zA6heyyzk4wbhwh qSgXuTQUdRLw0WR a7JQNrcSiqNeEmL YO1JkD0KIA4tFKr aV0xlNklmssyjQ0 w Oyc+F71gxS2tHKU 4RDE0qqflARFujf BaDE57QL13M3WdD jwvdGFibGU+PGRp twHoySbmXH9vWsM j d3xwh6WxSKqnJ5O lEKPrJEhrNjw2OB DpDVL5nXA2bU8pE YWqNWqze9V5mYX1 N1OjlvBwdk9hl1l s BCFvKFzbP46iiUY ce1K9LQRjmGT8EE PpvXavKpZvcS49Z yc+KUMkcXakk3St Qxdid6avl4imxHz 9 IjMwJSIgdmFsaWd hVEX1o5XcMl80T0 9sIHdpZHRoPSIxN DUyTIMsuLhgin7u uM2qTm7+PGNvbCB 3 fRD2tT8hKSOcGbS 1ZUboD278UeKakT MkAblpi9ufz4bno Xl2DaAtYMYbqmYa hGsjQVG2t4ZpTf3 8 I55fYKuhVBInANJ yMCUiIHZhbGlnbj 5arH9nFv3+PC9jb 4mbno12qC42hWI+ QQNkIOK4pEepLAk w KPMrfT6mKZxaEvM 7SHEiAiGypO43nQ IvIJhwWg2rrMfxx AueSU1jSYLmwned u600ViYip1yfXTV w gCUiQMauMPK0D67 fy1Q2SZWuGNJmTM T4tIP1vF4djKrox jogbGVmdDsgdmVy qNhxXNdvQDiwJ12 6 IHRvcDsnPlBhdGl lsrUfHzJbUOz9M1 ShBmw2OTWjqBpzJ I5fbWLhFSjaYc8j wSysiRwyDO4vQSO p dfltr783QvVta7f kIDEwcHQgVGltZX O7H81ou5R5YUMcS DPlRDB3lLF0aO7e bGlnbjogbGVmdDs g dmVydGljYWwtYWx cU578EVFdpRbeHh FllbJfWFFsdEX3K V72WF77dIKhq6A7 dEQ2K2BdHZEuvaw t oqxpqLD2SZPzHQS wiP22Ni7dfNcyVk 2cTXEnSXJ0QPKhv MEeI0FmeH7bIqCd HQTwEAHzK4XhhSC t YCfaY566QHkkVaD 3GUQfdnYeT3KnIS NrgEsbZlR7h6E8Z g6HN7F7DF27GZ89 cLGdo1G3zWM7Q3R h ZGRpbmctcmlnaHQ 8DWOcSHFbnM01Io 5ndAxwTc6yMETlL ZT5MKMqxGFwQ7Ar eS0fWdQdEANtAUI w Z6SpjBVeNXlmU83 9DEzcSfJ6RYTscq VrE9HkFLRluZgwR tE9m0X5Pk1AOKv9 OO25PF92pMQyj7J 5 rLC3Q8YrMMVgcze vehpwvPC7UWZhJQ QaiE89Cr3lxElmH k2xDIPvQZR4VNLl jHOhS5ZzwW3kFgV j ZICxANUpH6GqpUJ vMEkdB167VSdsFc K7LMLmtmDaQ0HqC NNztIjqMvL7q9A5 Nq0ZWVSmMA67COB 5 hVH0QS99BV42N0W yPjwvdGFibGU+PH RhYmxlIHdpZHRoP ScxMDAlJyBzdHls DF5tYr6qZVKkJYQ v rNnodRNgEiOcx5s hXYEhDYtrPW4ngT qqA6RjyRN0MNDrj 7a7Xh13A44gX7Xp dXA+JQAlrSM9pTE 0 mF6sFsHeSlX1ZDm kT222KnKxmUMoMn kbm4adx6jtoVg1V eA8FLUeiuSfjFbj DDQ6d6FwDq66G72 s IHdpZHRoPSIxNSU lPOWhkUmlyq2qhD 9wIi8+GXOsrXZ9l HJ1sQ3tSaBzAyW7 BDsfC888ZpKkuEC v Ytwwr1maa1auwVb 9IjIwJSIgdmFsaW hbMWL7c5HnBf36Z 8IsgPyrv8VsKnf5 mm42oTCid8A4wOY 9 T9YnZBCcwyghpJB ibWokAB0zCAOcyv rrXVTrcE9xMCDtQ 4c3AnJwMeI9PKzm L0HuodE1ECBsxWC g MChsTUO3W39wb6J 3IJFnHVHxJCJ7xU I0oK7pwQhsovnhv GVmdDsgdmVydGlj VDajRXtjX797QQF v zSsgDVTqrU6jUOZ dcDXuyXbwGH8vOJ BpbjsnPlJPVEhIQ UFSLCBLQVRITEVF InHQOA29WG18qPP g k6H3eUN0Q7TrPNF edwmeiydkqNS5HJ ZrQFZwvK80bYUnM FvzXy0uu7Z3r353 RWGsRPZrkR85Tf0 u dDogMTBwdCBUaW1 edrxtz0anrkliDn NkZXWzWTw2POx8S WFsaWduOiBsZWZ0 NjB8PQR1vKTbbL7 h tVeghywibG5uRsx +ZRZaSKwhLDf7Lo wvdGQ+YTUzLVB5r ZlhXZcwDWPhoD2x TNXfQ9e3VgNdEuL 1 ZOfvZ9KsDEGctgb eVx25aY3oSxLzRf G2DUprG6DgwbW7Y DEwcHQgVGltZXM7 Y32ki7Q4TDOcTSJ w WXV3eIM1eA2twLa nbjogbGVmdDsgdm VydGljYWwtYWxpZ 006DURfwGcgDsM0 EAtoPQHwSI87RW5 8 iPJkh3K5bUN3R9B hZGRpbmctcmlnaH D0HAMoPNUysQ01q JUwUXciNe5pn1W7 j329NIAcTMZdjE7 7 Fq9qdFlvSUStrTB UvW5jdkaga3fqpz szBuQeLTZlSEf0X Qg7LTMnwBvwQtDm CHB7ZpA5DUS3wOS h qL2xsBtiriollN1 wOyc+RmVtYWxlPC 53XK85lPBcc1P1l DG0J7KhRJQmnamk phlzyHI1JDOoROA w dN76qCQaQJugWy9 ko1N2k799PVMpJM SspN78Bd9hgImwC PDgdDIVqR4kunez h5krweqhCnZdYRR w LMh3DRa3QQEfiTl jXeViSQW7UeR5AQ W5oVEdtS9yiKdxp vdudR7hDag+T3V0 dUX5lRAbvTxtaPR + MA87qm72Z6HjUbj vRjj1ZAImGQM4mZ W2jO0iBNPvUVoqt 3Q9vIZ6Y6ZfbwYr zs5vo7urZRZrFHd g U19viGPpx3E1AWY xgVY3WOXomFshPf MvtN00Xaf+PGNvb Slfn9NyAjydd2ye b0vfhAx2JeSzWGF g wcFneNquUOC0e1B nNi76K86wLQldBH RoPSIzMCUiIHZhb Qlccz9tcW3xXs8+ WYIclHW0lQH4kK3 i KvLyZzC2OOqtQ76 9EoZmhATtGdvzw4 lwr2zykMf8BwBpB SIgdmFsaWduPSJ0 v2AvYu53D8EuaKk y g1AnNzk0vw03hSM di0A5bUQ5V3BtTA RpbmctbGVmdDogM B9xNQXzslxlSKOw hX7yVHZuE2k6LnL w ElN9DOalN1VcxmJ 6IGJvbGQgMTBwdC CYeC5bqygaa9mmc jogIzAwMDAwMDt0 RYs1GSZnbIydVvB s AGM5VbF5EVH2aKD zbB0nbKslxllfvP 9wOyc+GId2e2wxq DOhZK7ypNH6SA83 SX61cAXki9Z3yNE 9 I5JeAYVoefmrtfo mkYO2ZHQuNEIbkF 44Ax5dyDmwUn2nH NKrGZC0TXBlfDWy O1TmoT9pAvKyOPH w KRLqD8VjsERwDJy vX005MRndKgH9MO GjrhSoV7RoJNYmc OitUqN6h0T1Gt9T SV82EV31AQ93fJY g l6B5qRS6K6UfWGG ceensqcnrrTD0IS HlIUIzdF45Cc2by BguAs7rEFOwDJT3 ZUZexSQsG3PqxQ7 y MqVaOKJtMHOuZ3W zoDUmDMudV347NZ qmYvZ3YOXgqyMzX 4PpZSMqaTmjXjM2 t2T6Oy8AJe45XC3 0 BU25gBVrj9S6lEY 4C7IqJCMbihtqgz uqfXW0QYKsTEUqz E61Cq6dxTugYx3m XZTiXKS8AAWhyXS z E4DofR8sXgBbEUQ vANFeM8TdbJRbZO kqO279KRsrKiQ8N UIslrUoO6NdRNAm gEipHjR2b6G6Ot6 Q RXoeqhx1P2WvSap vdHI+XQ01OVKaDN 01oHSbdLWii7nse Pb0FlJlXUXyNYR0 vRwiVSzyd3QrMYL t Y29s (more content not included)... Normal [facility] CHEMISTRYOrdered By: SYSTEM SYSTEM on 06-09-2022 [...] 26 mmol/L Normal 21 - 31 mmol/L [facility] Remisol Creatinine [Mass/Vol] 0.8 mg/dL Normal 0.5 - 1.3 mg/dL [facility] Remisol GFR/1.73 sq M.predicted among blacks MDRD (S/P/Bld) [Vol rate/Area] mL/min/1.73 m2 Normal >=59mL/min/1.7 3 m2 FT Chem S GFR/1.73 sq M.predicted among non-blacks MDRD (S/P/Bld) [Vol rate/Area] mL/min/1.73 m2 Normal >=59mL/min/1.7 3 m2 FT Chem S Globulin (S) [Mass/Vol] 3.5 g/dL Normal 1.4 - 4.0 gm/dL [facility] Remisol Glucose [Mass/Vol] 98 mg/dL Normal 55 - 199 mg/dL [facility] Remisol Potassium [Moles/Vol] 4.4 mmol/L Normal 3.5 - 5.3 mmol/L [facility] Remisol Protein [Mass/Vol] 7.9 g/dL High 6.0 - 7.8 gm/dL [facility] Remisol Sodium [Moles/Vol] 136 mmol/L Normal 135 - 145 mmol/L [facility] Remisol Triglyceride [Mass/Vol] 69 mg/dL Normal <=149mg/dL [facility] Remisol TSH Qn 0.75 m[IU]/L Normal 0.34 - 5.60 mcIU/mL [facility] Rem[facility] Urea nitrogen [Mass/Vol] 14 mg/dL Normal 5 - 21 mg/dL [facility] Remisol Urea nitrogen/Creatinine [Mass ratio] 18 mg/mg [...] 29.2 pg Normal 27.0 - 34.0 pg [facility] HemeAutoSS MCHC (RBC) [Mass/Vol] 32.0 g/dL Normal 31.4 - 36.0 gm/dL [facility] HemeAutoSS MCV (RBC) [Entitic vol] 91.1 fL Normal 80.0 - 100.0 fL [facility] HemeAutoSS Platelet mean volume (Bld) [Entitic vol] 10.3 fL Normal 6.4 - 10.8 fL [facility] HemeAut oSS Platelets (Bld) [#/Vol] 219.0 E9/L Normal 150.0 - 500.0 E9/L [facility] HemeAutoSS RBC (Bld) [#/Vol] 4.7 E12/L Normal 4.3 - 5.9 E12/L [facility] HemeAutoSS WBC corrected for nucl RBC Auto (Bld) [#/Vol] 5.7 E9/L Normal 4.0 - 11.0 E9/L [facility] HemeAutoSS Encounters Encounter Date Encounter Type Care Provider Facility Start: 02-18-2024 End: 02-18-2024 ambulatory Charley BARNETT Facility:[facility] Start: 09-18-2023 End: 09-18-2023 ambulatory PAOLA ARANAILLER Not Available Start: 08-21-2023 End: 08-21-2023 ambulatory PAOLA A DONNAMILLER Not Available Start: 07-11-2023 End: 07-11-2023 Patient encounter procedure Jonnathan Miranda [facility] Start: 06-09-2022 End: 06-09-2022 Patient encounter procedure Jonnathan Miranda [facility] Start: 05-10-2022 End: 05-10-2022 Lab Drop off Jonnathan Miranda [facility] Procedures Date Procedure Procedure Detail Performing [...] Immunizations Immunization Date Immunization Notes Care Provider Nicola chicas 03-23-2022 influenza virus vaccine, unspecified formulation Jonnathan Miranda [facility] Comment on above: Result Comment: R melva m - Lot#[id number] - Exp 12/18/2022 04-29-2021 influenza virus vaccine, unspecified formulation Jonnathan Miranda [facility] 04-01-2021 influenza virus vaccine, unspecified formulation Jonnathan Miranda [facility] 05-16-2020 zoster vaccine, live Jonnathan Maddison asten [facility] 02-23-2020 zoster vaccine, live Jonnathan K asten [facility] 02-20-2020 influenza virus vaccine, unspecified formulation Jonnathan Miranda [facility] Payers Date Payer Category Payer Unknown [id number] 1965 Unknown [id number] 1965 Unknown [id number] [id number] [id number] 1965 Unknown [id number] Social History Date Type Detail Facility Start: 08-24-2021 Tobacco smoking status Never s moked tobacco (finding) [facility] Tobacco smoking status Never [facility] Sex Assigned At Female [facility] Evaluation + Plan note Radiology Note Date & Type Note Facility Evaluation + Plan note Future Appointments Appointment Date:06/19/2022 03:00:00 PM Scheduled Provider: Location:.BD Appointment Type:BD Bone Density (FT) Appointment Date:06/19/2022 03:30:00 PM Scheduled Provider: Location:.MAMMOGRAM Appointment Type:MA Screen (FT) Future Scheduled TestsBD Bone Density DEXA 06/19/22MA Mamm Screen w/CAD if perf and 3D Yosi 06/19/22 [facility] Hospital course Narrative Note Date & Type Note Facility Hospital course Narrative No data available for this section [facility] Hospital Discharge instructions Note Date & Type Note Facility Hospital Discharge instructions No data available for this section [facility] Progress note Note Date & Type Note Facility Progress note No data available for this section [facility] Summary Purpose Family History No Family History Records Found No data available for this section No Family History Records FoundNo Family History Records FoundNo Family History Records Found Advance Directives No Advanced Directives Records FoundNo Advanced Directives Records FoundNo Advanced Directives Records FoundNo Advanced Directives Records Found Additional Source Comments Patient Care team informatio n (unrecognized section and content) Personnel Name: Paola ALEXNADER CNP Address: Address: [address] Personnel Name: Paola ALEXANDER CNP Address: Address: [address] Personnel Name: Paola ALEXANDER CNP Address: Address: [place] [address]- INFORMATION SOURCE (unrecogn ized section and content) DATE CREATED AUTHOR 06/10/2023 [facility] DATE CREATED AUTHOR AUTHOR'S ORGANIZ ATION 09/19/2023 [facility] DATE CREATED AUTHOR AUTHOR'S ORGANIZ ATION 02/19/2024 [facility] FOR RECORDS PERTAINING TO PATIENTS WHO ARE [...] BE BASED ON THE PRIMARY CLINICAL RECORDS. [employer] [facility]. provides no warranty or guarantee of the accuracy or completeness of information in this document.
--- NOTE | 2024-02-20 15:02 | V.VEINS.HP ---
Vital Signs 02/20/24 15:04 Height 5 ft 7 in Weight 81 kg BMI 28.0 Varicose Veins Patient in today for follow up ultrasound of right lower extremity following EVLT of right AASV completed on 02/12/24. Heriberto Miller MD personally performed the services described in this documentation, as scribed by Aliya Menendez RDMS in my presence and it is both accurate and complete. Aliya Miller RDMS, am scribing for, and in the presence of, Dr. Jim Barnes and in the presence of the patient. medial thigh: bilateral, knee: bilateral, calf: bilateral, ankle: bilateral and nunes: bilateral sharp, intermittent and tender 6 15+ years Worsened in recent months: Yes standing and sitting bed rest, elevating extremities, compression stockings and other Reports edema, leg edema and other History of lower extremity trauma: No Superficial thrombophlebitis: No Family history of varicose veins: yes Has patient had previous lower extremity venous surgery: No Patient has previously received the following treatment(s) for lower extremity varicose veins: Reports vein ablation (Rt GSV, Rt SSV, Lt GSV) and sclerotherapy Does patient have a history of : yes Does patient intend to have future pregnancies: no Has patient had lower extremity venous scan with relux testing: Yes Support hose used: Yes (15+ years) Problems walking or doing physical activity: No How does it affect you: prolonged sitting required for work Do you walk much: Yes Do you stand much: Yes Medication compliance: good Large amounts of Vitamin K: No Review of Systems ROS Narrative Heriberto Miller MD personally performed the services described in this documentation, as scribed by Aliya Menendez RDMS in my presence and it is both accurate and complete. Aliya Miller RDMS, am scribing for, and in the presence of, Dr. Jim Barnes and in the presence of the patient. Status of ROS 10 or more systems reviewed and unremarkable except as noted in history and below Cardiovascular Reports: edema, swelling of feet/ankles and leg pain with exertion Musculoskeletal Reports: extremity pain, extremity swelling and muscle cramps Integumentary/Breast Reports: itching, skin pain, skin tenderness, skin swelling and changes in skin color [facility] Medical History (Updated 01/29/24 @ 07:47 by Rj Mathur) Phlebitis of superficial vein of left lower extremity ?I80.02 - Phlebitis and thrombophlebitis of superficial vessels of left lower extremity (ICD-10) Phlebitis and thrombophlebitis of superficial vessels of right lower extremity ?I80.01 - Phlebitis and thrombophlebitis of superficial vessels of right lower extremity (ICD-10) Parity 3 ?Z87.898 - Personal history of other specified conditions (ICD-10) 4 Onychomycosis ?B35.1 - Tinea unguium (ICD-10) Hypothyroidism ?E03.9 - Hypothyroidism, unspecified (ICD-10) Depression ?F32.A - Depression, unspecified (ICD-10) Varicose veins of bilateral lower extremities with pain ?I83.813 - Varicose veins of bilateral lower extremities with pain (ICD-10) Migraine ?G43.909 - Migraine, unspecified, not intractable, without status migrainosus (ICD-10) Telangiectasia ?I78.1 - Nevus, non-neoplastic (ICD-10) Surgical History (Updated 12/31/23 @ 15:28 by Roma Arevalo) Status post laser ablation of incompetent vein ?Z98.890 - Other specified postprocedural states (ICD-10) S/P sclerotherapy of varicose veins ?Z98.890 - Other specified postprocedural states (ICD-10) ?Z86.79 - Personal history of other diseases of the circulatory system (ICD-10) History of laparoscopy-assisted vaginal hysterectomy ?Z90.710 - Acquired absence of both cervix and uterus (ICD-10) Previous section ?Z98.891 - History of uterine scar from previous surgery (ICD-10) Family History (Updated 12/31/23 @ 15:22 by Roma Arevalo) Father Family history of cancer Family history of hypertension Mother Family history of hypertension Varicose veins of bilateral lower extremities with pain Social History (Updated 12/31/23 @ 15:22 by Roma Arevalo) Within the past year, how often did you have a drink containing alcohol: 2-4 times a month Smoking status: Never smoker Non-prescribed substance use: denies use Meds Home Medications and Allergies Home Medications ?Medication ?Instructions ?Recorded ?Confirmed ?Type albuterol 90 mcg-budesonide 80 2 inh inhalation DAILY PRN 12/31/23 12/31/23 History mcg/actuation HFA aerosol inhaler shortness of breath (Airsupra) amoxicillin 875 mg-potassium 1 tab PO BID 12/31/23 12/31/23 History clavulanate 125 mg tablet atogepant 60 mg tablet (Qulipta) 60 mg PO DAILY 12/31/23 12/31/23 History fluoxetine 20 mg capsule 20 mg PO DAILY 12/31/23 12/31/23 History levothyroxine 75 mcg tablet 75 mcg PO DAILY 12/31/23 12/31/23 History (Euthyrox) rizatriptan 10 mg tablet (Maxalt) See Rx Instructions PO .COMPLEX 12/31/23 12/31/23 History terbinafine HCl 250 mg tablet 250 mg PO DAILY 12/31/23 12/31/23 History ubrogepant 100 mg tablet (Ubrelvy) mg 12/31/23 History Allergies Allergy/AdvReac Type Severity Reaction Status Date / Time No Known Drug Allergies Allergy Verified 10/19/23 15:25 Exam Narrative Exam Narrative: Patient has no compliants today. Heriberto Miller MD personally performed the services described in this documentation, as scribed by Aliya Menendez RDMS in my presence and it is both accurate and complete. IAliya RDMS, am scribing for, and in the presence of, Dr. Jim Barnes and in the presence of the patient. Constitutional Documenting provider has reviewed patient's vital signs: yes Common normals: oriented x3 Lymph Lymphatic: no lymphedema noted Cardio Common normals: regular rate Rate: regular rate Peripheral pulses: posterior tibial pulses present and dorsalis pedis pulses present Extremity Common normals: normal capillary refill General: calf tenderness and edema Right lower extremity: upper leg and lower leg Left lower extremity: upper leg and lower leg Neuro Common normals: oriented x3 Results Imaging Venous US: Radiologist's impression: Heat induced thrombus in right AASV 3.7 cm from SFJ and extends to mid thigh. Heriberto Miller MD personally performed the services described in this documentation, as scribed by Aliya Menendez RDMS in my presence and it is both accurate and complete. Aliya Miller RDMS, am scribing for, and in the presence of, Dr. Jim Barnes and in the presence of the patient. Assessment and Plan Assessment and Plan (1) Phlebitis and thrombophlebitis of superficial vessels of right lower extremity: Plan Plan is for patient to return for Varithena/microfoam of left leg on 03/12/24. IHeriberto MD personally performed the services described in this documentation, as scribed by Aliya Menendez RDMS in my presence and it is both accurate and complete. Angela, Aliya Menendez RDMS, am scribing for, and in the presence of, Dr. Jim Barnes and in the presence of the patient.
[2024-02-20 15:04] VITALS: BMI 28.0
--- NOTE | 2024-02-20 15:11 | P.DS_ITS ---
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
--- NOTE | 2024-02-20 15:11 | W.VEIN ---
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
== END 2024-02-20 15:15 | disposition home or self-care (01) ==
PROVIDERS: PCP Radiology Diagnostic Radiology; Visit Provider Radiology Diagnostic Radiology
DX: I80.01 Phlebitis and thrombophlebitis of superficial vessels of right lower extremity (principal)
CPT/HCPCS: 93971; G0463

== ENCOUNTER 2024-03-12 14:30 | Outpatient (OUT) | payer OTHER, SELFPAY ==
--- NOTE | 2024-03-10 10:39 | VEINCLINIC_ITS ---
Vital Signs 03/12/24 14:35 BP 118/60 BP Location Right Brachial BP Position Sitting BP Cuff Size Adult BP Source Manual Cuff Respiration 16 Pulse 70 Pulse Source Monitor Pulse Oximetry (%) 96 Oxygen Delivery Method Room Air Varicose Veins Patient in today for microfoam chemical ablation left leg. Delbert Miller MD personally performed the services described in this documentation, as scribed by Rj Mathur RN in my presence and it is both accurate and complete. IRj RN, am scribing for, and in the presence of, Dr. Delbert Rosa and in the presence of the patient. medial thigh: bilateral, knee: bilateral, calf: bilateral, ankle: bilateral and nunes: bilateral sharp, intermittent and tender 6 15+ years Worsened in recent months: Yes standing and sitting bed rest, elevating extremities, compression stockings and other Reports edema, leg edema and other History of lower extremity trauma: No Superficial thrombophlebitis: No Family history of varicose veins: yes Has patient had previous lower extremity venous surgery: No Patient has previously received the following treatment(s) for lower extremity varicose veins: Reports vein ablation (Rt GSV, Rt SSV, Lt GSV) and sclerotherapy Does patient have a history of : yes Does patient intend to have future pregnancies: no Has patient had lower extremity venous scan with relux testing: Yes Support hose used: Yes (15+ years) Problems walking or doing physical activity: No How does it affect you: prolonged sitting required for work Do you walk much: Yes Do you stand much: Yes Medication compliance: good Large amounts of Vitamin K: No Review of Systems ROS Narrative Delbert Miller MD personally performed the services described in this documentation, as scribed by Rj Mathur RN in my presence and it is both accurate and complete. Rj Miller RN, am scribing for, and in the presence of, Dr. Delbert Rosa and in the presence of the patient. Status of ROS 10 or more systems reviewed and unremark able except as noted in history and below Cardiovascular Reports: edema, swelling of feet/ankles and leg pain with exertion Musculoskeletal Reports: extremity pain, extremity swelling and muscle cramps Integumentary/Breast Reports: itching, skin pain, skin tenderness, skin swelling and changes in skin color PFSH PFS Medical History (Updated 01/29/24 @ 07:47 by Rj Mathur) Phlebitis of superficial vein of left lower extremity ?I80.02 - Phlebitis and thrombophlebitis of superficial vessels of left lower extremity (ICD-10) Phlebitis and thrombophlebitis of superficial vessels of right lower extremity ?I80.01 - Phlebitis and thrombophlebitis of superficial vessels of right lower extremity (ICD-10) Parity 3 ?Z87.898 - Personal history of other specified conditions (ICD-10) 4 Onychomycosis ?B35.1 - Tinea unguium (ICD-10) Hypothyroidism ?E03.9 - Hypothyroidism, unspecified (ICD-10) Depression ?F32.A - Depression, unspecified (ICD-10) Varicose veins of bilateral lower extremities with pain ?I83.813 - Varicose veins of bilateral lower extremities with pain (ICD-10) Migraine ?G43.909 - Migraine, unspecified, not intractable, without status migrainosus (ICD-10) Telangiectasia ?I78.1 - Nevus, non-neoplastic (ICD-10) Surgical History (Updated 03/10/24 @ 10:40 by Rj Mathur) Status post laser ablation of incompetent vein ?Z98.890 - Other specified postprocedural states (ICD-10) S/P sclerotherapy of varicose veins ?Z98.890 - Other specified postprocedural states (ICD-10) ?Z86.79 - Personal history of other diseases of the circulatory system (ICD- 10) History of laparoscopy-assisted vaginal hysterectomy ?Z90.710 - Acquired absence of both cervix and uterus (ICD-10) Previous section ?Z98.891 - History of uterine scar from previous surgery (ICD-10) Family History (Updated 12/31/23 @ 15:22 by Roma Arevalo) Father Family history of cancer Family history of hypertension Mother Family history of hypertension Varicose veins of bilateral lower extremities with pain Social History (Updated 12/31/23 @ 15:22 by Roma Arevalo) Within the past year, how often did you have a drink containing alcohol: 2-4 times a month Smoking status: Never smoker Non-prescribed substance use: denies use Meds Home Medications and Allergies Home Medications ?Medication ?Instructions ?Recorded ?Confirmed ?Type albuterol 90 mcg-budesonide 80 2 inh inhalation DAILY PRN 12/31/23 12/31/23 History mcg/actuation HFA aerosol inhaler shortness of breath (Airsupra) amoxicillin 875 mg-potassium 1 tab PO BID 12/31/23 12/31/23 History clavulanate 125 mg tablet atogepant 60 mg tablet (Qulipta) 60 mg PO DAILY 12/31/23 12/31/23 History fluoxetine 20 mg capsule 20 mg PO DAILY 12/31/23 12/31/23 History levothyroxine 75 mcg tablet 75 mcg PO DAILY 12/31/23 12/31/23 History (Euthyrox) rizatriptan 10 mg tablet (Maxalt) See Rx Instructions PO .COMPLEX 12/31/23 12/31/23 History terbinafine HCl 250 mg tablet 250 mg PO DAILY 12/31/23 12/31/23 History ubrogepant 100 mg tablet (Ubrelvy) mg 12/31/23 History Allergies Allergy/AdvReac Type Severity Reaction Status Date / Time No Known Drug Allergies Allergy Verified 10/19/23 15:25 Exam Narrative Exam Narrative: Delbert Miller MD personally performed the services described in this documentation, as scribed by Rj Mathur RN in my presence and it is both accurate and complete. Rj Miller RN, am scribing for, and in the presence of, Dr. Delbert Rosa and in the presence of the patient. Constitutional Documenting provider has reviewed patient's vital signs: yes Common normals: oriented x3 Lymph Lymphatic: no lymphedema noted Cardio Common normals: regular rate Rate: regular rate Peripheral pulses: posterior tibial pulses present and dorsalis pedis pulses present Extremity Common normals: normal capillary refill General: calf tenderness and edema Right lower extremity: upper leg and lower leg Left lower extremity: upper leg and lower leg Neuro Common normals: oriented x3 Assessment and Plan Assessment and Plan (1) Varicose veins of bilateral lower extremities with pain: Plan f/u evaluation with physician along with left leg limited u/s Delbert Miller MD personally performed the services described in this documentation, as scribed by Rj Mathur RN in my presence and it is both accurate and complete. Rj Miller RN, am scribing for, and in the presence of, Dr. Delbert Rosa and in the presence of the patient. Procedures Procedure Instructions Procedures Left leg microfoam chemical ablation/Varithena: Risks and benefits of the procedure were discussed at length and informed written consent was obtained.? Time-out procedure was performed and the correct patient and procedure were confirmed.? Staff present during time-out: Rj Mathur RN and Delbert Rosa MD.? Patient prepped and procedure performed in usual sterile fashion.? Patient was placed in Trendelenburg prior to Polidocanol/Varithena injections. Sclerosing Agent:??13 cc 1% Polidocanol/Varithena Site Injected: left lecc varithena administered in to a 5mm varicose vein distal anterior lower leg 5cc varithena administered in to a 4mm varicose vein medial left knee Number of Injections:?2 The patient tolerated the procedure well without complication.? Hemostasis was obtained and thigh-high compression stocking was applied with foam pads.? Instructed patient to wear stocking for at least 96 hours and sleep with it and only remove for showering.? The patient was instructed to? wear stocking for 2 weeks.? Patient verbalizes understanding and states they will comply.? Patient was given post-procedure instructions. Patient was discharged in good condition.? Scheduled to undergo limited venous ultrasound and? exam on 03/20/2024.
--- NOTE | 2024-03-10 10:42 | W.VEIN ---
Discharge Plan Discharge Disposition: Home, Self-Care Outpatient Diagnostics: [facility] Facility EST LMTD (Routine) Timeframe: 2 Weeks Facility: [facility] - Location: [facility] Ordered By: Delbert Rosa VC EXT Venous LT Limited (Routine) Timeframe: 2 Weeks Facility: [facility] - Location: Vein Center Ordered By: Delbert Rosa Follow Up Appointments: 03/19/2024 Plan of Treatment: f/u evaluation with physician along with left leg limited u/s Patient Instructions: Polidocanol (By injection) (Chet Condonthetimi) Print Language: Ukrainian Discharge Date/Time: 03/12/24 15:44
--- NOTE | 2024-03-12 14:31 | VEIN_ITS ---
[address] [address] Patient Name: ANUPAMA CARDOSO MRN: [id number] date: 1965 Sex: F Assigned Patient Location: Current Patient Location: Accession/Order Number: [id number] Exam Date: 03/12/2024 14:35 Report Date: 03/12/2024 15:29 At the request of: JOSE FISHER Procedure: VC INJ Foam Sclerosant WUS QUAL RESEARCH MANAGER PROCEDURE: VC INJ Foam Sclerosant WUS QUAL RESEARCH MANAGER COMPARISON: None. HISTORY: I83.813 - Varicose veins of bilateral lower extremities w... Pre-operative Diagnosis: CEAP class C3 venous insufficiency with pain, tenderness, edema and incompetent left saphenous and varicose vein(s), chronic venous insufficiency left leg secondary to venous incompetence Post-operative Diagnosis: CEAP class C3 venous insufficiency with pain, tenderness, edema and incompetent left saphenous and varicose vein(s), chronic venous insufficiency left leg secondary to venous incompetence Procedure Performed: 1. Ultrasound-guided microfoam chemical ablation with Varithenaregistered 2. Intraoperative ultrasound guidance Anesthesia: None Indications for Procedure: 58-year-old female who presents with a long history of lower extremity pain and swelling varicose veins of the patient failed conservative medical therapy including medical compression stockings, exercise and analgesics. Prior procedures include endovenous laser ablation. Multiple incompetent varicosities of the left leg. Duplex scan showed reflux and enlarged diameters up to 5 mm. The patient underwent informed consent including management options where the complications of infection, bleeding, pain, and skin injury were discussed. Particular attention was spent discussing thrombus extension and deep vein thrombosis as well as the possibility of pulmonary embolus and treatment with oral or injectable blood thinners. Procedure: The patient walked to the procedure room. All applicable staff donned appropriate apparel. A procedure timeout was performed to confirm correct patient, correct extremity, correct procedure, and correct room set-up including presence of all applicable supplies, devices, and drugs. A duplex ultrasound, performed by myself confirmed the location and incompetence of branch saphenous varicosities and their course was marked on the skin together with the dilated tributaries. The extent of treatment of the vein and the associated varicosities was determined through ultrasound mapping. The skin was prepped and then punctured with a butterfly needle and advanced under ultrasound guidance. The Varithenaregistered canister was activated and the canister was primed and purged as required in the instructions for use. Varithenaregistered was drawn into a sterile syringe. The following injections were made: 8 cc injected into a 5 mm distal anterior left lower leg 5 cc injected into a 4 mm varicose vein medial left leg just below the knee Varithenaregistered was slowly administered at 0.5-1.0 cc/second with close observation by ultrasound of its course in the vessels. Total volume utilized was: 13cc. Following administration of Varithenaregistered the leg was elevated and the patient was asked to repeatedly dorsiflex the ankle to limit flow of Varithenaregistered into perforating veins. Once appropriate spasm had been confirmed in the treated veins, the vascular catheter was removed from the leg and light pressure was applied over the puncture site for hemostasis. The common femoral and deep superficial veins were then evaluated for flow and compressibility prior to dressing placement. The lower extremity was kept elevated at 45 degrees above the horizontal and cording material was applied over the saphenous segments and tributaries to allow for eccentric compression over the target vessels including the targeted saphenous vein(s). A multilayer dressing was applied consisting of foam pads, coban and thigh-high 20-30 mm Hg compression elastic support hose were placed on the patient. The leg was lowered only after compression had been applied and the patient was immediately ambulatory. The patient ambulated 10 minutes under supervision and was without apparent concerns at time of release. Post-care instructions include advising patient to keep post-treatment bandages in place and dry for 48 hours, avoid extended periods of inactivity, avoid heavy exercise for one week, wear compression stockings on the treated leg continuously for two weeks, to walk daily for 10 minutes over the next month. The patient was instructed to take an anti-inflammatory medicine as needed and to follow up for color duplex scan of the Saphenous veins, the treated branch saphenous varicosities, the adjacent deep veins, and additional treatment within 7 days. PERSONNEL: Rj Mathur RN Electronically authenticated by: FRANCES LEWIS Date: 03/12/2024 15:29
[2024-03-12 14:35] VITALS: BP 118/60; PULSE 70; O2SAT 96
--- OUTSIDE RECORDS SUMMARY | 2024-03-12 14:42 | XMS_ITS | CCD ---
Author Organization [facility] Inform ion Partnership [facility] Care Team Providers Care Gym Teacher Name Role Phone Paola ALEXANDER Primary Care [...] 02-18-2024 Glucose [Mass/Vol] 86 mg/dL Normal 55-99 [facility] Comment on above: Performed By: #### 2 [id number] #### [facility] [address] [place] [address] Lipid Panelon 02-18-2024 Cholesterol [Mass/Vol] 164 mg/dL Normal 120-200 [facility] Comment on above: Performed By: #### 2 [id number] #### [facility] [address] [place] [address] Cholesterol in HDL [Mass/Vol] 50 mg/dL Invalid Interpretation Code [facility] Comment on above: Result Comment: '>= 60 LOW RISK' '<= 40 HIGH RISK' Performed By: #### 2 [id number] #### [facility] [address] [place] [address] Cholesterol in LDL [Mass/Vol] 102 mg/dL Normal <=129 [facility] Comment on above: Performed By: #### 2 [id number] #### [facility] [address] [place] [address] Cholesterol in VLDL [Mass/Vol] 19 mg/dL Normal 7-40 [facility] Comment on above: Performed By: #### 2 [id number] #### [facility] [address] [place] [address] Triglyceride [Mass/Vol] 95 mg/dL Normal <=149 [facility] Comment on above: Performed By: #### 2 [id number] #### [facility] [address] [place] [address] CHEMISTRYOrdered By: SYSTEM SYSTEM on 07-11-2023 TSH Qn 1.44 m[IU]/L Normal 0.34 - 5.60 mcIU/mL Remisol Chem Physician Orderon 06-07-2023 Physician Order [id number] TIFF Normal [facility] Coding Summary.on 06-15-2022 Coding Summary. CD:[id number] 1881IHt1sLc+PGh lYWQ+IV6TAYAuJ8 6pmDYrlK9OI2hXD B1YCURCUMMGST5E UA0blLB7YJboO8Z ybiAv KqqqzWRfJD75ZEs 5XRT4cUnxGDfoaD 8hhZLrF0e5GjXjA L32lP90XLbrHRNi SjR2CjXaboqjjAB y L7dgIjKlwPEvJep +PHRhYmxlIHdpZH RoPScxMDAlJyBzd DsjJC6lMh3sKUGd LWNvbGxhcHNlOiB j a7qaYXNrVClxXT2 hbUgxS5NtsOT5AL Avd7n5Hi33eJB+P OWuBZO9fWspSHhg y031TuKfh2gqNVD 3 aMAhBMisLWL9H04 et7N5UNInHOItLJ I4cYU4mY0unHwzt weaG6FzzYPbVrT7 ZMU8fHVnbT4feKr n tvgjnC1wWba+Q09 CNI3HAKUPIZ4QWe i0H0CvPwkugFD+P S50SJNyXD41kOXr iTYnj2ufrMm7KhQ w BODrHWP4nOfdTWj ec5QhEZQfO61reG Xtp9P1ZXGjlAiks URkZzFwtLB4lL6w BOrvvnpnv5esoeb n Sxoub9zcmn68pW4 0O42mGPpaNNPpYS G3JGCpIYHydMxth u3abX1xSz4+IDxj o9kys0bvdKg4BmC w JSIgdmFsaWduPSJ 6p1GiTl32D1NjsA drx1UiBaw4jk52h WWer8T8xWU9DQvr GAIikS7bZKhaZrB 6 DYAbOaVudC61zPT qJHshKc9ufIgouZ zwCZ1hALSywamtC FRvcB0hTUZfwTWf hKfzUP8xBQDwyqw m o124BfKiCDL9HUG gjXGjS6DkoI3vMf VzKXKvXXBnH3Mim HDwRSioD256BTno FhI3UNEkorDbO8H s YLEhuMsxZcZ7n2G 0Cb3Vk1IrdgnxDL Q2QUntXCWhChQ5V fBaFaO5D0LeMwc0 SDPgqZsnHM6fZ6B h ZGRpbmctcmlnaHQ 1MZRnKTNvwU80kB GsLYysIw5mn7C9k 266PDAiXODvxQ14 Me1fwRjjQVZefEV U lO3mrpazu6emjsv rJzStRQOiCNs6OC d9YDCmxBlzZnMrD QN8YjW1NCT3kGTk xQ0xoBpmtvfraG4 w Oyc+Y90mkR1jZGU 3AHB1jnuvSQTvxl ReNX35DK25I7RvL jwvdGFibGU+PGRp vkWrsHmuTL2sJyP j u6nec3CpIOpcZ0J fMNYeWIkdMiy5JD NmQWV6iFC1lU6zE RNjMSusk5E3iJW4 I4HtmoNags2wf8s s OLKqGPfhY66ooWZ lo5N0ZAGryRO8FA OjyRkcLkJzqD70C yc+EOUnjRjdq7Pa Hrtiy6xup0tinQm 9 IjMwJSIgdmFsaWd nKZB9k8ElAv24Q5 9sIHdpZHRoPSIxN KPeEYYdaGaser9i rE4oRk4+PGNvbCB 3 xYE7oH0jIOQnOpS 0LVocN210FdUpjF LiBacun1cjz4iud Zp3OuRlOXPgvgVk tOanEEA2o6SjJc1 8 N12cCYlzFFIzGRH yMCUiIHZhbGlnbj 2wsN1tRt0+PC9jb 9yhxz63yR70eUZ+ ZXYmBZI5mBbqFNa w PGGoaA1qQYcyNjJ 4RXLoFuJafY26tT WoECxtXs6hoBjri KkiJE7iANOlwpci k127KyAdd2kgZCD w qRGmLJnmAQE5U64 jp9T0AANmHQTtWM Z1lUN4rL1ysWsuy jogbGVmdDsgdmVy kYycPKfgRQduO14 6 IHRvcDsnPlBhdGl rbxReVyJlNSk0U9 IdCrr8SAGheVrfB S0gzEBzNDjsJu8c cKqnhLdsEE8gADR p zhzbn170VbQgo7a kIDEwcHQgVGltZX C4E79bx8A4CGBoW YAoUHZ8dVO1aZ9h bGlnbjogbGVmdDs g dmVydGljYWwtYWx zW405CGSxqJplXl WfpcDdQGLrtJS1S V25TT01kPKib0L0 nAG8E3KjJLGicqi t jvwtjMD7QQXnKXG lgU02Ln6wlNkjMu 2iKHFkZFL1GAFgq OFmQ3SptA6vQdQy EPBmXPOzO2YivPD t PBmmG264XTmmSzP 1UDAqyhPfW4ShOY DtjFbpFuY3u9C3A i9RO0V3KQ23VM67 dWYcz3S6sZF2G3G h ZGRpbmctcmlnaHQ 4UAHiOCPyyC12Ka 2wgLhsJa6lJBIvB QT4ZKGgeLGiM0Ek uV4qVeQxZAEvZVU w H7DldKZqHUuoU83 8UBuaSnB0RECgpe NnO2CdAHHefPntS aV7j8H8Mt0LCAe8 VC70LV27zNPyv2Z 5 uNP3A6QnZTYnvql ppcrjbJY7AERvCJ LndS34Xv6ggAiuV z0lBYSbTGI2FFYj aALoY2KgbE1kOuQ j OLWgLQBzR1FkaDE lUZiyB789YWdqNk L7RHZaznNnT0DmB EOpePijWkO6r3M7 Uo1KTGBxCX66FWV 5 sSG1ZN27XS82I9K yPjwvdGFibGU+PH RhYmxlIHdpZHRoP ScxMDAlJyBzdHls HA1wDi3fZEYiVTU v lHcjdZVpViWdo3s xGNSxKAscTT6gjC taN1PxxUY2MSEta 5d3Ti67M49mN1Ip dXA+AVJffVK9gGC 0 xF6wLqXlJgK6ZPz mB059RmYowKDfFw fxq3xae3akoBn0N jT0FHMtjoUboNzu OFG8w9KlKl83W64 s IHdpZHRoPSIxNSU oNVGqrAzegd1zaZ 9wIi8+UZAgzQY4k AP6lK0cVwVfUrD5 YMymJ694GqKghBT v Ygfbi0egm0ireDu 9IjIwJSIgdmFsaW mnMAG0c1VlXr14V 4OqrYkcq0MxYzk8 nc76rORac7G1mXP 9 H4XcHOZueempzWU fmRjaWU9sKNSkci ctBNGkaY6oMATkA 6k1UhNnDoT6YIcm A3RxxlM5ZWUlsZU g RJtiSOO3K27ew3B 0ZWXhGKGsEZW7tL D9gL4daTychuzfn GVmdDsgdmVydGlj QPtyMTqpW581NPC v gAfyRFLodX5dEHW srULumZgaOV6tSU BpbjsnPlJPVEhIQ UFSLCBLQVRITEVF ZkWZEQ67FG55nLP g c8Q1jPP0F0SvLRN ybyjlloacqTD6WM CkNHDyeM84pZQbR BziYe8pn7Q7h608 ABCvLUTexV04Bt1 u dDogMTBwdCBUaW1 ewrcby1fzivllZc VuFDDzASk1JSe3Q WFsaWduOiBsZWZ0 ZxS7KBR0bMCcpM4 h kMbsruhrkC8sLxo +SQFoEPcjOIw5Sn wvdGQ+QBTiSTI2a EkhHKjpDOMdmS0s FDRbU0m0DhBzRhZ 1 ZNwcV0VqSAVvmla kMs33hM0iYkXuWx U9QHclG6EpqiJ1Y DEwcHQgVGltZXM7 X32kf9O2MTChFKJ w KIM4pXX4sX5qkDg nbjogbGVmdDsgdm VydGljYWwtYWxpZ 719POKmwWgwNfZ4 DHzzUNXhQV00IN3 8 zNFoe5A7iQS6W3V hZGRpbmctcmlnaH Q4AYMrFERcqX69e AFmHDunCl5sf8V2 v020FVUvXKGwaF5 7 Tk1apFvxJWYmhFO SoV3qltzar0xzpk vhNqWeKAEoZXx6W Il6XOOqeBaxHsUn WWZ3PvN6IKG3yWA h lE2laWwrcedwoC4 wOyc+RmVtYWxlPC 99IW32kBQbp4P3l HW4N6TrELJnkmvh djhueKH8VSVeRQR w xS38oUTbUJrxFu6 wv9U3t935HFLrSD AjoL77Yq6rqMbuC GDeiFVElQ8ksfkd i0lketdpOgQyPVT w QIj3XYu3XXToqGv gBuAgJJI2XqX1VB Q5kXRznZ7riAxuy lhznM0oNrq+T3V0 xPE7zVXtvKecfNB + HT20ye11W1OoHoh yTwt9GAYuSDL6vO P7kI4fTAEyVIrfq 9L8jWR6J0LhmmTm ii9qk7jeVGAzCGd g H59xfPQrn0R5CNS joJB4ZXRpqAikLj IrvR12Kag+PGNvb Eazh4ZnDxelu1yu y7fpgBk9BdHpJDC g yvZqwWvtEDH4n1A qQv78C85aUPxaXX RoPSIzMCUiIHZhb Uqaxu9geP6aYv3+ FQXepUF3dND3eV8 i NhTnEuT0LYumE54 4GbOzlCLpIpvwv8 wwh9ylaBa1GwJrQ SIgdmFsaWduPSJ0 n8FuUh91V5HbpTj y b1FbPha9ef79vRN vh9O1pGO5S9LqLF RpbmctbGVmdDogM B2rDOPbqojdLBJa kB8vVNAmM1h6IzA w OxU8YGdyL5YjvzQ 6IGJvbGQgMTBwdC ZXnF9ergork5wwl jogIzAwMDAwMDt0 NZk2XRTbtPdeAoZ s ASW6EjF2OHZ0uRK ccA2gyIoxneufhL 9wOyc+IUr7p7ocj LMdQB5hcRN8DD27 AR06tMXlo9E8gXZ 9 V1OuMDHxobxbuxe seNW0IIBrIDVzwE 03Ve6eoThdEg0bY POrPAS3OPHelUGf J4BjlV6rCkZuUQF w TBTyK3CldNSrSOr iG467KJocGvI1LF BnjaOqT8ZfPHOyn TyfBnY5p2D1Gc1N IT96YN56GY61oQQ g t2A3eZJ1B0LyTTA sbwcjzjqylWL0NB AdSEMggQ72Ee3kk GppPz2rRIOtMDP6 JCYegYHnL1BczK2 y KeOjRWHbUBGwI0L zyIPjYEiqK321TW vkTeH7GINrlsJpN 7PbGFPifQulAiS4 v8A5Qz9LZm03WR4 0 AQ79zKKdt4F7dYP 9N8GlKHVoiupgbh tjcWA2TBHnKUBsm Y16Pz3uyAlmQc3w JPWuFRY8UBDwnXY z L4KhqT3mPcHfSWM sTAOgD4WvwZQxAZ koY405YXfgWgP1E VEytgGuX0CiIWHq yXtoMaX7n1L4Lz9 Q FQrenre0E9CjWuu vdHI+VJ87NXLoHJ 43jCPcbPKwn6jjw Wt6RbPnIZOkDXQ4 jXwyJGlmo5HcFTD t Y29s (more content not included)... Normal [facility] CHEMISTRYOrdered By: SYSTEM SYSTEM on 06-09-2022 25-hydroxyvitamin [...] 10.3 fL Normal 6.4 - 10.8 fL [facility] HemeAut oSS Platelets (Bld) [#/Vol] 219.0 E9/L Normal 150.0 - 500.0 E9/L [facility] HemeAutoSS RBC (Bld) [#/Vol] 4.7 E12/L Normal 4.3 - 5.9 E12/L [facility] HemeAutoSS WBC corrected for nucl RBC Auto (Bld) [#/Vol] 5.7 E9/L Normal 4.0 - 11.0 E9/L [facility] HemeAutoSS Encounters Encounter Date Encounter Type Care Provider Facility Start: 02-18-2024 End: 02-18-2024 ambulatory Charley BARNETT Facility:[facility] Start: 09-18-2023 End: 09-18-2023 ambulatory PAOLA ARANAILLER Not Available Start: 08-21-2023 End: 08-21-2023 ambulatory PAOLA A DONNAMILLER Not Available Start: 07-11-2023 End: 07-11-2023 Patient encounter procedure Jonnathan Miranda [facility] Start: 06-09-2022 End: 06-09-2022 Patient encounter procedure Jonnathan Miranda [facility] Start: 05-10-2022 End: 05-10-2022 Lab Drop off Jonnathan Miranda [facility] Procedures Date Procedure Procedure Detail [...] influenza virus vaccine, unspecified formulation Jonnathan Miranda [facility] Comment on above: Result Comment: R melva m - Lot#[id number] - Exp 12/18/2022 04-29-2021 influenza virus vaccine, unspecified formulation Jonnathan Miranda [facility] 04-01-2021 influenza virus vaccine, unspecified formulation Jonnathan Miranda [facility] 05-16-2020 zoster vaccine, live Jonnathan Maddison asten [facility] 02-23-2020 zoster vaccine, live Jonnathan K asten [facility] 02-20-2020 influenza virus vaccine, unspecified formulation Jonnathan Miranda [facility] Payers Date Payer Category Payer Unknown [id number] 1965 Unknown [id number] 1965 Unknown [id number] 1965 Unknown [id number] Social History Date Type Detail Facility Start: 08-24-2021 Tobacco smoking status Never s moked tobacco (finding) [facility] Tobacco smoking status Never [facility] Sex Assigned At Female [facility] Evaluation + Plan note Radiology Note Date & Type Note Facility Evaluation + Plan note Future Appointments Appointment Date:06/19/2022 03:00:00 PM Scheduled Provider: Location:.BD Appointment Type:BD Bone Density (FT) Appointment Date:06/19/2022 03:30:00 PM Scheduled Provider: Location:.MAMMOGRAM Appointment Type:MA Screen (FT) Future Scheduled TestsBD Bone Density DEXA 06/19/22MA Mamm Screen w/CAD if perf and 3D Yosi 06/19/22 [facility] Hospital course Narrative Note Date & Type Note Facility Hospital course Narrative No data available for this section [facility] Hospital Discharge instructions Note Date & Type Note Facility Hospital Discharge instructions No data available for this section [facility] Progress note Note Date & Type Note Facility Progress note No data available for this section [facility] Summary Purpose Family History No [...] ALEXANDER CNP Address: Address: [address] [place] Personnel Name: Paola ALEXANDER CNP Address: Address: [address] [place] Personnel Name: Paola ALEXANDER CNP Address: Address: [place] [address]- INFORMATION SOURCE (unrecogn ized section and content) DATE CREATED AUTHOR 06/10/2023 [facility] DATE CREATED AUTHOR AUTHOR'S ORGANIZ ATION 09/19/2023 [facility] DATE CREATED AUTHOR AUTHOR'S ORGANIZ ATION 02/19/2024 [facility] FOR RECORDS PERTAINING TO PATIENTS WHO ARE [...] BE BASED ON THE PRIMARY CLINICAL RECORDS. [employer] [facility]. provides no warranty or guarantee of the accuracy or completeness of information in this document.
== END 2024-03-12 15:44 | disposition home or self-care (01) ==
LOC: VC 14:30
PROVIDERS: PCP Radiology Diagnostic Radiology; Visit Provider Radiology Diagnostic Radiology
DX: I83.813 Varicose veins of bilateral lower extremities with pain (principal)
CPT/HCPCS: 36466

== ENCOUNTER 2024-03-20 14:13 | Outpatient (OUT) | payer OTHER, SELFPAY ==
[2024-03-20 08:18] VITALS: BMI 28.0
--- NOTE | 2024-03-20 08:18 | VEINCLINIC_ITS ---
Vital Signs 03/20/24 08:18 Height 5 ft 7 in Weight 81 kg BMI 28.0 Varicose Veins Patient in today for follow up ultrasound post microfoam chemical ablation left leg. Delbert Miller MD personally performed the services described in this documentation, as scribed by Roma Arevalo RVT, RDMS in my presence and it is both accurate and complete. Roma Miller RVT, RDMS, am scribing for, and in the presence of, Dr. Delbert Rosa and in the presence of the patient. medial thigh: bilateral, knee: bilateral, calf: bilateral, ankle: bilateral and nunes: bilateral sharp, intermittent and tender 6 15+ years Worsened in recent months: Yes standing and sitting bed rest, elevating extremities, compression stockings and other Reports edema, leg edema and other History of lower extremity trauma: No Superficial thrombophlebitis: No Family history of varicose veins: yes Has patient had previous lower extremity venous surgery: No Patient has previously received the following treatment(s) for lower extremity varicose veins: Reports vein ablation (Rt GSV, Rt SSV, Lt GSV) and sclerotherapy Does patient have a history of : yes Does patient intend to have future pregnancies: no Has patient had lower extremity venous scan with relux testing: Yes Support hose used: Yes (15+ years) Problems walking or doing physical activity: No How does it affect you: prolonged sitting required for work Do you walk much: Yes Do you stand much: Yes Medication compliance: good Large amounts of Vitamin K: No Review of Systems ROS Narrative Delbert Miller MD personally performed the services described in this documentation, as scribed by Roma Arevalo RVT, RDMS in my presence and it is both accurate and complete. Roma Miller RVT, RDMS, am scribing for, and in the presence of, Dr. Delbert Rosa and in the presence of the patient. Status of ROS 10 or more systems reviewed and unremark able except as noted in history and below Cardiovascular Reports: edema, swelling of feet/ankles and leg pain with exertion Musculoskeletal Reports: extremity pain, extremity swelling and muscle cramps Integumentary/Breast Reports: itching, skin pain, skin tenderness, skin swelling and changes in skin color [id number] Medical History (Updated 01/29/24 @ 07:47 by Rj Mathur) Phlebitis of superficial vein of left lower extremity ?I80.02 - Phlebitis and thrombophlebitis of superficial vessels of left lower extremity (ICD-10) Phlebitis and thrombophlebitis of superficial vessels of right lower extremity ?I80.01 - Phlebitis and thrombophlebitis of superficial vessels of right lower extremity (ICD-10) Parity 3 ?Z87.898 - Personal history of other specified conditions (ICD-10) 4 Onychomycosis ?B35.1 - Tinea unguium (ICD-10) Hypothyroidism ?E03.9 - Hypothyroidism, unspecified (ICD-10) Depression ?F32.A - Depression, unspecified (ICD-10) Varicose veins of bilateral lower extremities with pain ?I83.813 - Varicose veins of bilateral lower extremities with pain (ICD-10) Migraine ?G43.909 - Migraine, unspecified, not intractable, without status migrainosus (ICD-10) Telangiectasia ?I78.1 - Nevus, non-neoplastic (ICD-10) Surgical History (Updated 03/10/24 @ 10:40 by Rj Mathur) Status post laser ablation of incompetent vein ?Z98.890 - Other specified postprocedural states (ICD-10) S/P sclerotherapy of varicose veins ?Z98.890 - Other specified postprocedural states (ICD-10) ?Z86.79 - Personal history of other diseases of the circulatory system (ICD- 10) History of laparoscopy-assisted vaginal hysterectomy ?Z90.710 - Acquired absence of both cervix and uterus (ICD-10) Previous section ?Z98.891 - History of uterine scar from previous surgery (ICD-10) Family History (Updated 12/31/23 @ 15:22 by Roma Arevalo) Father Family history of cancer Family history of hypertension Mother Family history of hypertension Varicose veins of bilateral lower extremities with pain Social History (Updated 12/31/23 @ 15:22 by Roma Arevalo) Within the past year, how often did you have a drink containing alcohol: 2-4 times a month Smoking status: Never smoker Non-prescribed substance use: denies use Meds Home Medications and Allergies Home Medications ?Medication ?Instructions ?Recorded ?Confirmed ?Type albuterol 90 mcg-budesonide 80 2 inh inhalation DAILY PRN 12/31/23 12/31/23 History mcg/actuation HFA aerosol inhaler shortness of breath (Airsupra) amoxicillin 875 mg-potassium 1 tab PO BID 12/31/23 12/31/23 History clavulanate 125 mg tablet atogepant 60 mg tablet (Qulipta) 60 mg PO DAILY 12/31/23 12/31/23 History fluoxetine 20 mg capsule 20 mg PO DAILY 12/31/23 12/31/23 History levothyroxine 75 mcg tablet 75 mcg PO DAILY 12/31/23 12/31/23 History (Euthyrox) rizatriptan 10 mg tablet (Maxalt) See Rx Instructions PO .COMPLEX 12/31/23 12/31/23 History terbinafine HCl 250 mg tablet 250 mg PO DAILY 12/31/23 12/31/23 History ubrogepant 100 mg tablet (Ubrelvy) mg 12/31/23 History Allergies Allergy/AdvReac Type Severity Reaction Status Date / Time No Known Drug Allergies Allergy Verified 10/19/23 15:25 Exam Narrative Exam Narrative: Delbert Miller MD personally performed the services described in this documentation, as scribed by Roma Arevalo RVT, RDMS in my presence and it is both accurate and complete. Roma Miller RVT, RDMS, am scribing for, and in the presence of, Dr. Delbert Rosa and in the presence of the patient. Constitutional Documenting provider has reviewed patient's vital signs: yes Common normals: oriented x3 Lymph Lymphatic: no lymphedema noted Cardio Common normals: regular rate Rate: regular rate Peripheral pulses: posterior tibial pulses present and dorsalis pedis pulses present Extremity Common normals: normal capillary refill General: calf tenderness and edema Right lower extremity: upper leg and lower leg Left lower extremity: upper leg and lower leg Neuro Common normals: oriented x3 Results Imaging Venous US: Radiologist's impression: The ultrasound demonstrates Varithena induced thrombus visualized at mid/med calf and prox/med calf. Assessment and Plan Assessment and Plan (1) Varicose veins of bilateral lower extremities with pain: Plan Patient in today for follow up ultrasound of lower extremity following treatment of Varithena/microfoam completed on 03/12/24. Delbert Miller MD personally performed the services described in this documentation, as scribed by Roma Arevalo RVT, RDMS in my presence and it is both accurate and complete. I, Roma Arevalo RVT, RDMS, am scribing for, and in the presence of, Dr. Delbert Rosa and in the presence of the patient.
--- NOTE | 2024-03-20 08:21 | W.VEIN ---
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 Print Language: Danish Discharge Date/Time: 03/20/24 15:07
--- NOTE | 2024-03-20 14:30 | VEIN_ITS ---
Patient Name: ANUPAMA CARDOSO MR#: [id number] : 1965 Exam Date: 03/20/2024 Ordering Doctor: DR DELBERT ROSA M.D. RADIOLOGY REPORT PROCEDURE: VC EXT VENOUS LT LIMITED COMPARISON: VC EXT VENOUS LT LIMITED, 02/05/2024. VC EXT VENOUS LT LIMITED, 12/19/2023. INDICATIONS: I80.02 - Phlebitis and thrombophlebitis of superficial ve... TECHNIQUE: Lower extremity corrales scale and Duplex Doppler evaluation of the deep venous system from the inguinal ligament through the calf veins. FINDINGS: REGION: Left lower extremity. THROMBI: Negative for DVT. Varithena induced thrombus visualized at mid/med calf and prox/med calf. COMPRESSIBILITY: Non-compressible segments corresponding to thrombus FLOW: Areas of no flow corresponding to thrombus OTHER: No patent varicose veins remain. CONCLUSION: Post ablation occlusion of treated left leg incompetent varicose veins Dictated by: Delbert Rosa MD on 03/20/2024 at 15:04 Approved by: Delbert Rosa MD on 03/20/2024 at 15:04
--- NOTE | 2024-03-20 14:30 | VEIN_ITS ---
Patient Name: ANUPAMA CARDOSO MR#: [id number] : 1965 Exam Date: 03/20/2024 Ordering Doctor: DR DELBERT ROSA M.D. RADIOLOGY REPORT PROCEDURE: [facility] - OFFICE VISIT FOLLOW UP COMPARISON: [facility] EST LMTD, 02/20/2024. [facility] EST LMTD, 02/05/2024. PROGRESS NOTES: The patient reports no significant problems following micro foam chemical ablation of left leg incompetent varicose veins. The patient has worn her compression stocking. The patient did not require oral analgesics. Physical exam demonstrates thrombosed varicose veins on the left leg. No erythema warmth to suggest cellulitis or thrombophlebitis. No active ulceration. No residual varicose veins. Review of the ultrasound performed the same day demonstrates occlusive thrombus extending throughout the treated left leg varicose veins. No deep vein thrombus The patient expressed a desire to proceed with treatment of incompetent right leg varicose veins. VEIN/[facility] EST LMTD IMPRESSION: 1. Successful ablation of treated left leg incompetent varicose veins 2. Persistent incompetent right leg varicose veins. PLAN: Micro foam chemical ablation right leg incompetent varicose veins Nurse notes, history and physical were reviewed and confirmed, see attached forms. The nurse was present throughout the physical exam and consultation Dictated by: Delbert Rosa MD on 03/20/2024 at 15:05 Approved by: Delbert Rosa MD on 03/20/2024 at 15:06
--- OUTSIDE RECORDS SUMMARY | 2024-03-20 14:38 | XMS_ITS | CCD ---
Author Organization [facility] Inform ion Partnership [facility] Care Team Providers Care Scrub Technician Name Role Phone Paola ALEXANDER Primary Care Physician [phone] PAOLA ALEXANDER Attending PAOLA Kahn Attending Eddiab [...] 02-18-2024 Glucose [Mass/Vol] 86 mg/dL Normal 55-99 [facility] Comment on above: Performed By: #### [id number] #### [facility] [address] [place] [address] Lipid Panelon 02-18-2024 Cholesterol [Mass/Vol] 164 mg/dL Normal 120-200 [facility] Comment on above: Performed By: #### 2 [id number] #### [facility] [address] [place] [address] Cholesterol in HDL [Mass/Vol] 50 mg/dL Invalid Interpretation Code [facility] Comment on above: Result Comment: '>= 60 LOW RISK' '<= 40 HIGH RISK' Performed By: #### 2 [id number] #### [facility] [address] [place] [address] Cholesterol in LDL [Mass/Vol] 102 mg/dL Normal <=129 [facility] Comment on above: Performed By: #### 2 [id number] #### [facility] [address] [place] [address] Cholesterol in VLDL [Mass/Vol] 19 mg/dL Normal 7-40 [facility] Comment on above: Performed By: #### 2 [id number] #### [facility] [address] [place] [address] Triglyceride [Mass/Vol] 95 mg/dL Normal <=149 [facility] Comment on above: Performed By: #### 2 [id number] #### [facility] [address] [place] [address] CHEMISTRYOrdered By: SYSTEM SYSTEM on 07-11-2023 TSH Qn 1.44 m[IU]/L Normal 0.34 - 5.60 mcIU/mL Remisol Chem Physician Orderon 06-07-2023 Physician Order [id number] TIFF Normal [facility] Coding Summary.on 06-15-2022 Coding Summary. [id number]+PGh lYWQ+UO0AZEXrX6 2hyWFhiA8LY6jAM P7ZJXENLEHIUG1M UG9viUK5SAgyD2P ybiAv TnkcoLTuHL93SYg 2UJV7cDhqKUyryK 1xqCGjG6l3XqQnB G89mR25YIcjRVNq CzA5JhRnulmatJN y L0rjGxJmsHFoCie +PHRhYmxlIHdpZH RoPScxMDAlJyBzd PdoAY7bRc3bHVQt LWNvbGxhcHNlOiB j j3eeDAYuTDssJB6 pqQifE9AvpEA7LJ Tbm2p2Ug99jJB+P XDxCQT0jZdxQDjp x782NlVmc0ipNKK 3 lMOsXAvgBSR6M22 jh1B8NLCyAVUfLH R2uZQ1iX1fzKxkk prrZ8LcySXpYpN2 FGX1nXOzpB1glPi n bxxhzL9lXyb+Q09 DZO6DOCAMAP5YRk y2R1EhKgquaTW+P O61OWVkXH47oWJd qZZrw8fdaGe2ZaV w JOPuTZA3hAkyTZg tr6MxEUUtX84fjG Wvq6K6XOBfdUmec VQnWdHsdBY0nX1t ZHegzchmr6ehucf n Aofdb7lmor49wN4 5P60cHTmvKFUnKX S7LKLwYKOwtEhos d1guO3cLo8+IDxj a2sux0yzlGq5NfF w JSIgdmFsaWduPSJ 3g5OzNm40G4OlkU llp8NtQjv1kh04w UWvv3A4lUV1OFyf ZTHpbT2aIFoyBxV 6 QOTxCaDtrJ58nPL gJWcwAq6tkUptqB oxXS0gBGEqlulwH KMstX0oVLZnbSGg hSfcSW8dMVQixyn m h991KrHdNDN6YXW stDQoG7ZseB5pQr UsQEJrXEUlU3Fxs GBsEKksG965LUqz SpQ5TBTgmzIpY6Y s LJImgSqpYoH2b5B 4Zb1Vn7ZbepvnXT A1WOqqXMXzBhD8A gVnJhG2G9EfRbw3 WEQmrBtdJO2mW0T h ZGRpbmctcmlnaHQ 7BHHsYPUboD39bT ReXHxbIe2pb9F2e 642RGJrMFTqcI91 Kk4ezHyoKZYinIN U sA5jrdvef1viyzw aBrZkBFMpAVf8MJ a8TYRavYkdDtRpK LW0UdI3ROZ1bSBl bC3kyWmbsudklH2 w Oyc+Q54tnF4xHRE 6YHW8hgybBBSceq XjSM47RP62V2CqI jwvdGFibGU+PGRp uiYfjNngAU6oKxT j g2ggf4QnGNvpX6I hGJZePWzsIyc4TC WfWJG8uBM5tY3jT CXsDTewo7W6bUG1 W5NtryCubo4ni7d s QRLkVKxcK97saIC yl5H8OYGlvQQ4WU SatZioAiXmiA07Y yc+YKWllPtmw7Ft Jcapq9nye2hfoQa 9 IjMwJSIgdmFsaWd fGUU9j7ZaUq46G0 9sIHdpZHRoPSIxN HZpBECkdSzlhx1q eB5gOs0+PGNvbCB 3 nML5jW4wTKNjPpZ 5UEdzT565UsNgrA DaAaxnt9pzn6jfl Za7CrTpYQVjfkHy zXhlQOY6a2EsQp2 8 L87pFQtzVKBoYSH yMCUiIHZhbGlnbj 6qqE8aDz0+PC9jb 4hbqh64iV95cED+ HTXzNPY4ePquIOx w MNGvsW8bLKotGxR 8MXVnQvMwcM32hI SzKLhwSj0ysPhxd KrzVS4kXRBjvkha c323ZkNod8wbDJB w nFWsIFwkDFJ5X74 fo3P2OIRySMEiKC Y7hTD7lK0oxJibk jogbGVmdDsgdmVy tZnfBPeyJHzpU70 6 IHRvcDsnPlBhdGl potJiNlRqLSi9K7 KrXvd2LZAjgSzcO A6roTKmOAgeRy1j nUdygSejRT3eJIU p ntokg437EsHvp4x kIDEwcHQgVGltZX G5P28ab7C0CMOpL JTlGMW2gLR7yV4g bGlnbjogbGVmdDs g dmVydGljYWwtYWx dE045EGMvpDasDc FazeRsASVwvSW5K A32IU61gQNmw5E4 oKK0I6BoEBOsoep t fsfquTG0PRDuMZD okM26Hq4tlKfdKp 7mNMNcOPD2WVBjg TGiP8YgbL3vUzGd EVTzUDSbA5MmgIJ t SYxgX456MOxkDwH 2BEBqhwMfY6KbJU EpsKgkKeL5p4A4G x7WX1A9CH62KF42 eOQmk2C4bQN5E1B h ZGRpbmctcmlnaHQ 2LOHhZQIvdT74Vz 2fuShmOl6fRMVjP UW1PWVldFNoC6Dx eI1oNaDgWJBhTRB w D2EenMXyIAjbG95 9BXgaEfS0UNEopk YxC0MmOKMxoCldY bA7i3F0Vi4UNTi8 LV87UJ77qXVit1V 5 pBN6Q6ImAERbakp klrrqnKU7XBNlBO WixB70Vy1udCdgG c9gVJOjWFG8HJCc aQSkA8HenI6nSlQ j XOCiUYQyO3EdpSN gAQwgB837EBraRr Q3WBPtuoVeX8ZhZ BZhiLzuEiO9r3G1 Hd4NCVJqKG08GMK 5 pXJ0ZX47PZ42K1F yPjwvdGFibGU+PH RhYmxlIHdpZHRoP ScxMDAlJyBzdHls TX1cZx1cUXCtLNO v rCmkcRTzYjVue2x fWBMkFOyrWO2ouM pgA0XzmVE9JYIrc 9c7Nr21E40fZ4Ad dXA+VMBizAE2mCQ 0 nK0pLtQzSxG8KJo iT418VxCkxIUmLy vqa0mxu0jomKx2Y bY7PZCobsTviKhl THN8l4PhYh88U60 s IHdpZHRoPSIxNSU tOLOktXujdd0bzV 9wIi8+CTJocAA4s XS0kM6eDbTyVzC3 QIubI272OsHwlQP v Uwnlf7ozd8mjnZy 9IjIwJSIgdmFsaW kbTRB3l3PrIo62B 6XhkTubv4GtUmp8 ep64xYHmb4H7pHA 9 O3XhGRSxbgyxyPT xdUozXW0zVRIbnq haOIWzlG9jBZJzD 1z2ZlZiMaG2TCig N7WrcgT8NBDurZA g RZbjLBO5H75sd3R 0PDJiSXXxAUT6zH N3xJ8brRtolphmj GVmdDsgdmVydGlj TMlmAYmfA681EMR v pTrbKNOqeR8fIEC tqMNqlDiyKC0nRG BpbjsnPlJPVEhIQ UFSLCBLQVRITEVF HwXOPO71CX08qUH g a6J1nPN4Y5RdCSU oouonpeqsiFT8JB SfGZMzeI87aEBfH NwdVn6wy2A4z101 QYIlUMTbeI82Do4 u dDogMTBwdCBUaW1 oevjnd0jpqpuzMz QqQEHmHVu7RHd8B WFsaWduOiBsZWZ0 EzD7YHS6yAPqvW2 h gMqmkehrrF2jJpx +QBRsBAtoMSw4Nk wvdGQ+FCNzNWU3y LjlTOjcBKZknX6e NQGdN6z4JqEpRyH 1 RMajA7MqYZShksw hHf15fZ1oZsTvAm L2WFzhZ7FzyqF8D DEwcHQgVGltZXM7 Q64lt4V6PDWrZMB w CXC8rON2dN0rmDi nbjogbGVmdDsgdm VydGljYWwtYWxpZ 919NQHtlMonUsY0 RCiaSCEtHN50WS6 8 qBWvu2W7mZE0W7Q hZGRpbmctcmlnaH P2ZWNcJJDdzV17d VPaADndXt6jy0D3 a926WSAnMBZehI6 7 Tt0vkFxrSICuqGN IuM5wztnvs5mtmy ejGtXlXSYkPHa2A Ik4LMGjdNsnLjRu SLH5TqC5BAQ4bHE h dY7hrAbolypiiA5 wOyc+RmVtYWxlPC 72RF27cYTbz3T1h OU2K5ErAEJbvyll nnwyuMA3PXBwCAX w aY85bGXwBBjqRk1 qk2X0x015GHBsKB JzfB24Eb0ieEkkR FGliNGJfR3vjvat z9jsuliyPePfHBK w TVr0IPh1VEHzfIg fMcAnZFC5MdV8TU R9rMWgzW3tjGtwm tihrH1oWgh+T3V0 wAM6gFWncZlxnKU + IH15fc80N7FbIgp oXmo9ONZgUSZ0qQ C0oL4qJMEbPZjol 8D5hSH6U2EpkySg tb7ii5oxAMPrFQz g W71gjOUlu0R0BDM qhMB9AEEhjDawKj OfnP50Tfc+PGNvb Urig2BfQssbc6qi m5qenLs0BgUdCSP g hjHvaAxoQWX4h4A gGa45W25vVKjzZA RoPSIzMCUiIHZhb Vwoom5glT3dXi8+ QDInuZE0kRA9mB4 i YgJjJuT0PAleR22 7BiSqrQEeQonyb1 gsu5rorCf3ZnWlI SIgdmFsaWduPSJ0 b5SlIp83D3YlrJb y z5RoWva9xq30uES ug9U9eNX9Q3DgJS RpbmctbGVmdDogM S0hZKFzobovTEEn zF0lCJNpU8f1QeI w YaU3IXvtJ5AdieB 6IGJvbGQgMTBwdC CQvF9ewpdnz3jax jogIzAwMDAwMDt0 YIt2YQKjaNuoDwN s TJS8NzD6XTB4pLS hjF9raNlnlvxeeS 9wOyc+WSj9e1tjv XEsBG5bjUA6WY43 XL74vQOej8V8qUK 9 O8VdVAHcileetfn oeFF0ZWZhANTchU 11Ho7fyJmkIy9vZ HIhWVQ4MAArrGKo N4NfeU1vQtIgBFD w UUSlK1LtsAIbXRk wI362NEvgSjJ8WY AxntMvG5EuUDVaq UwnGyA6p8H3Si0G BZ18OV30TY63pAE g o7O2uDV8H3XrKHQ mnidcnpsypEK0QH ZpXTMwiC67Xu6dw JwyUz2nNJElOQT1 GJOpoZDwD3JpbY5 y OnKzZJEgABArN0F xjTIgRHqzQ872AF coPaS0PNCvrsRcA 8AgHZBkqGxuRvJ6 v8Q8Gb3HGo22XN4 0 MC21yZWzo4M8tRN 1W0SnVETahkwpvr xvuYJ6ODZfJYDag C55Rk5ugEjhSy8k YVYuYWG9OKVwoKX z W9GghW8jKnSoUOE iENNvS4TuoIDaOM ooY745BZvcJuP4U NPhgdAtY7KvLQMa uByxSwY3u9Q1Us5 Q HHobhyf6M6YxRmt vdHI+GQ16VRPdBM 95eTCovQIxm3xfo Nm3CdUrLKTbPXA5 yEheGNple8YoTQC t Y29s (more content not included)... Normal [facility] CHEMISTRYOrdered By: SYSTEM SYSTEM on 06-09-2022 [...] 10.3 fL Normal 6.4 - 10.8 fL [facility] HemeAut oSS Platelets (Bld) [#/Vol] 219.0 E9/L Normal 150.0 - 500.0 E9/L [facility] HemeAutoSS RBC (Bld) [#/Vol] 4.7 E12/L Normal 4.3 - 5.9 E12/L [facility] HemeAutoSS WBC corrected for nucl RBC Auto (Bld) [#/Vol] 5.7 E9/L Normal 4.0 - 11.0 E9/L [facility] HemeAutoSS Encounters Encounter Date Encounter Type Care Provider Facility Start: 02-18-2024 End: 02-18-2024 ambulatory Charley BARNETT Facility:[facility] Start: 09-18-2023 End: 09-18-2023 ambulatory PAOLA ARANAILLER Not Available Start: 08-21-2023 End: 08-21-2023 ambulatory PAOLA A DONNAMILLER Not Available Start: 07-11-2023 End: 07-11-2023 Patient encounter procedure Jonnathan Miranda [facility] Start: 06-09-2022 End: 06-09-2022 Patient encounter procedure Jonnathan Miranda [facility] Start: 05-10-2022 End: 05-10-2022 Lab Drop off Jonnathan Miranda [facility] Procedures Date Procedure Procedure Detail Performing Clinician [...] vaccine, unspecified formulation Jonnathan Miranda [facility] Comment on above: Result Comment: R melva m - Lot#[id number] - Exp 12/18/2022 04-29-2021 influenza virus vaccine, unspecified formulation Jonnathan Miranda [facility] 04-01-2021 influenza virus vaccine, unspecified formulation Jonnathan Miranda [facility] 05-16-2020 zoster vaccine, live Jonnathan Maddison asten [facility] 02-23-2020 zoster vaccine, live Jonnathan K asten [facility] 02-20-2020 influenza virus vaccine, unspecified formulation Jonnathan Miranda [facility] Payers Date Payer Category Payer Unknown [id number] 1965 Unknown [id number] 1965 Unknown [id number] 1965 Unknown [id number] Social History Date Type Detail Facility Start: 08-24-2021 Tobacco smoking status Never s moked tobacco (finding) [facility] Tobacco smoking status Never Nay[facility] Sex Assigned At Female [facility] Evaluation + Plan note Radiology Note Date & Type Note Facility Evaluation + Plan note Future Appointments Appointment Date:06/19/2022 03:00:00 PM Scheduled Provider: Location:.BD Appointment Type:BD Bone Density (FT) Appointment Date:06/19/2022 03:30:00 PM Scheduled Provider: Location:.MAMMOGRAM Appointment Type:MA Screen (FT) Future Scheduled TestsBD Bone Density DEXA 06/19/22MA Mamm Screen w/CAD if perf and 3D Yosi 06/19/22 [facility] Hospital course Narrative Note Date & Type Note Facility Hospital course Narrative No data available for this section [facility] Hospital Discharge instructions Note Date & Type Note Facility Hospital Discharge instructions No data available for this section [facility] Progress note Note Date & Type Note Facility Progress note No data available for this section [facility] Summary Purpose Family History No Family History [...] ALEXANDER CNP Address: Address: [address] [place] Personnel Name: Paola ALEXANDER CNP Address: Address: [address] [place] [address] Personnel Name: Paola ALEXANDER CNP Address: Address: [place] [address]- INFORMATION SOURCE (unrecogn ized section and content) DATE CREATED AUTHOR 06/10/2023 [facility] DATE CREATED AUTHOR AUTHOR'S ORGANIZ ATION 09/19/2023 [facility] DATE CREATED AUTHOR AUTHOR'S ORGANIZ ATION 02/19/2024 [facility] FOR RECORDS PERTAINING TO PATIENTS [...] BE BASED ON THE PRIMARY CLINICAL RECORDS. [employer] [facility]. provides no warranty or guarantee of the accuracy or completeness of information in this document.
== END 2024-03-20 15:07 | disposition home or self-care (01) ==
LOC: VC 14:21
PROVIDERS: PCP Radiology Diagnostic Radiology; Visit Provider Radiology Diagnostic Radiology
DX: I80.02 Phlebitis and thrombophlebitis of superficial vessels of left lower extremity (principal)
CPT/HCPCS: 93971; G0463

== ENCOUNTER 2024-03-31 14:49 | Outpatient (OUT) | payer OTHER, SELFPAY ==
--- NOTE | 2024-03-31 11:28 | VEINCLINIC_ITS ---
Vital Signs 03/31/24 15:20 03/31/24 16:16 Height 5 ft 7 in Weight 81.647 kg BP 130/70 BP Location Right Brachial BP Position Sitting BP Cuff Size Adult BP Source Manual Cuff Respiration 16 Pulse 74 Pulse Source Monitor Pulse Oximetry (%) 97 Oxygen Delivery Method Room Air Comment The patient's blood pressure is elevated. Varicose Veins Patient in today for micorofoam chemical ablation right leg Heriberto Miller MD personally performed the services described in this doc umentation, as scribed by Rj Mathur RN in my presence and it is both accurate and complete. Rj Miller RN, am scribing for, and in the presence of, Dr. Heriberto Barnes and in the presence of the patient. medial thigh: bilateral, knee: bilateral, calf: bilateral, ankle: bilateral and nunes: bilateral sharp, intermittent and tender 6 15+ years Worsened in recent months: Yes standing and sitting bed rest, elevating extremities, compression stockings and other Reports edema, leg edema and other History of lower extremity trauma: No Superficial thrombophlebitis: No Family history of varicose veins: yes Has patient had previous lower extremity venous surgery: No Patient has previously received the following treatment(s) for lower extremity varicose veins: Reports vein ablation (Rt GSV, Rt SSV, Lt GSV) and sclerotherapy Does patient have a history of : yes Does patient intend to have future pregnancies: no Has patient had lower extremity venous scan with relux testing: Yes Support hose used: Yes (15+ years) Problems walking or doing physical activity: No How does it affect you: prolonged sitting required for work Do you walk much: Yes Do you stand much: Yes Medication compliance: good Large amounts of Vitamin K: No Review of Systems ROS Narrative Heriberto Miller MD personally performed the services described in this documentation, as scribed by Rj Mathur RN in my presence and it is both accurate and complete. Rj Miller RN, am scribing for, and in the presence of, Dr. Heriberto Barnes and in the presence of the patient. Status of ROS 10 or more systems reviewed and unremark able except as noted in history and below Cardiovascular Reports: edema, swelling of feet/ankles and leg pain with exertion Musculoskeletal Reports: extremity pain, extremity swelling and muscle cramps Integumentary/Breast Reports: itching, skin pain, skin tenderness, skin swelling and changes in skin color PFSH PFSH Medical History (Updated 01/29/24 @ 07:47 by Rj Mathur) Phlebitis of superficial vein of left lower extremity ?I80.02 - Phlebitis and thrombophlebitis of superficial vessels of left lower extremity (ICD-10) Phlebitis and thrombophlebitis of superficial vessels of right lower extremity ?I80.01 - Phlebitis and thrombophlebitis of superficial vessels of right lower extremity (ICD-10) Parity 3 ?Z87.898 - Personal history of other specified conditions (ICD-10) 4 Onychomycosis ?B35.1 - Tinea unguium (ICD-10) Hypothyroidism ?E03.9 - Hypothyroidism, unspecified (ICD-10) Depression ?F32.A - Depression, unspecified (ICD-10) Varicose veins of bilateral lower extremities with pain ?I83.813 - Varicose veins of bilateral lower extremities with pain (ICD-10) Migraine ?G43.909 - Migraine, unspecified, not intractable, without status migrainosus (ICD-10) Telangiectasia ?I78.1 - Nevus, non-neoplastic (ICD-10) Surgical History (Updated 03/31/24 @ 16:20 by Rj Mathur) S/P sclerotherapy of varicose veins ?Z98.890 - Other specified postprocedural states (ICD-10) ?Z86.79 - Personal history of other diseases of the circulatory system (ICD- 10) Status post laser ablation of incompetent vein ?Z98.890 - Other specified postprocedural states (ICD-10) S/P sclerotherapy of varicose veins ?Z98.890 - Other specified postprocedural states (ICD-10) ?Z86.79 - Personal history of other diseases of the circulatory system (ICD- 10) History of laparoscopy-assisted vaginal hysterectomy ?Z90.710 - Acquired absence of both cervix and uterus (ICD-10) Previous section ?Z98.891 - History of uterine scar from previous surgery (ICD-10) Family History (Updated 12/31/23 @ 15:22 by Roma Arevalo) Father Family history of cancer Family history of hypertension Mother Family history of hypertension Varicose veins of bilateral lower extremities with pain Social History (Updated 12/31/23 @ 15:22 by Roma Arevalo) Within the past year, how often did you have a drink containing alcohol: 2-4 times a month Smoking status: Never smoker Non-prescribed substance use: denies use Meds Home Medications and Allergies Home Medications ?Medication ?Instructions ?Recorded ?Confirmed ?Type albuterol 90 mcg-budesonide 80 2 inh inhalation DAILY PRN 12/31/23 12/31/23 History mcg/actuation HFA aerosol inhaler shortness of breath (Airsupra) amoxicillin 875 mg-potassium 1 tab PO BID 12/31/23 12/31/23 History clavulanate 125 mg tablet atogepant 60 mg tablet (Qulipta) 60 mg PO DAILY 12/31/23 12/31/23 History fluoxetine 20 mg capsule 20 mg PO DAILY 12/31/23 12/31/23 History levothyroxine 75 mcg tablet 75 mcg PO DAILY 12/31/23 12/31/23 History (Euthyrox) rizatriptan 10 mg tablet (Maxalt) See Rx Instructions PO .COMPLEX 12/31/23 12/31/23 History terbinafine HCl 250 mg tablet 250 mg PO DAILY 12/31/23 12/31/23 History ubrogepant 100 mg tablet (Ubrelvy) mg 12/31/23 History Allergies Allergy/AdvReac Type Severity Reaction Status Date / Time No Known Drug Allergies Allergy Verified 10/19/23 15:25 Assessment and Plan Assessment and Plan (1) Varicose veins of bilateral lower extremities with pain: Plan f/u evaluation with physician along with right leg limited u/s IHeriberto MD personally performed the services described in this documentation, as scribed by Rj Mathur RN in my presence and it is both accurate and complete. Rj Miller RN, am scribing for, and in the presence of, Dr. Heriberto Barnes and in the presence of the patient. Procedures Procedure Instructions Procedures Right leg microfoam chemical ablation/Varithena: Risks and benefits of the procedure were discussed at length and informed written consent was obtained.? Time-out procedure was performed and the correct patient and procedure were confirmed.? Staff present during time-out: Rj Mathur RN and Heriberto Barnes MD.? Patient prepped and procedure performed in usual sterile fashion.? Patient was placed in Trendelenburg prior to Polidocanol/Varithena injections. Sclerosing Agent:??13 cc 1% Polidocanol/Varithena Site Injected: Right lecc varithena administered in to a 4mm varicose vein medial distal right lower leg 5c varithena administered in to a 3mm varicose vein anterior medial-lateral right knee Number of Injections:? 2 The patient tolerated the procedure well without complication.? Hemostasis was obtained and thigh-high compression stocking was applied with foam pads.? Instructed patient to wear stocking for at least 96 hours and sleep with it and only remove for showering.? The patient was instructed to? wear stocking for 2 weeks.? Patient verbalizes understanding and states they will comply.? Patient was given post-procedure instructions. Patient was discharged in good condition.? Scheduled to undergo limited venous ultrasound and? exam on 04/08/2024. IHeriberto MD personally performed the services described in this documentation, as scribed by Rj Mathur RN in my presence and it is both accurate and complete. Rj Miller RN, am scribing for, and in the presence of, Dr. Heriberto Barnes and in the presence of the patient.
--- NOTE | 2024-03-31 11:32 | P.DS_ITS ---
Discharge Plan Discharge Disposition: Home, Self-Care Outpatient Diagnostics: VC Facility EST LMTD (Routine) Timeframe: 2 Weeks Facility: [facility] - Location: [facility] Ordered By: Heriberto Barnes VC EXT Venous RT LMTD (Routine) Timeframe: 2 Weeks Facility: [facility] - Location: Vein Center Ordered By: Heriebrto Barnes Follow Up Appointments: 04/08/2024 Plan of Treatment: f/u evaluation with physician along with right leg limited u/s Patient Instructions: Polidocanol (By injection) (Asclera, Varithena) Print Language: Estonian Discharge Date/Time: 03/31/24 16:18
--- NOTE | 2024-03-31 15:04 | VEIN_ITS ---
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 Pre-operative Diagnosis: CEAP class C3 venous insufficiency with pain, tenderness, edema and incompetent branch saphenous vein(s), chronic venous insufficiency right leg secondary to venous incompetence Post-operative Diagnosis: CEAP class C3 venous insufficiency with pain, tenderness, edema and incompetent branch saphenous vein(s), chronic venous insufficiency right leg secondary to venous incompetence Procedure Performed: 1. Ultrasound-guided microfoam chemical ablation with Varithenaregistered 2. Intraoperative ultrasound guidance Physician: Heriberto Barnes M.D. Anesthesia: None Indications for Procedure: 58 year old female. Symptoms including lower extremity pain, swelling, dilated bulging veins for many years despite conservative medical therapy including medical compression stockings, exercise and analgesics. Prior procedures include intravenous laser ablation and microfoam chemical ablation. Multiple incompetent varicosities of the right leg. Duplex scan showed reflux and enlarged diameters up to 4 mm. The patient underwent informed consent including management options where the complications of infection, bleeding, pain, and skin injury were discussed. Particular attention was spent discussing thrombus extension and deep vein thrombosis as well as the possibility of pulmonary embolus and treatment with oral or injectable blood thinners. Procedure: The patient walked to the procedure room. All applicable staff donned appropriate apparel. A procedure timeout was performed to confirm correct patient, correct extremity, correct procedure, and correct room set-up including presence of all applicable supplies, devices, and drugs. A duplex ultrasound, performed by myself confirmed the location and incompetence of branch saphenous varicosities and their course was marked on the skin together with the dilated tributaries. The extent of treatment of the vein and the associated varicosities was determined through ultrasound mapping. The skin was prepped and then punctured with a butterfly needle and advanced under ultrasound guidance. The Varithenaregistered canister was activated and the canister was primed and purged as required in the instructions for use. Varithenaregistered was drawn into a sterile syringe. Varithenaregistered was slowly administered at 0.5-1.0 cc/second with close observation by ultrasound of its course in the vessels. Total volume utilized was: 13 mL (8 mL into a 4 mm varicosity distal medial right leg; 5 mL into a 3 mm varicosity anterior lateral to the knee). Following administration of Varithenaregistered the leg was elevated and the patient was asked to repeatedly dorsiflex the ankle to limit flow of Varithenaregistered into perforating veins. Once appropriate spasm had been confirmed in the treated veins, the vascular catheter was removed from the leg and light pressure was applied over the puncture site for hemostasis. The common femoral and deep superficial veins were then evaluated for flow and compressibility prior to dressing placement. The lower extremity was kept elevated at 45 degrees above the horizontal and cording material was applied over the saphenous segments and tributaries to allow for eccentric compression over the target vessels including the targeted saphenous vein(s). A multilayer dressing was applied consisting of foam pads, coban and thigh-high 20-30 mm Hg compression elastic support hose were placed on the patient. The leg was lowered only after compression had been applied and the patient was immediately ambulatory. The patient ambulated 10 minutes under supervision and was without apparent concerns at time of release. Post-care instructions include advising patient to keep post-treatment bandages in place and dry for 48 hours, avoid extended periods of inactivity, avoid heavy exercise for one week, wear compression stockings on the treated leg continuously for two weeks, to walk daily for 10 minutes over the next month. The patient was instructed to take an anti-inflammatory medicine as needed and to follow up for color duplex scan of the Saphenous veins, the treated branch saphenous varicosities, the adjacent deep veins, and additional treatment within 7 days. PERSONNEL: Rj Mathur RN Electronically authenticated by: HERIBERTO BARNES Date: 03/31/2024 16:35
--- OUTSIDE RECORDS SUMMARY | 2024-03-31 15:05 | XMS_ITS | CCD ---
Author Organization [facility] Inform ion Partnership [facility] Care Team Providers Care Qualifications Examiner Name Role Phone Paola ALEXANDER Primary Care [...] 02-18-2024 Glucose [Mass/Vol] 86 mg/dL Normal 55-99 [facility] Comment on above: Performed By: #### [id number] #### [facility] [address] [place] [address] Lipid Panelon 02-18-2024 Cholesterol [Mass/Vol] 164 mg/dL Normal 120-200 [facility] Comment on above: Performed By: #### 2 [id number] #### [facility] [address] [place] [address] Cholesterol in HDL [Mass/Vol] 50 mg/dL Invalid Interpretation Code [facility] Comment on above: Result Comment: '>= 60 LOW RISK' '<= 40 HIGH RISK' Performed By: #### 2 [id number] #### [facility] [address] [place] [address] Cholesterol in LDL [Mass/Vol] 102 mg/dL Normal <=129 [facility] Comment on above: Performed By: #### 2 [id number] #### [facility] [address] [place] [address] Cholesterol in VLDL [Mass/Vol] 19 mg/dL Normal 7-40 [facility] Comment on above: Performed By: #### 2 [id number] #### [facility] [address] [place] [address] Triglyceride [Mass/Vol] 95 mg/dL Normal <=149 [facility] Comment on above: Performed By: #### 2 [id number] #### [facility] [address] [place] [address] CHEMISTRYOrdered By: SYSTEM SYSTEM on 07-11-2023 TSH Qn 1.44 m[IU]/L Normal 0.34 - 5.60 mcIU/mL Remisol Chem Physician Orderon 06-07-2023 Physician Order [id number] TIFF Normal [facility] Coding Summary.on 06-15-2022 Coding Summary. [id number]+PGh lYWQ+ZS2NXGQsJ3 5ujLAevX9OY7aSU T4DMYYTSYLIYK9P QG7uwPC3KYqaP4E ybiAv FimlmHHyIQ44HUb 1QYS2dRcsJRgfdM 6ipRNlA4l0YpTtG Q43zM45JMbrXAXl RdP3XmVmmdxnfYX y N0qvJoVgnZTqEab +PHRhYmxlIHdpZH RoPScxMDAlJyBzd EqwGC7aBt6pPKMi LWNvbGxhcHNlOiB j w8eyEBRrXWuuZW1 cgVgtD7YkiXH5GV Dok4z0Kw83zKW+P SDwMVZ5rJulTMfq e769RyEet8iyQMB 3 pZYnBJwqFKJ1V04 pn1I0EBKoFKFvID X9eWH0sC4lgHose obsE6LpgVDyMqN3 DJT2tESbfV9ghTi n fvslgL7aOfv+Q09 VTQ6QZMCZBD9ESn r3Y2BaMyoefXB+P M83RIKgUA98yVPc lFVcp3alyVw0IdZ w UZAtYSJ3bJduQZe yb1CfSJZnM57dyC Wzx8V7IQPslQoua IYvOgFqeAY5wQ5o DXqeqqqhx7inipv n Jpmtp3girm62uM5 3N40zLMfhAQOaWM P5NAReMJRxoWnub s2cvM5nIe4+IDxj j2lvc5omaWl0UtR w JSIgdmFsaWduPSJ 0y2KuOu41Q2IdrY msb0HgHlu7rg67a MFev6N0xRF0AYsb MPBorW2qXQqfNsI 6 TEAlWtBxpU91yMQ yBWksYe2zjPodlW efSF0fMBBfwhgoA IIzaE6nZZEyzVSt dUkgVB2aOSMqcdv m n029TdSsDXS5VNN zoCPkB7EtwN7xZu RqZRFkVIRhF3Ozf JRdEYpzZ965NVcc BwR1YBYstzKoL4U s REArwQszTdQ0z1X 4Ta7Ze3ToyomdNY U8UOywUZXePkR3U gDcVjV6E9DtUay4 OAXdzBasVU2yZ9H h ZGRpbmctcmlnaHQ 4LZGcPZGhfS30pV XzRRlcAr9oh6S8c 642ROJiJTQsjI29 Tw9xqMctEEAwlJR U bA0nyrbhm4fghwo bBnUvSCFoEFe7SQ o7KVHkqPisAoMvW QL4FtV5PRK7dFIx kN0ixLxszojbiN4 w Oyc+J99xjS3kZWR 7QST3rgjvEUVtkx CxUJ04ES44C8EgJ jwvdGFibGU+PGRp mzFwzSslUB4iIkP j a8cgd2KhPTbgY2F oESEbRDjnEon8KG DgUFZ2iRC9cR7iF TRxSPgmf8S8vER0 D0FvgqXgsa6sk6o s UOPwGXhvU90inTA tj4D4NBVmmUZ8KO PxqVqdZrWyzK76J yc+BYCwwCwng3Tm Iumga0rkz4tucRd 9 IjMwJSIgdmFsaWd tMUU4f2ClDn92B0 9sIHdpZHRoPSIxN DSgLBMivDvubi2m jO5xRh3+PGNvbCB 3 tOC7cW8jZCUeKhP 8VCqlH898SgYmbE BbVujlp9lxt6zyp Zi2TgWmXKEllqKx mDqaXMH5f5QzEl0 8 A63eKGvbONRvATW yMCUiIHZhbGlnbj 5waG2yPp0+PC9jb 7lvsk83tA30iLN+ LFZkSQJ3dGsxKIl w ZXMpyV7iHWadAkU 2RCPoRsQozU26jV TqSToaQh8wmNtiu GciYH0yKMTbyrmx z057OiPgq6soLMI w vMQlHCmaVDB5X74 vg2K6DQTcWZDfPK V5hOM9jQ6inGlka jogbGVmdDsgdmVy eTztFKmeBNjaV83 6 IHRvcDsnPlBhdGl wblPdNqVfVSb3U3 HkGxr7IRHiuYapH C3riDWbHNplOj9m kGayvQftPU2zJOO p ltxwl853GaSfq1v kIDEwcHQgVGltZX I8I90ev2Q7MGTpQ WDwUFW0pYM3vZ7j bGlnbjogbGVmdDs g dmVydGljYWwtYWx qP906MHUspUtaAf VmbjQzXPHgvFX4D I69KY33tWEfb0U2 nPS7N3HpVBRrjni t ojfskAB6RMVdTUU swB01Ka3akRlaPw 6dKDEtKVO6GJOdn PCyE7KfsR8zCmTk YTXiOUCbA8UndIA t NCxaP845DViqQhX 2GSUgemAiC0WxRM KyoGswRwF7t9X7M c3HL1G1MA54CI27 hCVdf7S1zWF4V3A h ZGRpbmctcmlnaHQ 4WJPiTJSlhU12Cx 0nuIkoDz6qBSGxO KR1VDErnSIaC7Qt xA5oTqBtKPXbRKP w Z3ZshTTwBZtnQ52 4VFllRyE4OWVfqz EuM9HoNKBokMhmD rJ2b0T3Xt9LPZm6 NG92VB81jHXww6S 5 gVQ2M1CuOYAtbkl qeuveyES2NCYhAW BpsQ23Wd6zmKfuR d7wYTHiZVT3EGWq wIGkJ6VyvU3mJtG j HNRvLYPbL1HziIJ tTCloE041MRknUk X2LLWjpqToV2YnA HKjxRrwOrH9a7M1 Ho4CDFYgVY82OCO 5 vGW6UN41ER41W1S yPjwvdGFibGU+PH RhYmxlIHdpZHRoP ScxMDAlJyBzdHls CQ8qKx5sUNBlADG v xAqhrCMyFgFgh8y eDGPiACniFD6ksA oyA0ZyhGP4EPYzl 1n5Mh85I27xD6Bt dXA+JDLoqPJ2vDC 0 iO5yQeKpZsP8GIe oX980FvGmqWLjBs cwl2tkb2cpeZd5M sK2GMLmlhEmrTqw XIQ1e8MmEt02C31 s IHdpZHRoPSIxNSU cQMSplLdrvp2ovF 9wIi8+HOPhkDY1k GD1jY1zDgKqKiK8 CVfhA853WeVrbEW v Gspow9wkw0hieTl 9IjIwJSIgdmFsaW rpODZ3q0QjHa29K 4KmjFuqx9YfWbt4 bb08fQAvm4T4mIF 9 R7PfJRCgsdeujLJ mkTkqHT8xDXMgaw vqBDFxkV6cCVWtO 8r9AdIcYuR7VAbl M7TrmzC3AYIflXY g QZifNBS5J75zr0L 9NGKhDLPiMLD3jU O4fE9twVadyjimw GVmdDsgdmVydGlj TVqdRYjxY746ZMY v iLxcDJOapW5qVZB ohXLecNirEG9vZQ BpbjsnPlJPVEhIQ UFSLCBLQVRITEVF UfLODF57AJ69kEO g w9G0yQP1R9WpPZX ewcunjaxiqDB5ON TiUFSmxT73aJNtE AqaUc2du3Y0j151 EDWdMFGduW54Zt4 u dDogMTBwdCBUaW1 dbcsyc5xnyzzqSf HlKXXsWFg4DYi1Q WFsaWduOiBsZWZ0 WvK7JOD9pYStsI3 h kLiyyczzfT3aEmo +BUUkQPnpOLs3Qo wvdGQ+MFZpUPB9u MokZUyySGDjuO9t JMZlE6d6BwTkDzC 1 UWdeK4RaBHTmvhr tAa87xM5uKvYzUg S4QZhtW2AvctP0J DEwcHQgVGltZXM7 Q40ou7T6ENHtPZX w ROD6xUI6tP4fiLm nbjogbGVmdDsgdm VydGljYWwtYWxpZ 069YDVvvAggKhO4 DDpeJVMqVV87ZQ8 8 zCWvk5B4xDX5E1A hZGRpbmctcmlnaH R0XAVaXLNqjJ07m NJcEGtlSs2tv2Z1 w594GOQtWPPwtF7 7 Ar2byKabKRIzyIH HsZ2cuygok5fdsq mqNcOgHDZkRGu1D By2CRMfkRpdCwPz TDW0BeT9CNY1eSC h aI9dmWalxwfjaG9 wOyc+RmVtYWxlPC 03JI21qWVbi8L0o NF8K8FkXRIteggs curueXB8HXMeWJP w sX47nCXdJFliXz2 ey1F2y800CZWwRT EsgA40Az0mhTjzI KStwNQTgQ9tqtcv y5yvxthsXyXkKAQ w JDi2JWg0IXZiwKg yHnPwRAA4KfB7CO U4dJBewN4akNxyd rgzgS0qWwf+T3V0 sNO8qHHwhVosxHE + UZ96fo38A0EqFia sZif2EOSwKXM3yJ C1xK4cCVFcUFwkv 9J1eMG9T1UgfgCu nk4or8ubBCOsWQk g R14hoLCsp4L4NYF hiXG3BRKteKahVs RyyS65Ode+PGNvb Lkwm8GtSxjwx4xw d7nroYi4YzHyCZA g srUkzXxwGTP2f6H tAd88A05wBCxjNZ RoPSIzMCUiIHZhb Hiyep3nuZ1gQt6+ IXDfrPP5zEF2rW3 i LqQpKhD0LOalM67 0RfGuqFAaBssxg8 xbk7utgYk2AkUvQ SIgdmFsaWduPSJ0 h2TcRm89B4IixJd y f6RqOug6hr27qGS gt8F8lFU4F9PqMZ RpbmctbGVmdDogM M7aRSZdnguvUWSu cG0mIMGrH8r3DjV w LsG4QUmyQ4LhkiI 6IGJvbGQgMTBwdC OIwI7eehirb0gnj jogIzAwMDAwMDt0 PIs4TXGvtBesWpV s VEB6DjE7CQS5sVN jiL2iqEcdekhhoW 9wOyc+TKd4e8nan UDgQG9szQB6BE80 MI90qUHrq0Q3kPC 9 Y7CjQKZvpgasbwd xlGW4YUQyARHhrO 32On1bhFvmMp0gE QLhZWB6WJLvfURo F7OstP3eOzMjKKZ w NXCjK1OecGKiHMs wR699AVzySvG9HZ BbsvTpT8QzAAFhq JqlXnN4u4C4Le5Y NI07KA79SG78bBC g r8V7dKC9C0VcQHC sejuxsbqdhHD9ZU TwBSEoxC49Ux9in YwtAl0zELRcTAN0 ZHDaqIIhM7KgkG4 y EpNzGJPbYVPzL2A elJJbDPzhM790QG vpKyG4YURaxnBoV 3OqXPAqsFklIaW6 u5E9Gz7EVg07JT8 0 JC22hJXll0N3pIG 6F4AaOIHldrkorn osoTZ4QBRnGKZdw B63Wt8gpMiqZj0b MRCvBJD2NGKjvYB z Q4IpkF5gIxBoZUY iJOOqU8FxoGBqMN zdT280OKhnDfW2D YFomzIoL6RwXPLf gXugOcU3b1T1Fq6 Q SDnilew8P1KkNbw vdHI+DL27POJzHP 77jLBlqTSzt5ecy Jd5MvKtUUUlKTG2 fFtjODurq0HnMFS t Y29s (more content not included)... Normal [facility] CHEMISTRYOrdered By: SYSTEM SYSTEM on [...] 10.3 fL Normal 6.4 - 10.8 fL [facility] [place] Platelets (Bld) [#/Vol] 219.0 E9/L Normal 150.0 - 500.0 E9/L [facility] [place] [facility] RBC (Bld) [#/Vol] 4.7 E12/L Normal 4.3 - 5.9 E12/L [facility] [place] [facility] WBC corrected for nucl RBC Auto (Bld) [#/Vol] 5.7 E9/L Normal 4.0 - 11.0 E9/L [facility] [place] [facility] Encounters Encounter Date Encounter Type Care Provider Facility Start: 02-18-2024 End: 02-18-2024 ambulatory Charley BARNETT [place]: 09-18-2023 End: 09-18-2023 ambulatory PAOLA ARANAILLER Not Available Start: 08-21-2023 End: 08-21-2023 ambulatory PAOLA A DONNAMILLER Not Available Start: 07-11-2023 End: 07-11-2023 Patient encounter procedure Jonnathan Miranda [facility] Start: 06-09-2022 End: 06-09-2022 Patient encounter procedure Jonnathan Miranda [facility] Start: 05-10-2022 End: 05-10-2022 Lab Drop off Jonnathan Miranda [facility] Procedures Date Procedure Procedure Detail Performing Clinician Start: 12-25-2014 left needle-localize d ultrasound-guided left breast biopsy times two Jonnathan Miranda Start: 07-02-2001 Diagnostic laparoscopy Jonnathan Miranda Comment on above: 2001 Start: 07-02-1999 section Jonnathan Miranda Breast biopsy and re lated procedures Jonnathan Miradna Comment on above: multiple both breast s Endometrial ablation Jonnathan encarnacion Excisional biopsy of breast Jonnathan Miranda Comment on above: left; 12/2003, 10/2006 Hernia repair Jonnathan Miranda Comment on above: pedriatric, right Immunizations Immunization Date Immunization Notes Care Provider Nicola chicas 03-23-2022 influenza virus vaccine, unspecified formulation Jonnathan Miranda [facility] Comment on above: Result Comment: R melva m - Lot#[id number] - Exp 12/18/2022 04-29-2021 influenza virus vaccine, unspecified formulation Jonnathan Miranda [facility] 04-01-2021 influenza virus vaccine, unspecified formulation Jonnathan Miranda [facility] 05-16-2020 zoster vaccine, live Jonnathan Maddison asten [facility] 02-23-2020 zoster vaccine, live Jonnathan K asten [facility] 02-20-2020 influenza virus vaccine, unspecified formulation Jonnathna Miranda [facility] Payers Date Payer Category Payer Unknown [id number] 1965 Unknown [id number] 1965 Unknown [id number] 1965 Unknown [id number] Social History Date Type Detail Facility Start: 08-24-2021 Tobacco smoking status Never s moked tobacco (finding) [facility] Tobacco smoking status Never Nayane [facility] Sex Assigned At Female [facility] Evaluation + Plan note Radiology Note Date & Type Note Facility Evaluation + Plan note Future Appointments Appointment Date:06/19/2022 03:00:00 PM Scheduled Provider: Location:.BD Appointment Type:BD Bone Density (FT) Appointment Date:06/19/2022 03:30:00 PM Scheduled Provider: Location:.MAMMOGRAM Appointment Type:MA Screen (FT) Future Scheduled TestsBD Bone Density DEXA 06/19/22MA Mamm Screen w/CAD if perf and 3D Yosi 06/19/22 [facility] Hospital course Narrative Note Date & Type Note Facility Hospital course Narrative No data available for this section [facility] Hospital Discharge instructions Note Date & Type Note Facility Hospital Discharge instructions No data available for this section [facility] Progress note Note Date & Type Note Facility Progress note No data available for this section [facility] Summary Purpose Family History No [...] ALEXANDER CNP Address: Address: [address] Personnel Name: Paola ALEXANDER CNP Address: Address: [address] Personnel Name: Paola ALEXANDER CNP Address: Address: [address] [place] [address]- INFORMATION SOURCE (unrecogn ized section and content) DATE CREATED AUTHOR 06/10/2023 [facility] DATE CREATED AUTHOR AUTHOR'S ORGANIZ ATION 09/19/2023 [facility] DATE CREATED AUTHOR AUTHOR'S ORGANIZ ATION 02/19/2024 [facility] FOR RECORDS PERTAINING TO PATIENTS [...] BE BASED ON THE PRIMARY CLINICAL RECORDS. [facility]. provides no warranty or guarantee of the accuracy or completeness of information in this document.
[2024-03-31 15:20] VITALS: BP 130/70; PULSE 74; O2SAT 97
== END 2024-03-31 16:18 | disposition home or self-care (01) ==
LOC: VC 15:02
PROVIDERS: PCP Radiology Diagnostic Radiology; Visit Provider Radiology Diagnostic Radiology
DX: I83.813 Varicose veins of bilateral lower extremities with pain (principal)
CPT/HCPCS: 36466

== ENCOUNTER 2024-04-08 14:55 | Outpatient (OUT) | payer OTHER, SELFPAY ==
--- NOTE | 2024-04-08 14:58 | VEIN_ITS ---
Patient Name: ANUPAMA CARDOSO MR#: [id number] : 1965 Exam Date: 04/08/2024 Ordering Doctor: DR JOSE FISHER M.D. RADIOLOGY REPORT PROCEDURE: [facility] EST [facility] - OFFICE VISIT FOLLOW UP COMPARISON: [facility], 03/20/2024. PROGRESS NOTES: The patient reports improvement in leg symptoms. There has been interval reduction in varicosities. The patient has followed our recommendations to walk 20-30 minutes once or twice per day since the procedure. Physical exam demonstrates decrease in varicosities of the leg. Persistent spider veins are identified along the legs bilaterally. Review of the ultrasound performed the same day demonstrates occlusive thrombus extending throughout the treated vein(s), see separate report, consistent with a successful ablation. No thrombus extending into or beyond the saphenofemoral junction. The patient expressed a desire to proceed with treatment of bilateral spider veins.. The patient was informed that treatment was a process and would require 2-4 procedures/sessions. VEIN/[facility] EST TD IMPRESSION: 1. Successful ablation of the right lower extremity treated branch saphenous vein(s). 2. Persistent spider veins. PLAN: 1. Bilateral sclerotherapy. Nurse notes, history and physical were reviewed and confirmed, see attached forms. The nurse was present throughout the physical exam and consultation Dictated by: Jose Fisher M.D. on 04/08/2024 at 16:17 Approved by: Jose Fisher M.D. on 04/08/2024 at 16:26
--- NOTE | 2024-04-08 14:58 | VEIN_ITS ---
Patient Name: ANUPAMA CARDOSO MR#: [id number] : 1965 Exam Date: 04/08/2024 Ordering Doctor: DR JOSE BARNES M.D. RADIOLOGY REPORT PROCEDURE: [facility] EXT VENOUS RT LMTD COMPARISON: VC EXT VENOUS RT LMTD, 02/20/2024. INDICATIONS: I80.01 - Phlebitis and thrombophlebitis of superficial ve... TECHNIQUE: Lower extremity corrales scale and Duplex Doppler evaluation of the deep venous system from the inguinal ligament through the calf veins. FINDINGS: REGION: Right lower extremity. THROMBI: Negative for DVT. Varithena induced thrombus visualized at mid/lat calf and dist/med calf. COMPRESSIBILITY: Non-compressible segments corresponding to thrombus FLOW: Areas of no flow corresponding to thrombus OTHER: No patent varicose veins remain. CONCLUSION: 1. Successful post ablation occlusion of treated right leg branch saphenous varicosities. Dictated by: Jose Barnes M.D. on 04/08/2024 at 16:16 Approved by: Jose Barnes M.D. on 04/08/2024 at 16:17
[2024-04-08 15:17] VITALS: BMI 28.0
--- NOTE | 2024-04-08 15:17 | VEINCLINIC_ITS ---
Vital Signs 04/08/24 15:17 Height 5 ft 7 in Weight 81 kg BMI 28.0 Varicose Veins Patient in today for follow up ultrasound post micorofoam chemical ablation right leg Heriberto Miller MD personally performed the services described in this documentation, as scribed by Roma Arevalo RVT, RDMS in my presence and it is both accurate and complete. Roma Miller RVT, RDMS, am scribing for, and in the presence of, Dr. Heriberto Barnes and in the presence of the patient. medial thigh: bilateral, knee: bilateral, calf: bilateral, ankle: bilateral and nunes: bilateral sharp, intermittent and tender 6 15+ years Worsened in recent months: Yes standing and sitting bed rest, elevating extremities, compression stockings and other Reports edema, leg edema and other History of lower extremity trauma: No Superficial thrombophlebitis: No Family history of varicose veins: yes Has patient had previous lower extremity venous surgery: No Patient has previously received the following treatment(s) for lower extremity varicose veins: Reports vein ablation (Rt GSV, Rt SSV, Lt GSV) and sclerotherapy Does patient have a history of : yes Does patient intend to have future pregnancies: no Has patient had lower extremity venous scan with relux testing: Yes Support hose used: Yes (15+ years) Problems walking or doing physical activity: No How does it affect you: prolonged sitting required for work Do you walk much: Yes Do you stand much: Yes Medication compliance: good Large amounts of Vitamin K: No Review of Systems ROS Narrative Heriberto Miller MD personally performed the services described in this documentation, as scribed by Roma Arevalo RVT, RDMS in my presence and it is both accurate and complete. Roma Miller RVT, RDMS, am scribing for, and in the presence of, Dr. Heriberto Barnes and in the presence of the patient. Status of ROS 10 or more systems reviewed and unremark able except as noted in history and below Cardiovascular Reports: edema, swelling of feet/ankles and leg pain with exertion Musculoskeletal Reports: extremity pain, extremity swelling and muscle cramps Integumentary/Breast Reports: itching, skin pain, skin tenderness, skin swelling and changes in skin color [facility] Medical History (Updated 01/29/24 @ 07:47 by Rj Mathur) Phlebitis of superficial vein of left lower extremity ?I80.02 - Phlebitis and thrombophlebitis of superficial vessels of left lower extremity (ICD-10) Phlebitis and thrombophlebitis of superficial vessels of right lower extremity ?I80.01 - Phlebitis and thrombophlebitis of superficial vessels of right lower extremity (ICD-10) Parity 3 ?Z87.898 - Personal history of other specified conditions (ICD-10) 4 Onychomycosis ?B35.1 - Tinea unguium (ICD-10) Hypothyroidism ?E03.9 - Hypothyroidism, unspecified (ICD-10) Depression ?F32.A - Depression, unspecified (ICD-10) Varicose veins of bilateral lower extremities with pain ?I83.813 - Varicose veins of bilateral lower extremities with pain (ICD-10) Migraine ?G43.909 - Migraine, unspecified, not intractable, without status migrainosus (ICD-10) Telangiectasia ?I78.1 - Nevus, non-neoplastic (ICD-10) Surgical History (Updated 03/31/24 @ 16:20 by Rj Mathur) S/P sclerotherapy of varicose veins ?Z98.890 - Other specified postprocedural states (ICD-10) ?Z86.79 - Personal history of other diseases of the circulatory system (ICD- 10) Status post laser ablation of incompetent vein ?Z98.890 - Other specified postprocedural states (ICD-10) S/P sclerotherapy of varicose veins ?Z98.890 - Other specified postprocedural states (ICD-10) ?Z86.79 - Personal history of other diseases of the circulatory system (ICD- 10) History of laparoscopy-assisted vaginal hysterectomy ?Z90.710 - Acquired absence of both cervix and uterus (ICD-10) Previous section ?Z98.891 - History of uterine scar from previous surgery (ICD-10) Family History (Updated 12/31/23 @ 15:22 by Roma Arevalo) Father Family history of cancer Family history of hypertension Mother Family history of hypertension Varicose veins of bilateral lower extremities with pain Social History (Updated 12/31/23 @ 15:22 by Roma Arevalo) Within the past year, how often did you have a drink containing alcohol: 2-4 times a month Smoking status: Never smoker Non-prescribed substance use: denies use Meds Home Medications and Allergies Home Medications ?Medication ?Instructions ?Recorded ?Confirmed ?Type albuterol 90 mcg-budesonide 80 2 inh inhalation DAILY PRN 12/31/23 12/31/23 History mcg/actuation HFA aerosol inhaler shortness of breath (Airsupra) amoxicillin 875 mg-potassium 1 tab PO BID 12/31/23 12/31/23 History clavulanate 125 mg tablet atogepant 60 mg tablet (Qulipta) 60 mg PO DAILY 12/31/23 12/31/23 History fluoxetine 20 mg capsule 20 mg PO DAILY 12/31/23 12/31/23 History levothyroxine 75 mcg tablet 75 mcg PO DAILY 12/31/23 12/31/23 History (Euthyrox) rizatriptan 10 mg tablet (Maxalt) See Rx Instructions PO .COMPLEX 12/31/23 12/31/23 History terbinafine HCl 250 mg tablet 250 mg PO DAILY 12/31/23 12/31/23 History ubrogepant 100 mg tablet (Ubrelvy) mg 12/31/23 History Allergies Allergy/AdvReac Type Severity Reaction Status Date / Time No Known Drug Allergies Allergy Verified 10/19/23 15:25 Exam Narrative Exam Narrative: Heriberto Miller MD personally performed the services described in this documentation, as scribed by Roma Arevalo RVT, RDMS in my presence and it is both accurate and complete. Roma Miller RVT, RDMS, am scribing for, and in the presence of, Dr. Heriberto Barnes and in the presence of the patient. Constitutional Documenting provider has reviewed patient's vital signs: yes Common normals: oriented x3 Lymph Lymphatic: no lymphedema noted Cardio Common normals: regular rate Rate: regular rate Peripheral pulses: posterior tibial pulses present and dorsalis pedis pulses present Extremity Common normals: normal capillary refill General: calf tenderness and edema Right lower extremity: upper leg and lower leg Left lower extremity: upper leg and lower leg Neuro Common normals: oriented x3 Results Imaging Venous US: Radiologist's impression: The ultrasound demonstrates Varithena induced thrombus visualized at mid/lat calf and dist/med calf. Assessment and Plan Assessment and Plan (1) Phlebitis and thrombophlebitis of superficial vessels of right lower extremity: (2) Varicose veins of bilateral lower extremities with pain: Plan Patient in today for follow up ultrasound of lower extremity following treatment of Varithena/microfoam completed on 03/31/24.
--- NOTE | 2024-04-08 15:19 | P.DS_ITS ---
Discharge Plan Discharge Disposition: Home, Self-Care Outpatient Diagnostics: VC INJ Sclerosing SOLMULT Vein (Routine) Timeframe: 2 Weeks Facility: [facility] - Location: [facility] Ordered By: Heriberto Barnes Follow Up Appointments: 04/14/24 Plan of Treatment: Sclerotherapy Print Language: Danish Discharge Date/Time: 04/08/24 15:28
== END 2024-04-08 15:28 | disposition home or self-care (01) ==
PROVIDERS: PCP Radiology Diagnostic Radiology; Visit Provider Radiology Diagnostic Radiology
DX: I80.01 Phlebitis and thrombophlebitis of superficial vessels of right lower extremity (principal)
CPT/HCPCS: 93971; G0463

== ENCOUNTER 2024-04-14 15:03 | Outpatient (OUT) | payer OTHER, SELFPAY ==
--- NOTE | 2024-04-11 09:01 | VEINCLINIC_ITS ---
Varicose Veins Patient in today for sclerotherapy Delbert Miller MD personally performed the services described in this docu mentation, as scribed by Rj Mathur RN in my presence and it is both accurate and complete. IRj RN, am scribing for, and in the presence of, Dr. Delbert Rosa and in the presence of the patient. medial thigh: bilateral, knee: bilateral, calf: bilateral, ankle: bilateral and nunes: bilateral sharp, intermittent and tender 6 15+ years Worsened in recent months: Yes standing and sitting bed rest, elevating extremities, compression stockings and other Reports edema, leg edema and other History of lower extremity trauma: No Superficial thrombophlebitis: No Family history of varicose veins: yes Has patient had previous lower extremity venous surgery: No Patient has previously received the following treatment(s) for lower extremity varicose veins: Reports vein ablation (Rt GSV, Rt SSV, Lt GSV) and sclerotherapy Does patient have a history of : yes Does patient intend to have future pregnancies: no Has patient had lower extremity venous scan with relux testing: Yes Support hose used: Yes (15+ years) Problems walking or doing physical activity: No How does it affect you: prolonged sitting required for work Do you walk much: Yes Do you stand much: Yes Medication compliance: good Large amounts of Vitamin K: No Review of Systems ROS Narrative Delbert Miller MD personally performed the services described in this documentation, as scribed by Rj Mathur RN in my presence and it is both accurate and complete. Rj Miller RN, am scribing for, and in the presence of, Dr. Delbert Rosa and in the presence of the patient. Status of ROS 10 or more systems reviewed and unremark able except as noted in history and below Cardiovascular Reports: edema, swelling of feet/ankles and leg pain with exertion Musculoskeletal Reports: extremity pain, extremity swelling and muscle cramps Integumentary/Breast Reports: itching, skin pain, skin tenderness, skin swelling and changes in skin color [facility] Medical History (Updated 01/29/24 @ 07:47 by Rj Mathur) Phlebitis of superficial vein of left lower extremity ?I80.02 - Phlebitis and thrombophlebitis of superficial vessels of left lower extremity (ICD-10) Phlebitis and thrombophlebitis of superficial vessels of right lower extremity ?I80.01 - Phlebitis and thrombophlebitis of superficial vessels of right lower extremity (ICD-10) Parity 3 ?Z87.898 - Personal history of other specified conditions (ICD-10) 4 Onychomycosis ?B35.1 - Tinea unguium (ICD-10) Hypothyroidism ?E03.9 - Hypothyroidism, unspecified (ICD-10) Depression ?F32.A - Depression, unspecified (ICD-10) Varicose veins of bilateral lower extremities with pain ?I83.813 - Varicose veins of bilateral lower extremities with pain (ICD-10) Migraine ?G43.909 - Migraine, unspecified, not intractable, without status migrainosus (ICD-10) Telangiectasia ?I78.1 - Nevus, non-neoplastic (ICD-10) Surgical History (Updated 04/14/24 @ 15:47 by Rj Mathur) S/P sclerotherapy of varicose veins ?Z98.890 - Other specified postprocedural states (ICD-10) ?Z86.79 - Personal history of other diseases of the circulatory system (ICD- 10) S/P sclerotherapy of varicose veins ?Z98.890 - Other specified postprocedural states (ICD-10) ?Z86.79 - Personal history of other diseases of the circulatory system (ICD- 10) Status post laser ablation of incompetent vein ?Z98.890 - Other specified postprocedural states (ICD-10) S/P sclerotherapy of varicose veins ?Z98.890 - Other specified postprocedural states (ICD-10) ?Z86.79 - Personal history of other diseases of the circulatory system (ICD- 10) History of laparoscopy-assisted vaginal hysterectomy ?Z90.710 - Acquired absence of both cervix and uterus (ICD-10) Previous section ?Z98.891 - History of uterine scar from previous surgery (ICD-10) Family History (Updated 12/31/23 @ 15:22 by Roma Arvealo) Father Family history of cancer Family history of hypertension Mother Family history of hypertension Varicose veins of bilateral lower extremities with pain Social History (Updated 12/31/23 @ 15:22 by Roma Arevalo) Within the past year, how often did you have a drink containing alcohol: 2-4 times a month Smoking status: Never smoker Non-prescribed substance use: denies use Meds Home Medications and Allergies Home Medications ?Medication ?Instructions ?Recorded ?Confirmed ?Type albuterol 90 mcg-budesonide 80 2 inh inhalation DAILY PRN 12/31/23 12/31/23 History mcg/actuation HFA aerosol inhaler shortness of breath (Airsupra) amoxicillin 875 mg-potassium 1 tab PO BID 12/31/23 12/31/23 History clavulanate 125 mg tablet atogepant 60 mg tablet (Qulipta) 60 mg PO DAILY 12/31/23 12/31/23 History fluoxetine 20 mg capsule 20 mg PO DAILY 12/31/23 12/31/23 History levothyroxine 75 mcg tablet 75 mcg PO DAILY 12/31/23 12/31/23 History (Euthyrox) rizatriptan 10 mg tablet (Maxalt) See Rx Instructions PO .COMPLEX 12/31/23 12/31/23 History terbinafine HCl 250 mg tablet 250 mg PO DAILY 12/31/23 12/31/23 History ubrogepant 100 mg tablet (Ubrelvy) mg 12/31/23 History Allergies Allergy/AdvReac Type Severity Reaction Status Date / Time No Known Drug Allergies Allergy Verified 10/19/23 15:25 Exam Narrative Exam Narrative: Delbert Miller MD personally performed the services described in this documentation, as scribed by Rj Mathur RN in my presence and it is both accurate and complete. Rj Miller RN, am scribing for, and in the presence of, Dr. Delbert Rosa and in the presence of the patient. Constitutional Documenting provider has reviewed patient's vital signs: yes Common normals: oriented x3 Lymph Lymphatic: no lymphedema noted Cardio Common normals: regular rate Rate: regular rate Peripheral pulses: posterior tibial pulses present and dorsalis pedis pulses present Extremity Common normals: normal capillary refill General: calf tenderness and edema Right lower extremity: upper leg and lower leg Left lower extremity: upper leg and lower leg Neuro Common normals: oriented x3 Assessment and Plan Assessment and Plan (1) Varicose veins of bilateral lower extremities with pain: Plan additional sclerotherapy Delbert Miller MD personally performed the services described in this documentation, as scribed by Rj Mathur RN in my presence and it is both accurate and complete. Rj Miller RN, am scribing for, and in the presence of, Dr. Delbert Rosa and in the presence of the patient. Procedures Procedure Instructions Procedures sclerotherapy: Risks and benefits of the procedure were discussed at length and informed written consent was obtained.? Time-out procedure was performed and the correct patient and procedure were confirmed.? Staff present during time-out: Rj Mathur RN and Delbert Rosa MD.? Patient prepped and procedure performed in usual sterile fashion. Injections performed by and Rj Mathur RN Sclerosing Agent:?? 4cc 0.5% Polidocanol Site Injected: right leg Number of Injections: 32 Anesthesia: Supercooled air The patient tolerated the procedure well without complication.? Hemostasis was obtained and thigh-high compression stocking was applied by patient.? Instructed patient to wear stocking for at least 96 hours and sleep with it and only remove for showering.? Will wear stocking for 2 weeks.? The patient verbalizes understanding and states they will comply.? Patient was given post-procedure instructions. Patient was discharged in good condition.? Scheduled to undergo additional injection sclerotherapy on 04/17/2024 Delbert Miller MD personally performed the services described in this documentation, as scribed by Rj Mathur RN in my presence and it is both accurate and complete. Rj Miller RN, am scribing for, and in the presence of, Dr. Delbert Rosa and in the presence of the patient.
--- NOTE | 2024-04-11 09:04 | P.DS_ITS ---
Discharge Plan Discharge Disposition: Home, Self-Care Outpatient Diagnostics: VC INJ Sclerosing SOLMULT Vein (Routine) Timeframe: 2 Weeks Facility: [facility] - Location: Vein Center Ordered By: Delbert Rosa Follow Up Appointments: 04/17/2024 Plan of Treatment: additional sclerotherapy Patient Instructions: Polidocanol (By injection) (Chet Condonthetimi) Print Language: Hungarian Discharge Date/Time: 04/14/24 15:49
--- NOTE | 2024-04-14 15:04 | VEIN_ITS ---
[address] [address] Patient Name: ANUPAMA CARDOSO MRN: [id number] date: 1965 Sex: F Assigned Patient Location: Current Patient Location: Accession/Order Number: [id number] Exam Date: 04/14/2024 15:04 Report Date: 04/14/2024 16:00 At the request of: JOSE FISHER Procedure: VC INJ Sclerosing SOLMULT Vein EXAMINATION: VC INJ Sclerosing SOLMULT Vein HISTORY: I83.813 - Varicose veins of bilateral lower extremities w... COMPARISON: No relevant comparison available. TECHNIQUE: The risks and benefits of the procedure were explained at length to the patient and informed written consent was obtained. Rj Mathur was present and assisted. The procedure was performed under sterile technique. The patient's leg was wrapped with Coban and postprocedural verbal and written instructions provided. SCLEROSANT: 42 cc, 0.5% polidocanol VEIN(S) INJECTED: 32 veins in the right leg VISUALIZATION: Ultrasound was not used to visualize the sclerosant ANESTHESIA: Supercooled air COMPLICATIONS: None VEIN/VC INJ Sclerosing SOLMULT Vein IMPRESSION: Technically successful sclerotherapy as described Electronically authenticated by: FRANCES LEWIS Date: 04/14/2024 16:00
== END 2024-04-14 15:49 | disposition home or self-care (01) ==
LOC: VC 15:03
PROVIDERS: PCP Radiology Diagnostic Radiology; Visit Provider Radiology Diagnostic Radiology
DX: I83.813 Varicose veins of bilateral lower extremities with pain (principal)
CPT/HCPCS: 36471

== ENCOUNTER 2024-04-17 14:51 | Outpatient (OUT) | payer OTHER, SELFPAY ==
--- NOTE | 2024-04-17 08:14 | VEINCLINIC_ITS ---
Vital Signs 04/17/24 15:41 BP 104/62 BP Location Right Brachial BP Position Sitting BP Cuff Size Adult BP Source Manual Cuff Respiration 16 Pulse 73 Pulse Source Monitor Pulse Oximetry (%) 98 Oxygen Delivery Method Room Air Varicose Veins Patient in today for sclerotherapy Delbert Miller MD personally performed the services described in this documentation, as scribed by Rj Mathur RN in my presence and it is both accurate and complete. Rj Miller RN, am scribing for, and in the presence of, Dr. Delbert Rosa and in the presence of the patient. medial thigh: bilateral, knee: bilateral, calf: bilateral, ankle: bilateral and nunes: bilateral sharp, intermittent and tender 6 15+ years Worsened in recent months: Yes standing and sitting bed rest, elevating extremities, compression stockings and other Reports edema, leg edema and other History of lower extremity trauma: No Superficial thrombophlebitis: No Family history of varicose veins: yes Has patient had previous lower extremity venous surgery: No Patient has previously received the following treatment(s) for lower extremity varicose veins: Reports vein ablation (Rt GSV, Rt SSV, Lt GSV) and sclerotherapy Does patient have a history of : yes Does patient intend to have future pregnancies: no Has patient had lower extremity venous scan with relux testing: Yes Support hose used: Yes (15+ years) Problems walking or doing physical activity: No How does it affect you: prolonged sitting required for work Do you walk much: Yes Do you stand much: Yes Medication compliance: good Large amounts of Vitamin K: No Review of Systems ROS Narrative Delbert Miller MD personally performed the services described in this documentation, as scribed by Rj Mathur RN in my presence and it is both accurate and complete. Rj Miller RN, am scribing for, and in the presence of, Dr. Delbert Rosa and in the presence of the patient. Status of ROS 10 or more systems reviewed and unremark able except as noted in history and below Cardiovascular Reports: edema, swelling of feet/ankles and leg pain with exertion Musculoskeletal Reports: extremity pain, extremity swelling and muscle cramps Integumentary/Breast Reports: itching, skin pain, skin tenderness, skin swelling and changes in skin color [facility] Medical History (Updated 01/29/24 @ 07:47 by Rj Mathur) Phlebitis of superficial vein of left lower extremity ?I80.02 - Phlebitis and thrombophlebitis of superficial vessels of left lower extremity (ICD-10) Phlebitis and thrombophlebitis of superficial vessels of right lower extremity ?I80.01 - Phlebitis and thrombophlebitis of superficial vessels of right lower extremity (ICD-10) Parity 3 ?Z87.898 - Personal history of other specified conditions (ICD-10) 4 Onychomycosis ?B35.1 - Tinea unguium (ICD-10) Hypothyroidism ?E03.9 - Hypothyroidism, unspecified (ICD-10) Depression ?F32.A - Depression, unspecified (ICD-10) Varicose veins of bilateral lower extremities with pain ?I83.813 - Varicose veins of bilateral lower extremities with pain (ICD-10) Migraine ?G43.909 - Migraine, unspecified, not intractable, without status migrainosus (ICD-10) Telangiectasia ?I78.1 - Nevus, non-neoplastic (ICD-10) Surgical History (Updated 04/17/24 @ 15:42 by Rj Mathur) S/P sclerotherapy of varicose veins ?Z98.890 - Other specified postprocedural states (ICD-10) ?Z86.79 - Personal history of other diseases of the circulatory system (ICD- 10) S/P sclerotherapy of varicose veins ?Z98.890 - Other specified postprocedural states (ICD-10) ?Z86.79 - Personal history of other diseases of the circulatory system (ICD- 10) S/P sclerotherapy of varicose veins ?Z98.890 - Other specified postprocedural states (ICD-10) ?Z86.79 - Personal history of other diseases of the circulatory system (ICD- 10) Status post laser ablation of incompetent vein ?Z98.890 - Other specified postprocedural states (ICD-10) S/P sclerotherapy of varicose veins ?Z98.890 - Other specified postprocedural states (ICD-10) ?Z86.79 - Personal history of other diseases of the circulatory system (ICD- 10) History of laparoscopy-assisted vaginal hysterectomy ?Z90.710 - Acquired absence of both cervix and uterus (ICD-10) Previous section ?Z98.891 - History of uterine scar from previous surgery (ICD-10) Family History (Updated 12/31/23 @ 15:22 by Roma Arevalo) Father Family history of cancer Family history of hypertension Mother Family history of hypertension Varicose veins of bilateral lower extremities with pain Social History (Updated 12/31/23 @ 15:22 by Roma Arevalo) Within the past year, how often did you have a drink containing alcohol: 2-4 times a month Smoking status: Never smoker Non-prescribed substance use: denies use Meds Home Medications and Allergies Home Medications ?Medication ?Instructions ?Recorded ?Confirmed ?Type albuterol 90 mcg-budesonide 80 2 inh inhalation DAILY PRN 12/31/23 12/31/23 History mcg/actuation HFA aerosol inhaler shortness of breath (Airsupra) amoxicillin 875 mg-potassium 1 tab PO BID 12/31/23 12/31/23 History clavulanate 125 mg tablet atogepant 60 mg tablet (Qulipta) 60 mg PO DAILY 12/31/23 12/31/23 History fluoxetine 20 mg capsule 20 mg PO DAILY 12/31/23 12/31/23 History levothyroxine 75 mcg tablet 75 mcg PO DAILY 12/31/23 12/31/23 History (Euthyrox) rizatriptan 10 mg tablet (Maxalt) See Rx Instructions PO .COMPLEX 12/31/23 12/31/23 History terbinafine HCl 250 mg tablet 250 mg PO DAILY 12/31/23 12/31/23 History ubrogepant 100 mg tablet (Ubrelvy) mg 12/31/23 History Allergies Allergy/AdvReac Type Severity Reaction Status Date / Time No Known Drug Allergies Allergy Verified 10/19/23 15:25 Exam Narrative Exam Narrative: Delbert Miller MD personally performed the services described in this documentation, as scribed by Rj Mathur RN in my presence and it is both accurate and complete. IRj RN, am scribing for, and in the presence of, Dr. Delbert Rosa and in the presence of the patient. Constitutional Documenting provider has reviewed patient's vital signs: yes Common normals: oriented x3 Lymph Lymphatic: no lymphedema noted Cardio Common normals: regular rate Rate: regular rate Peripheral pulses: posterior tibial pulses present and dorsalis pedis pulses present Extremity Common normals: normal capillary refill General: calf tenderness and edema Right lower extremity: upper leg and lower leg Left lower extremity: upper leg and lower leg Neuro Common normals: oriented x3 Assessment and Plan Assessment and Plan (1) Varicose veins of bilateral lower extremities with pain: Plan additional sclerotherapy IDelbert MD personally performed the services described in this documentation, as scribed by Rj Mathur RN in my presence and it is both accurate and complete. IRj RN, am scribing for, and in the presence of, Dr. Delbert Rosa and in the presence of the patient. Procedures Procedure Instructions Procedures sclerotherapy: Risks and benefits of the procedure were discussed at length and informed written consent was obtained.? Time-out procedure was performed and the correct patient and procedure were confirmed.? Staff present during time-out: Rj Mathur RN and Delbert Rosa MD.? Patient prepped and procedure performed in usual sterile fashion. Injections performed by and Rj Mathur RN Sclerosing Agent:?? 4cc 0.5% Polidocanol Site Injected: left leg Number of Injections: 28 Anesthesia: Supercooled air The patient tolerated the procedure well without complication.? Hemostasis was obtained and thigh-high compression stocking was applied by patient.? Instructed patient to wear stocking for at least 96 hours and sleep with it and only remove for showering.? Will wear stocking for 2 weeks.? The patient verbalizes understanding and states they will comply.? Patient was given post-procedure instructions. Patient was discharged in good condition.? Scheduled to undergo additional injection sclerotherapy on 04/29/2024.
--- NOTE | 2024-04-17 08:15 | W.VEIN ---
Discharge Plan Discharge Disposition: Home, Self-Care Outpatient Diagnostics: VC INJ Sclerosing SOLMULT Vein (Routine) Timeframe: 2 Weeks Facility: [facility] - Location: Vein Center Ordered By: Delbert Rosa Plan of Treatment: further sclerotherapy Patient Instructions: Polidocanol (By injection) Print Language: [place] Discharge Date/Time: 04/17/24 15:45
--- NOTE | 2024-04-17 14:55 | VEIN_ITS ---
[address] [address] Patient Name: ANUPAMA CARDOSO MRN: [id number] date: 1965 Sex: F Assigned Patient Location: Current Patient Location: Accession/Order Number: [id number] Exam Date: 04/17/2024 14:56 Report Date: 04/18/2024 08:13 At the request of: FRANCES LEWIS Procedure: VC INJ Sclerosing SOLMULT Vein EXAMINATION: VC INJ Sclerosing SOLMULT Vein HISTORY: I83.813 - Varicose veins of bilateral lower extremities w... COMPARISON: No relevant comparison available. TECHNIQUE: The risks and benefits of the procedure were explained at length to the patient and informed written consent was obtained. Rj Mathur was present and assisted. The procedure was performed under sterile technique. The patient's leg was wrapped with Coban and postprocedural verbal and written instructions provided. SCLEROSANT: 4 cc, 0.5% polidocanol VEIN(S) INJECTED: 28 veins in the left leg VISUALIZATION: Ultrasound was not used to visualize the sclerosant ANESTHESIA: Supercooled air COMPLICATIONS: None VEIN/VC INJ Sclerosing SOLMULT Vein IMPRESSION: Technically successful sclerotherapy as described Electronically authenticated by: FRANCES LEWIS Date: 04/18/2024 08:13
--- OUTSIDE RECORDS SUMMARY | 2024-04-17 15:03 | XMS_ITS | CCD ---
Author Organization [facility] Inform ion Partnership [facility] Care Team Providers Care Science Job Titles Name Role Phone Daisy ALEXANDER Primary Care Physician Charley BARNETT Attending Unavailable Charley BARNETT Admitting Unavailable Daisy Alexander NP Unavailable Vita Gonzalez MD Primary Care Provider DAISY ALEXANDER Attending Unavailab DAISY Burden Attending Unavailab NALLELY Green Attending Unavailable Medications Current Medications Medication Drug Class(es) Dates Sig (Normalized) Sig (Original) [id number] 200 actuat albuterol 0.09 mg/actuat metered dose inhaler (3 sources) beta2-Adrenergic Agonist Start: 09-18-2023 take 2 puff(s) by inhalation every four hours albuterol HFA 90 mcg/act inhaler Indications: Acute cough , Mild shortness of breath Inhale 2 puffs every 4 (four) hours if needed for shortness of breath 18 g 09/18/2023 Active Atogepant (Qulipta) 60 MG tablet (3 sources) Start: 03-28-2024 End: 03-28-2025 take 1 tablet by mouth once daily Atogepant (Qulipta) 60 MG tablet Indications: Other migraine without status migrainosus, not intractable (CMS/HCC) Take 60 mg by mouth Daily 90 tablet 3 03/28/2024 03/28/2025 Active ciclopirox 80 mg/ml topical solution (3 sources) Start: 08-24-2021 ciclopirox topical 8% solution 1 kelsi, Topical, Daily, 9.9 mL, Refill(s) 2, Apply to adjacent skin and affected nails daily. Remove with alcohol every 7 days., [facility], 170, cm, 08/24/21 14:04:00 EST, Height/Length Dosing, 92.1, kg, 08/24/21 14:04:00 EST, Weight Dosing Start Date: 08/24/21 Status: Ordered dextromethorphan hydrobromide 3 mg/ml / promethazine hydrochloride 1.25 mg/ml oral solution (3 sources) Phenothiazine, Uncompetitive P-gysmzg-Y-aspartat e Receptor Antagonist, Sigma-1 Agonist Start: 09-18-2023 promethazine-dex tromethorphan (Phenergan-DM) 6.25-15 MG/5ML syrup Indications: Acute cough Take 5 mL by mouth every 6 (six) hours if needed for cough 180 mL 09/18/2023 Active FLUoxetine 20 mg oral capsule (6 sources) Serotonin Reuptake Inhibitor Start: 03-18-2024 take 1 capsule by mouth once daily FLUoxetine (PROzac) 20 MG capsule Indications: Major depressive disorder, single episode, mild (HCC) (CMS/HCC) Take 1 capsule (20 mg) by mouth Daily 90 capsule 3 03/18/2024 Active Start: 12-18-2014 take 1 capsule by [facility] once daily FLUoxetine 20 mg Cap 20 mg = 1 cap(s), Oral, Daily, Refills(s) 0, Depression Start Date: 12/18/14 Status: Ordered levothyroxine sodium 0.075 mg oral tablet (6 sources) l-Thyroxine Start: 03-18-2024 take 1 tablet by mouth once daily levothyroxine (Synthroid, Levoxyl) 75 MCG tablet Indications: Hypothyroidism (acquired) (CMS/HCC) Take 1 tablet (75 mcg) by mouth Daily 90 tablet 3 03/18/2024 Active Start: 07-07-2019 levothyroxine 50 mcg (0.05 mg) Tab Refills(s) 0 Start Date: 07/07/19 Status: Ordered rizatriptan 10 mg oral tablet (6 sources) Serotonin-1b and Serotonin-1d Receptor Agonist Start: 05-18-2023 take 1 tablet by mouth once as needed for headache, then take 1 tablet by mouth once daily as needed for headache, then take 1 tablet by mouth every two hours as needed for headache rizatriptan (Maxalt) 10 MG tablet Indications: Other headache syndrome Take 1 tablet (10 mg) by mouth 1 (one) time if needed for migraine. 1 tablet Orally Once a day prn migraine headache. If symptoms persist or return, may repeat dose after 2 hours. 9 tablet 05/18/2023 Active Start: 08-24-2021 Maxalt 10 mg T ab 10 mg = 1 tab(s), Oral, Daily, PRN Migraine headache, one po at onset migraine. May repeat after 2hrs prn then not again for 24hrs, # 18 tab(s), Refills(s) 1, Pharmacy: [facility] [facility], 170, cm, 08/24/21 14:04:00 EST, Height/Length Dosing, 92.1, kg, 08/24/21 14:04:00 EST, Weight Dosing Start Date: 08/24/21 Status: Ordered terbinafine 250 mg oral tablet (3 sources) Allylamine Antifungal Start: 09-19-2023 take 1 tablet by mouth once daily terbinafine (LamISIL) 250 MG tablet Indications: Onychomycosis of great toe Take 1 tablet (250 mg) by mouth Daily 30 tablet 1 09/19/2023 Active ubrogepant 100 mg oral tablet (3 sources) Start: 03-18-2024 take 1 tablet by mouth once daily as needed for headache Ubrogepant (Ubrelvy) 100 MG tablet Indications: Other migraine without status migrainosus, not intractable (CMS/HCC) Take 100 mg by mouth Daily as needed (migraine headache) 16 tablet 11 03/18/2024 Active Ventolin HFA 90 mcg/inh Aerosol (3 sources) Start: 07-05-2020 take 2 puff(s) by inhalation four times daily Ventolin HFA 90 mcg/inh Aerosol 2 puff(s), Inhalation, QID Shortness of breath or wheezing, 1 EA, Refill(s) 0, [facility], 170, cm, 07/05/20 14:58:00 EST, Height/Length Dosing, 93.5, kg, 07/05/20 14:58:00 EST, Weight Dosing Start Date: 07/05/20 Status: Ordered Problems Active Problems Problem Classification Problem Date Documented Da te Episodic/Chronic Headache; including migraine (6 sources) Migraine; Translations: [Migraine, unspecified, not intractable, without status migrainosus] Onset: 08-28-2023 07-07-2019 Chronic Hemorrhoids (3 sources) Hemorrhoids 07-27-2021 Episodic Mood disorders (3 sources) Mild major depression 07-07-2019 Chronic Neoplasms of unspecified nature or uncertain behavior (2 sources) Neoplastic disease; Translations: [Neoplasm of unspecified behavior of bone, soft tissue, and skin] 04-01-2024 Episodic Other and unspecified benign neoplasm (3 sources) Polyp of colon 07-27-2021 Episodic Other and unspecified benign neoplasm (2 sources) Melanocytic nevus of trunk; Translations: [Melanocytic nevi of trunk] 04-01-2024 Episodic Other and unspecified benign neoplasm (2 sources) Melanocytic nevi of unspecified part of face; Translations: [Benign neoplasm of skin of other and unspecified parts of face] 04-01-2024 Episodic Other circulatory disease (2 sources) Spider nevus; Translations: [Nevus, non-neoplastic] 04-01-2024 Episodic Other nutritional; endocrine; and metabolic disorders (3 sources) Body mass index 30+ - obesity 08-24-2021 Chronic Other nutritional; endocrine; and metabolic disorders (3 sources) Simple obesity 07-05-2020 Chronic Other skin disorders (2 sources) Lentigo simplex; Translations: [Other melanin hyperpigmentation] 04-01-2024 Episodic Other skin disorders (2 sources) Seborrheic keratosis; Translations: [Other seborrheic keratosis] 04-01-2024 Episodic Other skin disorders (2 sources) Actinic keratosis; Translations: [Actinic keratosis] 04-01-2024 Episodic Thyroid disorders (6 sources) Hypothyroidism; Translations: [Acquired hypothyroidism] Onset: 08-28-2023 07-07-2019 Chronic Past or Other Problems Problem Classification Problem Date Documented Date Episodic/Chronic Mycoses (6 sources) Onychomycosis of toenails; Translations: [Tinea unguium] Onset: 08-28-2023 08-24-2021 Episodic Results Test Name Value Interpretation Reference Range Facility No Panel Informationon 04-01 Type of biopsy: tangential Informed consent: discussed and consent obtained Informed consent comment: The risks and benefits of the biopsy were discussed. Risks include but are not limited to bleeding, infection, scarring, pain, and nerve damage. An opportunity to ask questions prior to the procedure was permitted and all questions were answered. Patient was prepped and draped in usual sterile fashion: area cleansed with alcohol. Anesthesia: the lesion was anesthetized in a standard fashion Anesthetic: 1% lidocaine w/ epinephrine 1-100,000 buffered w/ 8.4% NaHCO3 Instrument used: DermaBlade Hemostasis achieved with: electrodesiccation Outcome: patient tolerated procedure well Outcome comment: The specimen was placed in a prelabeled formalin container to be sent for pathology Post-procedure details: sterile dressing applied and wound care instructions given Post-procedure details comment: Emphasized need to contact clinic for any signs of infection, uncontrollable bleeding, or complications. Dressing type: bandage Additional details: Photo taken Amount of lidocaine used: 1.[address] [facility] Glu Fastingon 02-18-2024 Glucose [Mass/Vol] 86 mg/dL Normal 55-99 [facility] Comment on above: Performed By: #### 2 [id number] #### [facility] [address] [place] [address] Lipid Panelon 02-18-2024 Cholesterol [Mass/Vol] 164 mg/dL Normal 120-200 [facility] Comment on above: Performed By: #### [id number] #### [facility] [address] [place] [address] Cholesterol in HDL [Mass/Vol] 50 mg/dL Invalid Interpretation Code [facility] Comment on above: Result Comment: '>= 60 LOW RISK' '<= 40 HIGH RISK' Performed By: #### 2 [id number] #### [facility] [address] [place] [address] Cholesterol in LDL [Mass/Vol] 102 mg/dL Normal <=129 [facility] Comment on above: Performed By: #### 2 [id number] #### [facility] [address] [place] [address] Cholesterol in VLDL [Mass/Vol] 19 mg/dL Normal 7-40 [facility] Comment on above: Performed By: #### 2 [id number] #### [facility] [address] [place] [address] Triglyceride [Mass/Vol] 95 mg/dL Normal <=149 [facility] Comment on above: Performed By: #### 2 [id number] #### [facility] [address] [place] [address] CHEMISTRYOrdered By: SYSTEM SYSTEM on 07-11-2023 TSH Qn 1.44 m[IU]/L Normal 0.34 - 5.60 mcIU/mL Remisol Chem Physician Orderon 06-07-2023 Physician Order [id number]#[id number] 0TIFF Normal [facility] Coding Summary.on 06-15-2022 Coding Summary. [id number] Gh 0bWw+PGhlYWQ+ZN8GMWUvE 11uoENeqT8RE8zDEY7KZXV AWAEOSC7OIK0rnGK6MWwdF 2VybiAv RhhkvFViPX83ROh8FUH9uZ icMJesnC3uyMBaU2u0RyWs ZY27gB21MNcvUHLzIoY4Em ZpbjsgbWFy N2rsLxPazJOkSuh+PHRhYm xlIHdpZHRoPScxMDAlJyBz jUvlIU1qTc8wNCXeHTNqdS xhcHNlOiBj z1epGHKqPXciVF9wtLbiK1 XmoCV7BAKkg7h8Bd85jFC+ YTUlQNC7nEeqKElxd086St Yom1ltOXH5 iSTgMZyoXZU4B20pz1Y0LW ShKXOjMFQ0yET6oO1leIzc tsygL0VtxRFcCdV3BLJ6qE JuqJ9utEih rtypxT4kBju+J31DVH4BZW ADBJ5WXfk7Q5VnStyidAC+ MD66JMNgYX19aXFouEFbp6 mtaVv0HmQw UCVdUDI2bRmoJUzww3JhQI XxA03vcOZrt9O7MNUxqBnf hRJrAjRslLM9vH4iJDoipv mkt9mkotgx Iwmgr9goej96fS44Q92zFY rcLTPiETQ8BUTuZHZqgFin va7zlL2sNk1+CCxhq1ely0 xzwVg6DvHq EFMojwEwkQeeZEB7f0WnOt 21A0JmyPqfa3FkPuh9mm95 oBQzn0I6aYC6DWjuTHRhgY 4vJJtmBhQ2 VAUbLaSxvR73rHRrNKwvUp 6wwCkevPriJN2jJQVnvooq FVImyG2dTUAekAWkqHxmEJ 4wNTBpbjtm t570XbQcELR7QFSkkMHfA0 LcyQ8yPnKlJNZaHKJuA8Dd vUKiUGwgQ812VPspApJ4BZ NjupPeE3Pj LXPvoJuhNpE6l3N7Cp0Cm0 HtziojUOM6FFfjRHOxJlR0 AeTtOpL4C4UjRxu4LPPdnQ vuSK6zW2Oi AOKbmfbrkwzynEO1IXDfKL HxtT76jYFzZPjvEm7kn2B9 f038BCWtNXJbwC04De8qlU ogMTBwdCBU eC4dxxidq3bswcanGsVcUS DcHPk1EZl7VBWppHtzKiXh DGM2HrC1ISK6wQZnpE8ihU iszqymmH2j Oyc+H21viW2dKMD8CPO6oa fbBCWsgiEvQL58SR72W5Zw PjwvdGFibGU+PGRpdiBzdH smPP8xQzMs f8lsk4ZdROcjM0QnCQLzNT gsMkl3GOSsMPW6fYE7xW3y UWLbYUcjw0V1dVM4J3Qcup Culo7ok8jq CUEiBPfwC37glFMqr7T1GZ MzxJN2RYCzbHcjIaGdnR08 Oyc+XBZzsCzoc2RoGsswr1 iqe2hmhJv7 VeQsUHXnatFmvMzbSNR6z4 SqMi95X69nOEqiQURqSVSd SLDzHKFlaVuein6hvQ1gEm 8+PGNvbCB3 lEQ6yL2nLMIiAvQ1UDfrE7 24PtHnmLVjYbptk4dis6mx wLs0EwQwRVNsokQjrBlaLF K5f5AnSp84 G36lYBdiHUNqMFMbVTRcHH XmoVvqko6peA1xWa4+PC9j z2tlcu42sM57gBI+PHRkIH E2fSniUXpz TVRvxO2qCLkvNwS0YLCfOm YyzY78xHDtUUlvDl1slKnz uKkvMI7vXCGqgrjmr288Os Pvk2scJBSm qREjORhuKVV7Q03vv6O0FI FpEHSoKSB4oWG9lX1hlLlb bjogbGVmdDsgdmVydGljYW auQKcrL556 IHRvcDsnPlBhdGllbnQgTm JqUCl8G8StVco3VOHxaCnx PD7ohVAtFHpqEm0ukOiwvS obAS9xIYIz uufhz416JaTew1clMSUcyS GiURteAOC4P57kn6Z4FQXs OWHlCYH8tCR2mO8exLyuhr ogbGVmdDsg cqQtjTxpMJltZJboD604PO RvcDsnPkJpcnRoIERhdGU6 AN03XJ14fPCuk2Q5oPN4A1 BhZGRpbmct zaqhiFN6TBFyHCKsvQ72Dl 7kbIloJc1eBHSxWPI2HPUs eGUxV1OfeE5wLzBcKIXoLQ EzS7IgpPDl VIfwB778GSzoMyS7SBNqia DmT0HuRBUrsOalQyX8c3E1 Jq6BB3G5QH20ZT90tKTzl8 O1jBL7V0Cp SAOoyojuczqsjNR5TDCnPZ UnoX03Qt8hiHpsWt3cYOAz VHA8PRUtoSOeK2OvdF7uIa AjMDAwMDAw C0QoyJPpHUzvF218VLokLk V9HXLmdqGbB0MfVKGffRvp BvC6x6T2Sj5YRUe9EM40TU 80wRNur0S8 tRT5C7DaLIKmnaqjgyshgY H4VSVeRERayL46Nf3xkWca Ni6mICTkNQS8QXMxuCLqY1 JwhB1hFuLn SXQcSQUlE7WruSXnMVmaC1 16LIebVqV1KUUbieSmH8Sp XSJgjNsaKjM0j8K3Vo4UFH ObKV32SSL9 wPX3CQ26CF51M7JvEzkphT FibGU+PHRhYmxlIHdpZHRo CIauOISjQtMvxSsdXE9wXu 9yZGVyLWNv fNujgPHtPdYpl3jiPOYsEF goZP4hpRsbF1QrmDR4LDLo l5w7Ko24B26bU5QvvOD+PG LrfDP4nKT3 xI6tNoZnAmZ9AEgfS571Ce ElbYElGadyy8gqn5evlIn7 BeD8PKDaptJfqYzhEKO5y4 KgMo22C78u IHdpZHRoPSIxNSUiIHZhbG vnev4daZ8tDk1+PGNvbCB3 bTN4lV5jUdIpNsF7GFxvH0 49InRvcCIv Ihxth8rwa7yunSo0AwFbDB KrtgXsjDywYZL3f0VwIw21 R2OvfQycr0MsKmo8ob32qO Brx5N6wDM4 P6MsSKDyfchuqBRiaZhfDN 0kEBNzncguEYMamJ8kLDWi O3a9YzRhAvM2OZjiK6Yhxj V1AIYjmPRh EDsiWKK4B46th8W0IPQjTM PlQES3cHF8uJ9obRpkycku bGVmdDsgdmVydGljYWwtYW ohK905INOl tOfqYQWvvW6dUIPloPSluB akBU5vYKErpmnqNoMYWMtS QUFSLCBLQVRITEVFTiBNPC 26UF80hOUr w0I7mRA9H0AaNNLicbpuiq rohFI2ERBbGZQmiY21nQJr BOzjTr5sa0O7n017ZJRkPS YhfE08Pq2j rOysJTAycMJSpT1smftok6 nkriscCaGaBXDiGPz6QPo8 GIEygKzaSuNxCZF6XqW4MU J3jUDicU7l wZiqngroaM3aWvh+MDQvMD edGEf0RceosKM+PHRkIHN0 gKaxUPrnCGEjwO1lIFOnH5 u3QnRtYhW6 YLxoF5FoWABssnyeYr76iH 3hXkAaNgA6GByiE0YwrbC8 YDGmsVZtBUqmMIV5M42fh0 Q4EDEkVCTk GIJ2cJL0fL1swGkcbsxsmZ VmdDsgdmVydGljYWwtYWxp I323JKBvzTvlMiN6YMljHQ YvCS22YU69 uIWwl9L1uEA0S2CyXPNjcs lrqqnmlIZ5NUPyUBNsjY66 xJZiDPrlGl2wp7T5w010EQ AxFIBcbC19 Le4gnEhrFOZnbJOJpD0vop gvz5wnaqhuTvRfQSZyLRa6 REd6GOEbfNgkBtQaAKU1Rg B2WXY2lWGi tT9luNgrykesiX7pSll+Rm QrBPbpHA12XY60dOMvw2P5 dHH4T9JuZIXjpghrwyoabI R4ARMpITKo zY15jJStOQycNx0uu0E7k1 41ADNnDDQvxG71Lt2bxWao LGBokGWTlW9zlwsfk0whti ogIzAwMDAw DSh5YEy2YENgdXazYzUrZS E7JsT2QWH2wNEiqZ6aeVan zdkfsT1cDjp+P3D9pYQ6rC VudDwvdGQ+ EB54qr62P5PlLnypLqa1AS MpZBC9iTJ9nS6iMNMmIZaq w0H6qFN6X2TzqtCerv6ww3 xsYXBzZTog K78mpTOoz1G9FBAwoJC8RP FkxRyqJxEeyZ21Zcq+PGNv pQzds8QrQjims7rhl3xfzE j0QbSbQLVu unIvuEihVGV0i0TqPq23T9 9sIHdpZHRoPSIzMCUiIHZh nRocgf4khU8hMe8+PGNvbC M6xRE5sP5y RnXhQxN5ICatR237ZlLpiR PkYeqjk7uew6oibQx4LyPm GMEdimFbnQfgWSQ4n7CvLk 50V1WppDoa e6LfImp1tv85wEXcn5P8sP I7S3YlRNCdgmxntEIwnDbp NG9hSCQqtmupCTVvoK1uFQ VqC3m0JxAb TnB7UZmvA7PzolL9HIQpuC OrTKHrgHQNcQ4vpjcas5qb exgqGbRmOUTrSMd2DUn4TD FsaWduOiBs SIO6SfB4TYE2yGGzaN0ypY dddmnqqK9fEng+ZMw3p8tm vYZwII1uaBL9QT98CK64oH Ype1Q2eAO0 Q3NaGVHplupptieaeYB0RH ErCODvpF11Oq5uiQciBi7e NMGzZYU7PLRyeVEgD6MljU 9yOiAjMDAw HUJfP0FxyDQeMTetZ570VL imUhM2HZYpnbYwJ4TvORIf hDmzGxX9n0G5Kt6UEG22YA 91MP25uHBa r5P4zBH2W1CyCMPzhebist jbkPN4PCNeDVIzaA03Zp4l vVevGm9wADLcBOD9NBGnpW NcX8YqgB3x UfIpYPQtUDBzQ1WnyRIoKX wrT427KYhiBkK2LJAdeoBq R5UnOKJknHfbZkV0t7L9Hl 8CAe45BP99 QU98bMNyp4N6fCL7Z3MgEC DjoknfwflgwMA3XAEwROLv gH95Di8qwPalAu2lEUTfCZ P3RYTzcJQy T4YvtG3dRdGuDXVyIKJuJ0 WiaAHvUZtfC029WIvoTwV5 KKSrzzBnV1JsQWSduKtfQo K5i1F1Jv8H EYuhcue1Q1KaKpaxwLB+PC 53ATZgJZ53yGGreCZgy5go vBd9DnFjFUBsLHO1gAmaYM tda7FwYBDf Y29s (more content not included)... Normal [facility] CHEMISTRYOrdered By: SYSTEM SYSTEM on 06-09-2022 [...] MDRD (S/P/Bld) [Vol rate/Area] mL/min/1.73 m2 Normal >=59mL/min/1 .73 m2 FT Chem S GFR/1.73 sq M.predicted among non-blacks MDRD (S/P/Bld) [Vol rate/Area] mL/min/1.73 m2 Normal >=59mL/min/1 .73 m2 FT Chem S Globulin (S) [Mass/Vol] 3.5 g/dL Normal 1.4 - 4.0 gm/dL [facility] Remisol Glucose [Mass/Vol] 98 mg/dL Normal 55 - 199 mg/dL [facility] Remisol Potassium [Moles/Vol] 4.4 mmol/L Normal 3.5 - 5.3 mmol/L [facility] Remisol Protein [Mass/Vol] 7.9 g/dL High 6.0 - 7.8 gm/dL [facility] Remisol Sodium [Moles/Vol] 136 mmol/L Normal 135 - 145 mmol/L [facility] Remisol Triglyceride [Mass/Vol] 69 mg/dL Normal <=149mg/dL [facility] Remisol TSH Qn 0.75 m[IU]/L Normal 0.34 - 5.60 mcIU/mL [facility] Remisol Urea nitrogen [Mass/Vol] 14 mg/dL Normal 5 - 21 mg/dL [facility] Remisol Urea nitrogen/Creatinine [Mass ratio] 18 mg/mg Normal 10 - 20 [facility] Remisol HEMATOLOGYOrdered By: Darline lewis on 06-09-2022 Erythrocyte distribution width (RBC) [Ratio] 14.0 % Normal 10.9 - 14.2 % [facility] Hematocrit (Bld) [Volume fraction] 42.7 % Normal 34.0 - 46.0 % [facility] Hemoglobin (Bld) [Mass/Vol] 13.7 g/dL Normal 12.0 - 16.0 gm/dL [facility]eAutoSS MCH (RBC) [Entitic mass] 29.2 pg Normal 27.0 - 34.0 pg [facility] MCHC (RBC) [Mass/Vol] 32.0 g/dL Normal 31.4 - 36.0 gm/dL [facility]eAutoSS MCV (RBC) [Entitic vol] 91.1 fL Normal 80.0 - 100.0 fL [facility] Platelet mean volume (Bld) [Entitic vol] 10.3 fL Normal 6.4 - 10.8 fL [facility] Platelets (Bld) [#/Vol] 219.0 E9/L Normal 150.0 - 500.0 E9/L [facility] RBC (Bld) [#/Vol] 4.7 E12/L Normal 4.3 - 5.9 E12/L [facility] WBC corrected for nucl RBC Auto (Bld) [#/Vol] 5.7 E9/L Normal 4.0 - 11.0 E9/L [facility] Encounters Encounter Date Encounter Type Care Provider Facility Start: 04-01-2024 End: 04-01-2024 [facility] RICKIE Work Phone: [facility] Start: 04-01-2024 End: 04-01-2024 [facility] RICKIE Work Phone: [facility] Start: 04-01-2024 End: 04-01-2024 Office outpatient new 30 minutes [facility] RICKIE Work Phone: [facility] Comment on above: Melanocytic nevi of trunk (Primary Dx); Lentigo simplex; Melanocytic nevi of face; Seborrheic keratosis; Capillary angioma; Neoplasm of unspecified behavior of bone, soft tissue, and skin; Actinic keratosis Start: 04-01-2024 End: 04-01-2024 ambulatory NALLELY PLUNKETT Not Available Start: 02-18-2024 End: 02-18-2024 ambulatory Charley BARNETT Facility:[facility] Start: 09-18-2023 End: 09-18-2023 ambulatory DAISY Lino DONNAMILLER Not Available Start: 08-21-2023 End: 08-21-2023 ambulatory DAISY A DONNAMILLER Not Available Start: 07-11-2023 End: 07-11-2023 Patient encounter procedure Jonnathan Miranda [facility] Start: 06-09-2022 End: 06-09-2022 Patient encounter procedure Jonnathan Miranda [facility] Start: 05-10-2022 End: 05-10-2022 Lab Drop off Jonnathan Miranda [facility] Procedures Date Procedure Procedure Detail Performing Clinician Start: 04-01-2024 SKIN / NAIL BIOPSY Khurram washington Mcgillade DAMIAN Work Phone: Start: 04-01-2024 CRYOTHERAPY SKIN LESION Nallely Dimitrios DAMIAN Work Phone: Start: 07-11-2023 Mammography Nallely DAMIAN Work Phone: Start: 07-12-2021 Colonoscopy Nallely DAMIAN Work Phone: Start: 12-25-2014 left needle-localize d ultrasound-guided left breast biopsy times two Jonnathan Miranda Start: 07-02-2001 Diagnostic laparoscopy Jonnathan Miranda Comment on above: 2001 Start: 07-02-1999 section Jonnathan Miranda Breast biopsy and re lated procedures Jonnathan Miranda Comment on above: multiple both breast s Endometrial ablation Jonnathan Washburn mitchelljoe Excisional biopsy of breast Jonnathan Miranda Comment on above: left; 12/2003, 10/2006 Hernia repair Jonnathan Miranda Comment on above: pedriatric, right Plan of Treatment Date Care Activity Detail Author Start: 07-12-2031 Screening for malignant neoplasm of colon [facility] Start: 04-01-2025 End: 04-01-2025 Patient encounter procedure 04/01/2025 3:00 PM EDT Office Visit [facility] [address] [place] [phone] Nallely Plunkett PA [address] [place] [phone] [facility] Start: 07-11-2024 Screening for malignant neoplasm of breast Mammogram [facility] Start: 04-01-2024 End: 04-01-2024 Patient encounter procedure 04/01/2024 9:30 AM EDT Office Visit [facility] [address] [place] [phone] Nallely Plunkett PA [address] [place] [phone] Arrived [facility] Comment on above: Arrived Start: 03-02-2024 Influenza vaccination Influenza Vaccine (#1) [facility] Start: 1996 Screening for malignant neoplasm of cervix [facility] Start: 10-08-1987 Screening for malignant neoplasm of cervix Pap Smear [facility] Start: 1966 Screening for malignant neoplasm of colon [facility] Dermatopathology exam Dermatopat hology exam Pathology and Cytology Timed Neoplasm of unspecified behavior of bone, soft tissue, and skin Release Upon Ordering for 1 Occurrences starting 04/01/2024 [facility] Work Phone: Comment on above: Release Upon Ordering for 1 Occurrences starting 04/01/2024 Immunizations Immunization Date Immunization Notes Care Provider Nicola soares 03-22-2023 influenza virus vaccine, unspecified formulation Nallely DAMIAN Work Phone: [facility] 03-23-2022 influenza virus vaccine, unspecified formulation Jonnathan Miranda [facility] Comment on above: Result Comment: Bebe melendez - Lot#[id number] - Exp 12/18/2022 04-29-2021 influenza virus vaccine, unspecified formulation Jonnathan Miranda [facility] 04-01-2021 influenza virus vaccine, unspecified formulation Jonnathan Miranda [facility] 05-16-2020 zoster vaccine, live Jonnathan K asten [facility] 02-23-2020 zoster vaccine, live Jonnathan K asten [facility] Raj 02-20-2020 influenza virus vaccine, unspecified formulation Jonnathan Ruben [facility] Payers Date Payer Category Payer Unknown [employer] [id number] 2022-Present [address] [place] [address] [id number] 2022 Unknown [id number] 1965 Unknown [id number] 1966 Unknown [id number] 1966 Unknown [id number] 1966 Unknown [id number] Social History Date Type Detail Facility Start: 08-24-2021 End: 08-21-2023 Tobacco smoking status Never smoked tobacco (finding) [facility] Tobacco smoking status Never [facility] Start: 09-18-2023 End: 04-01-2024 Sex Assigned At [facility] Start: 08-21-2023 Tobacco use and exposure Smokeless tobacco non-user [facility] Start: 09-18-2023 End: 04-01-2024 Alcoholic beverage intake Lifetime non-drinker (finding) [facility] Start: 09-18-2023 End: 04-01-2024 History of Social function [facility] Start: 1965 Sex assigned at Not on file [facility] History of Present illness Narrative 04-01-2024 RICKIE Matos - 04/01/2024 9:30 AM EDT Note Date & Type Note Facility 04-01-2024 History of Presen t illness Narrative Images from the original note were not included. Skin Check Location: Patient requests a full body skin examination Dermatologic history: no history of skin cancer, no history of atypical moles, family history of melanoma (father) New patient Lesions: Location: left arm Duration: years Quality: denies itch, denies pain Associated symptoms: red bumps Treatments: none All pertinent medical history, medications, and allergies were reviewed. General Exam: alert , oriented to person, place, and time , normal affect, well appearing Unaccompanied Scalp, Examined , exam limited by hair Right leg Examined Head, Face Examined Left leg Examined Neck Examined Right foot Examined Chest Examined Left foot Examined Back Examined Buttocks Examined Abdomen Examined Digits,nails: Examined Right arm Examined Left arm Examined Lymphatics: Not examined Hands Examined 1. Lentigo simplex Scattered winter macules in sun-exposed areas. The patient was informed that lentigines are benign pigmented lesions that occur on sun-exposed and sun-damaged skin. No treatment is necessary. Recommended regular use of broad spectrum sunscreen SPF 30 or higher 2. Melanocytic nevi of trunk Trunk Scattered evenly pigmented, winter to brown macules and papules, no suspicious features Counseled regarding these benign growths. Rarely, a nevus can develop into malignant melanoma, so any changing nevi should be promptly re-evaluated. 3. Melanocytic nevi of face Head - Anterior (Face) Winter-brown symmetric macules and papules Counseled regarding these benign growths. Rarely, a nevus can develop into malignant melanoma, so any changing nevi should be promptly re-evaluated. 4. Seborrheic keratosis Trunk Stuck on verrucous, winter-brown papules and plaques. Patient was counseled regarding these benign growths. Removal is normally not necessary, but they may be removed if they are symptomatic or for cosmetic reasons. 5. Capillary angioma Trunk Scattered cartwright-red papule(s). The patient was informed that angiomas are benign growths on the the skin. No treatment is necessary. 6. Neoplasm of unspecified behavior of bone, soft tissue, and skin Left Upper Back Irregularly pigmented papule Lesion biopsy Type of biopsy: tangential Informed consent: discussed and consent obtained Informed consent comment: The risks and benefits of the biopsy were discussed. Risks include but are not limited to bleeding, infection, scarring, pain, and nerve damage. An opportunity to ask questions prior to the procedure was permitted and all questions were answered. Patient was prepped and draped in usual sterile fashion: area cleansed with alcohol. Anesthesia: the lesion was anesthetized in a standard fashion Anesthetic: 1% lidocaine w/ epinephrine 1-100,000 buffered w/ 8.4% NaHCO3 Instrument used: DermaBlade Hemostasis achieved with: electrodesiccation Outcome: patient tolerated procedure well Outcome comment: The specimen was placed in a prelabeled formalin container to be sent for pathology Post-procedure details: sterile dressing applied and wound care instructions given Post-procedure details comment: Emphasized need to contact clinic for any signs of infection, uncontrollable bleeding, or complications. Dressing type: bandage Additional details: Photo taken Amount of lidocaine used: 1.0 cc Specimen A - Dermatopathology exam Differential Diagnosis: Atypical nevus vs. Lentigo maligna vs. Other Check Margins: No Size of lesion: 0.3 x 0.3 cm Biopsy today, see procedure note. 7. Actinic keratosis (8) Chest - Medial (Center) (2), Left Forearm - Anterior, Left chest (3), Right Dorsal Hand, Right Upper Back Erythematous scaly papule. Patient was counseled regarding these sun-induced growths that can develop into squamous cell carcinoma if left untreated. Discussed treatment with cryotherapy. It was emphasized that any treated lesions that fail to resolve should be re-evaluated. Cryotherapy performed today; see procedure note Diagnosis: Actinic keratosis Indication: Precancerous Location: see skin exam Consent: Verbal consent was obtained and risks were discussed, including, but not limited to risks of scarring, darker or security coordinator pigmentary changes, recurrence, incomplete removal and infection. Method: Liquid nitrogen was used to treat the lesion(s) with two 5-10 second freeze-thaw cycles. Number of lesions treated: 8 Post-procedure instructions: Instructions were given orally and in writing. The office will be contacted if the lesion fails to resolve despite treatment, or if a side effect develops such as abnormal crusting, scabbing, redness or tenderness Cryotherapy, skin lesion - Chest - Medial (Center) (2), Left Forearm - Anterior, Left chest (3), Right Dorsal Hand, Right Upper Back Next Visit: Recommended yearly FBSE documented in this encounter [facility] Healthcare Evaluation + Plan note Radiology Note Date & Type Note Facility Evaluation + Plan note Future Appointments Appointment Date:06/19/2022 03:00:00 PM Scheduled Provider: Location:.BD Appointment Type:BD Bone Density (FT) Appointment Date:06/19/2022 03:30:00 PM Scheduled Provider: Location:.MAMMOGRAM Appointment Type:MA Screen (FT) Future Scheduled TestsBD Bone Density DEXA 06/19/22MA Mamm Screen w/CAD if perf and 3D [place] 06/19/22 [facility] Evaluation note Note Date & Type Note Facility Evaluation note Diagnosis 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 Other dyschromia Melanocytic nevi of face Seborrheic keratosis Capillary angioma Nevus, non-neoplastic Neoplasm of unspecified behavior of bone, soft tissue, and skin Actinic keratosis documented in this encounter [facility] Hospital course Narrative Note Date & Type Note Facility Hospital course Narrative No data available for this section [facility] Hospital Discharge instructions Note Date & Type Note Facility Hospital Discharge instructions No data available for this section [facility] Progress note Note Date & Type Note Facility Progress note No data available for this section [facility] Summary Purpose Family History No Family History Records Found No data available for this section No Family History Records FoundNo Family History Records FoundNo Family History Records Found Advance Directives No Advanced Directives Records FoundNo Advanced Directives Records FoundNo Advanced Directives Records FoundNo Advanced Directives Records Found Additional Source Comments Patient Care team informatio n (unrecognized section and content) Science Job Titles Relationship Specialty Start Date End Date Daisy Alexander NP [address] [place] [address] PCP - Medical [place] [employer] 01/30/17 07/01/99 Vita Gonzalez MD [address] [place] [address] PCP - General Family Medicine 11/07/22 Science Job Titles Relationship Specialty Start Date End Date Daisy Alexander NP [address] [place] [address] PCP - [facility] [place] [employer] 01/30/17 07/01/99 Vita Gonzalez MD [address] [place] [address] PCP - General Family Medicine 11/07/22 INFORMATION SOURCE (unrecogn ized section and content) DATE CREATED AUTHOR 06/10/2023 [place] [facility] DATE CREATED AUTHOR AUTHOR'S ORGANIZ ATION 02/19/2024 [place] [facility] DATE CREATED AUTHOR AUTHOR'S ORGANIZ ATION 04/02/2024 [facility] EPIC Reason for Visit (unrecogniz ed section and content) Reason Comments Suspicious Skin Lesion FOR RECORDS PERTAINING TO PATIENTS WHO ARE [...] BE BASED ON THE PRIMARY CLINICAL RECORDS. [facility] C-Note [facility]. provides no warranty or guarantee of the accuracy or completeness of information in this document.
[2024-04-17 15:41] VITALS: BP 104/62; PULSE 73; O2SAT 98
== END 2024-04-17 15:45 | disposition home or self-care (01) ==
LOC: VC 14:54
PROVIDERS: PCP Radiology Diagnostic Radiology; Visit Provider Radiology Diagnostic Radiology
DX: I83.813 Varicose veins of bilateral lower extremities with pain (principal)
CPT/HCPCS: 36471

== ENCOUNTER 2024-04-29 15:02 | Outpatient (OUT) | payer OTHER, SELFPAY ==
--- NOTE | 2024-04-28 14:16 | VEINCLINIC_ITS ---
Vital Signs 04/29/24 15:36 BP 112/74 BP Location Left Brachial BP Position Sitting BP Cuff Size Adult BP Source Manual Cuff Respiration 16 Pulse 64 Pulse Source Monitor Pulse Oximetry (%) 99 Oxygen Delivery Method Room Air Varicose Veins Patient in today for sclerotherapy Heriberto Miller MD personally performed the services described in this documentation, as scribed by Rj Mathur RN in my presence and it is both accurate and complete. Rj Miller RN, am scribing for, and in the presence of, Dr. Heriberto Barnes and in the presence of the patient. medial thigh: bilateral, knee: bilateral, calf: bilateral, ankle: bilateral and nunes: bilateral sharp, intermittent and tender 6 15+ years Worsened in recent months: Yes standing and sitting bed rest, elevating extremities, compression stockings and other Reports edema, leg edema and other History of lower extremity trauma: No Superficial thrombophlebitis: No Family history of varicose veins: yes Has patient had previous lower extremity venous surgery: No Patient has previously received the following treatment(s) for lower extremity varicose veins: Reports vein ablation (Rt GSV, Rt SSV, Lt GSV) and sclerotherapy Does patient have a history of : yes Does patient intend to have future pregnancies: no Has patient had lower extremity venous scan with relux testing: Yes Support hose used: Yes (15+ years) Problems walking or doing physical activity: No How does it affect you: prolonged sitting required for work Do you walk much: Yes Do you stand much: Yes Medication compliance: good Large amounts of Vitamin K: No Review of Systems ROS Narrative Heriberto Miller MD personally performed the services described in this documentation, as scribed by Rj Mathur RN in my presence and it is both accurate and complete. Rj Miller RN, am scribing for, and in the presence of, Dr. Heriberto Barnes and in the presence of the patient. Status of ROS 10 or more systems reviewed and unremark able except as noted in history and below Cardiovascular Reports: edema, swelling of feet/ankles and leg pain with exertion Musculoskeletal Reports: extremity pain, extremity swelling and muscle cramps Integumentary/Breast Reports: itching, skin pain, skin tenderness, skin swelling and changes in skin color [facility] Medical History (Updated 01/29/24 @ 07:47 by Rj Mathur) Phlebitis of superficial vein of left lower extremity ?I80.02 - Phlebitis and thrombophlebitis of superficial vessels of left lower extremity (ICD-10) Phlebitis and thrombophlebitis of superficial vessels of right lower extremity ?I80.01 - Phlebitis and thrombophlebitis of superficial vessels of right lower extremity (ICD-10) Parity 3 ?Z87.898 - Personal history of other specified conditions (ICD-10) 4 Onychomycosis ?B35.1 - Tinea unguium (ICD-10) Hypothyroidism ?E03.9 - Hypothyroidism, unspecified (ICD-10) Depression ?F32.A - Depression, unspecified (ICD-10) Varicose veins of bilateral lower extremities with pain ?I83.813 - Varicose veins of bilateral lower extremities with pain (ICD-10) Migraine ?G43.909 - Migraine, unspecified, not intractable, without status migrainosus (ICD-10) Telangiectasia ?I78.1 - Nevus, non-neoplastic (ICD-10) Surgical History (Updated 04/29/24 @ 15:37 by Rj Mathur) S/P sclerotherapy of varicose veins ?Z98.890 - Other specified postprocedural states (ICD-10) ?Z86.79 - Personal history of other diseases of the circulatory system (ICD- 10) S/P sclerotherapy of varicose veins ?Z98.890 - Other specified postprocedural states (ICD-10) ?Z86.79 - Personal history of other diseases of the circulatory system (ICD- 10) S/P sclerotherapy of varicose veins ?Z98.890 - Other specified postprocedural states (ICD-10) ?Z86.79 - Personal history of other diseases of the circulatory system (ICD- 10) S/P sclerotherapy of varicose veins ?Z98.890 - Other specified postprocedural states (ICD-10) ?Z86.79 - Personal history of other diseases of the circulatory system (ICD-10) Status post laser ablation of incompetent vein ?Z98.890 - Other specified postprocedural states (ICD-10) S/P sclerotherapy of varicose veins ?Z98.890 - Other specified postprocedural states (ICD-10) ?Z86.79 - Personal history of other diseases of the circulatory system (ICD- 10) History of laparoscopy-assisted vaginal hysterectomy ?Z90.710 - Acquired absence of both cervix and uterus (ICD-10) Previous section ?Z98.891 - History of uterine scar from previous surgery (ICD-10) Family History (Updated 12/31/23 @ 15:22 by Roma Mcintyrekendal) Father Family history of cancer Family history of hypertension Mother Family history of hypertension Varicose veins of bilateral lower extremities with pain Social History (Updated 12/31/23 @ 15:22 by Roma Mcintyrekendal) Within the past year, how often did you have a drink containing alcohol: 2-4 times a month Smoking status: Never smoker Non-prescribed substance use: denies use Meds Home Medications and Allergies Home Medications ?Medication ?Instructions ?Recorded ?Confirmed ?Type albuterol 90 mcg-budesonide 80 2 inh inhalation DAILY PRN 12/31/23 12/31/23 History mcg/actuation HFA aerosol inhaler shortness of breath (Airsupra) amoxicillin 875 mg-potassium 1 tab PO BID 12/31/23 12/31/23 History clavulanate 125 mg tablet atogepant 60 mg tablet (Qulipta) 60 mg PO DAILY 12/31/23 12/31/23 History fluoxetine 20 mg capsule 20 mg PO DAILY 12/31/23 12/31/23 History levothyroxine 75 mcg tablet 75 mcg PO DAILY 12/31/23 12/31/23 History (Euthyrox) rizatriptan 10 mg tablet (Maxalt) See Rx Instructions PO .COMPLEX 12/31/23 12/31/23 History terbinafine HCl 250 mg tablet 250 mg PO DAILY 12/31/23 12/31/23 History ubrogepant 100 mg tablet (Ubrelvy) mg 12/31/23 History Allergies Allergy/AdvReac Type Severity Reaction Status Date / Time No Known Drug Allergies Allergy Verified 10/19/23 15:25 Assessment and Plan Assessment and Plan (1) Varicose veins of bilateral lower extremities with pain: Plan sclerotherapy: Risks and benefits of the procedure were discussed at length and informed written consent was obtained.? Time-out procedure was performed and the correct patient and procedure were confirmed.? Staff present during time-out: Rj Mathur RN and Heriberto Barnes MD.? Patient prepped and procedure performed in usual s terile fashion. Injections performed by Dr. Barnes and Rj Mathur RN Sclerosing Agent:?? 4cc 0.5% Polidocanol Site Injected: Right leg Number of Injections: 29 Anesthesia: Supercooled air The patient tolerated the procedure well without complication.? Hemostasis was obtained and thigh-high compression stocking was applied by patient.? Instructed patient to wear stocking for at least 96 hours and sleep with it and only remove for showering.? Will wear stocking for 2 weeks.? The patient verbalizes understanding and states they will comply.? Patient was given post-procedure instructions. Patient was discharged in good condition.? Patient care complete at this time. Patient to f/u in future as necessary. IHeriberto MD personally performed the services described in this documentation, as scribed by Rj Mathur RN in my presence and it is both accurate and complete. IRj RN, am scribing for, and in the presence of, Dr. Heriberto Barnes and in the presence of the patient.
--- NOTE | 2024-04-29 11:45 | P.DS_ITS ---
Discharge Plan Discharge Disposition: Home, Self-Care Follow Up Appointments: as necessary Patient Instructions: Polidocanol (By injection) (Jarad Condon) Print Language: [place] Citizen Discharge Date/Time: 04/29/24 15:43
--- NOTE | 2024-04-29 15:02 | VEIN_ITS ---
[address] [address] Patient Name: ANUPAMA CARDOSO MRN: [id number] date: 1965 Sex: F Assigned Patient Location: Current Patient Location: Accession/Order Number: [id number] Exam Date: 04/29/2024 15:02 Report Date: 04/29/2024 16:04 At the request of: FRANCES LEWIS Procedure: VC INJ Sclerosing SOLMULT Vein EXAMINATION: VC INJ Sclerosing SOLMULT Vein HISTORY: I83.813 - Varicose veins of bilateral lower extremities w... The risks and benefits of the procedure were explained at length to the patient and informed written consent was obtained. The procedure was performed under sterile technique. The patient's leg was wrapped with Coban and postprocedural verbal and written instructions provided. Rj Mathur RN was present and assisted. SCLEROSANT: 2mL 0.5% Polidocanol. VEIN(S) INJECTED: 29 veins in the right leg. VISUALIZATION: Ultrasound was not used to visualize the sclerosant. ANESTHESIA: Supercooled air. COMPLICATIONS: None. Electronically authenticated by: JOSE FISHER Date: 04/29/2024 16:04
[2024-04-29 15:36] VITALS: BP 112/74; PULSE 64; O2SAT 99
== END 2024-04-29 15:43 | disposition home or self-care (01) ==
LOC: VC 15:02
PROVIDERS: PCP Radiology Diagnostic Radiology; Visit Provider Radiology Diagnostic Radiology
DX: I83.813 Varicose veins of bilateral lower extremities with pain (principal)
CPT/HCPCS: 36471